=== PATIENT | male | born 1960 | race Caucasian/White ===

== ENCOUNTER 2017-08-08 11:28 | Emergency (ER) | payer MEDICAID ==
[2017-08-08] MEDS ORDERED: ASPIRIN 81 MG TABLET, CHEWABLE PO ONE (12:01)
--- NOTE | 2017-08-08 12:03 | ER Document Report ---
ED Medical Screen (RME) - General Chief Complaint: Chest Pain Stated Complaint: CHEST PAIN Time Seen by Provider: 08/08/17 11:55 Notes: RME DISCLOSURE I have seen this patient as part of a Rapid Medical Evaluation and, if applicable, placed any initially appropriate orders. The patient will be seen and fully evaluated, including a full history and physical exam, by a provider ( in Main ED or Fast Track) when a room becomes available. 56-year-old male PMH tobacco abuse COPD here with complaints of left-sided constant chest pain ongoing for the past 2-3 days. Pain is worse with coughing and deep breathing. It is not worse with exertion. He denies any extremity pain/swelling. Denies prior history of PE DVT or pneumothorax. He does smoke 1 pack of cigarettes daily for the past 40 years. Per chart review, his prior chest CT does show bilateral apical blebs. TRAVEL OUTSIDE OF THE [place] IN LAST 30 DAYS: No - Related Data Allergies/Adverse Reactions: adhesive [Adhesive] Allergy (Verified 08/08/17 11:53) pseudoephedrine HCl [From Sudafed] Allergy (Verified 08/08/17 11:53) Home Medications: pt unsure of names - sleep medications Past Medical History - Social History Chew tobacco use (# tins/day): No Frequency of alcohol use: None Drug Abuse: None - Past Medical History Cardiac Medical History: Reports: Hx Hypercholesterolemia Pulmonary Medical History: Reports: Hx COPD, Hx Pneumonia Denies: Hx Tuberculosis Neurological Medical History: Denies: Hx Seizures Renal/ Medical History: Denies: Hx Peritoneal Dialysis Musculoskeltal Medical History: Reports Hx Arthritis, Reports Hx Muscle Weakness , Reports Hx Musculoskeletal Deformity, Reports Hx Musculoskeletal Trauma Psychiatric Medical History: Reports: Hx Anxiety, Hx Depression Past Surgical History: Reports: Hx Abdominal Surgery - hernia repair, Hx Appendectomy, Hx Cholecystectomy, Hx Herniorrhaphy. Denies: Hx Pacemaker - Immunizations Immunizations up to date: Yes Hx Diphtheria, Pertussis, Tetanus Vaccination: Yes Physical Exam - Vital signs Vitals: Temp Pulse Resp BP Pulse Ox 97.5 F 66 20 121/78 96 08/08/17 11:43 08/08/17 11:43 08/08/17 11:43 08/08/17 11:43 08/08/17 11:43 Course - Vital Signs Vital signs: Temp Pulse Resp BP Pulse Ox 97.5 F 66 20 121/78 96 08/08/17 11:43 08/08/17 11:43 08/08/17 11:43 08/08/17 11:43 08/08/17 11:43
[2017-08-08 12:26] LABS: ABSOLUTE BASOPHILS # (AUTO) 0.1 10^3/uL (0.0-0.2); ABSOLUTE EOSINOPHILS # (AUTO) 0.1 10^3/uL (0.0-0.6); ABSOLUTE LYMPHOCYTES (AUTO) 2.4 10^3/uL (0.5-4.7); ABSOLUTE MONOCYTES (AUTO) 1.1 10^3/uL (0.1-1.4); ABSOLUTE NEUT (AUTO) 7.9 10^3/uL (1.7-8.2); BASOPHILS % (AUTO) 0.6 % (0-2); EOSINOPHILS % (AUTO) 0.8 % (0-6); HEMOGLOBIN 15.3 g/dL (13.5-17.0); LYMPHOCYTES % (AUTO) 20.6 % (13-45); MEAN CORPUSCULAR HEMOGLOBIN 28.6 pg (27.0-33.4); MEAN CORPUSCULAR HGB CONC 33.2 g/dL (32.0-36.0); MEAN CORPUSCULAR VOLUME 86 fl (80-97); MONOCYTES % (AUTO) 9.2 % (3-13); PLATELET COUNT 221 10^3/uL (150-450); RED BLOOD COUNT 5.35 10^6/uL (4.35-5.55); RED CELL DISTRIBUTION WIDTH 13.8 % (11.5-14.0); SEGMENTED NEUTROPHILS % (AUTO) 68.8 % (42-78); TOTAL CELLS COUNTED % (AUTO) 100 %; WHITE BLOOD COUNT 11.4 10^3/uL (4.0-10.5)
[2017-08-08 12:43] LABS: ANION GAP 13 (5-19); BLOOD UREA NITROGEN 13 mg/dL (7-20); CALCIUM 9.6 mg/dL (8.4-10.2); CARBON DIOXIDE 30 mmol/L (22-30); CHLORIDE 103 mmol/L (98-107); GLUCOSE 108 mg/dL (75-110); POTASSIUM 4.8 mmol/L (3.6-5.0); SODIUM 145.7 mmol/L (137-145)
--- NOTE | 2017-08-08 13:01 | RADIOLOGY REPORT (SQ) ---
EXAM DESCRIPTION: CHEST 2 VIEWS COMPLETED DATE/TIME: 08/08/2017 12:41 pm REASON FOR STUDY: smoker; CP worse w coughing; eval ptx pna COMPARISON: 02/13/2015 EXAM PARAMETERS: NUMBER OF VIEWS: two views TECHNIQUE: Digital Frontal and Lateral radiographic views of the chest acquired. RADIATION DOSE: NA LIMITATIONS: none FINDINGS: LUNGS AND PLEURA: Patchy left lower lobe airspace disease. Lungs and pleural spaces other allen clear. MEDIASTINUM AND HILAR STRUCTURES: No masses or contour abnormalities. HEART AND VASCULAR STRUCTURES: Heart normal size. No evidence for failure. BONES: No acute findings. HARDWARE: None in the chest. OTHER: No other significant finding. IMPRESSION: PATCHY LEFT LOWER LOBE AIRSPACE DISEASE MAY REPRESENT DEVELOPING PNEUMONIA. TECHNICAL DOCUMENTATION: JOB ID: [id number] [employer]- All Rights Reserved Reading location - IP/workstation name: [email or web address]
[2017-08-08] MEDS ORDERED: GUAIFENESIN/D-METHORPHAN (200-20 MG) SYRUP 10 ML PO ONE (13:07)
[2017-08-08] MEDS ORDERED: IPRATROPIUM/ALBUTEROL 0.5-2.5 MG/3 ML AMPUL NEB ONE (13:07)
--- NOTE | 2017-08-08 13:36 | RADIOLOGY REPORT (SQ) ---
EXAM DESCRIPTION: CTA CHEST COMPLETED DATE/TIME: 08/08/2017 1:25 pm REASON FOR STUDY: elevated d dimer, cp, sob COMPARISON: CT ABDOMEN 02/13/[address] CHEST 09/06/2014 TECHNIQUE: CT scan of the chest performed using helical scanning technique with dynamic intravenous contrast injection. Images reviewed with lung, soft tissue and bone windows. Reconstructed coronal and sagittal MPR images reviewed. Additional 3 dimensional post-processing performed to develop Maximal Intensity Projection images (WI P). All images stored on PACS. All CT scanners at this facility use dose modulation, iterative reconstruction, and/or weight based d osing when appropriate to reduce radiation dose to as low as reasonably achievable (ALARA). [facility]: Dose Right [facility]: CareDose [facility]: Dose Right [facility]: Teradose 4D [facility]: CareFamily CONTRAST TYPE AND DOSE: contrast/concentration: Isovue 370.00 mg/ml; Total Contrast Delivered: 82.0 ml; Total Saline Delivered: 110.0 ml Contrast bolus optimized for the pulmonary arteries. Not diagnostic for the aorta. RENAL FUNCTION: Creatinine measures 1.07 RADIATION DOSE: CT Rad equipment meets quality standard of care and radiation dose reduction techniq ues were employed. CTDIvol: 25.7 - 46.3 mGy. DLP: 1064 mGy-cm. . LIMITATIONS: None. FINDINGS: LUNGS AND PLEURA: Stable degree of paraseptal emphysema. No masses, infiltrates, pneumoth orax. No pleural effusions, calcifications. AORTA AND GREAT VESSELS: No aneurysm. Contrast bolus not optimized for the aorta. HEART: No pericardial effusion. No significant coronary artery calcifications. PULMONARY ARTERIES: No emboli visualized in the main pulmonary arteries or the segmental branches. HILAR AND MEDIASTINAL STRUCTURES: No identified masses or abnormal nodes. HARDWARE: None in the chest. UPPER ABDOMEN: The patient is again noted to be status post cholecystectomy with stable mild dilated common bile duct measuring up to 11 mm. There is a new metallic density seen within the distal commo n bile duct just proximal to the ampulla of Vater on series 3, image 139. THYROID AND OTHER SOFT TISSUES: No masses. No adenopathy. BONES: No acute or significant finding. 3D MIPS: Confirm above findings. OTHER: No other significant finding. IMPRESSION: UNREMARKABLE CTA CHEST WITHOUT PULMONARY EMBOLI IDENTIFIED. METALLIC DENSITY SEEN WITHIN THE DISTAL COMMON BILE DUCT PATIENT IS STATUS POST CHOLECYSTECTOMY. COR RELATE WITH BILIARY ENZYMES AND CONSIDER GI CONSULTATION FOR ERCP. COMMENT: Quality ID # [id number]: Final reports with documentation of one or more dose reduction techniques (e.g., Automated exposure control, adjustment of the mA and/or kV according to patient size, use of iterative reconstruction technique) TECHNICAL DOCUMENTATION: JOB ID: [id number] [employer]- All Rights Reserved Reading location - IP/workstation name: [email or web address]
--- NOTE | 2017-08-08 14:55 | ER Document Report ---
ED General - General Chief Complaint: Chest Pain Stated Complaint: CHEST PAIN Time Seen by Provider: 08/08/17 11:55 Mode of Arrival: Ambulatory Information source: Patient Notes: Patient is a 56-year-old male with COPD who presents to the ER today for about 1 week of productive cough, shortness of breath and wheezing. Patient has no inhaler at home and has not been taking anything [id number] for his symptoms. He admits to fever and chills but has not checked his temperature. He admits to some intermittent chest pain with coughing. TRAVEL OUTSIDE OF THE [place] IN LAST 30 DAYS: No - Related Data Allergies/Adverse Reactions: adhesive [Adhesive] Allergy (Verified 08/08/17 11:53) pseudoephedrine HCl [From Sudafed] Allergy (Verified 08/08/17 11:53) Home Medications: pt unsure of names - sleep medications Past Medical History - General Information source: Patient - Social History Smoking Status: Current Every Day Smoker Chew tobacco use (# tins/day): No Frequency of alcohol use: None Drug Abuse: None Family History: Reviewed & Not Pertinent Patient has suicidal ideation: No Patient has homicidal ideation: No - Past Medical History Cardiac Medical History: Reports: Hx Hypercholesterolemia Pulmonary Medical History: Reports: Hx COPD, Hx Pneumonia Denies: Hx Tuberculosis Neurological Medical History: Denies: Hx Seizures Renal/ Medical History: Denies: Hx Peritoneal Dialysis Musculoskeltal Medical History: Reports Hx Arthritis, Reports Hx Muscle Weakness , Reports Hx Musculoskeletal Deformity, Reports Hx Musculoskeletal Trauma Psychiatric Medical History: Reports: Hx Anxiety, Hx Depression Past Surgical History: Reports: Hx Abdominal Surgery - hernia repair, Hx Appendectomy, Hx Cholecystectomy, Hx Herniorrhaphy. Denies: Hx Pacemaker - Immunizations Immunizations up to date: Yes Hx Diphtheria, Pertussis, Tetanus Vaccination: Yes Review of Systems - Review of Systems Notes: Had Constitutional: See HPI EENT: No symptoms reported Cardiovascular: No symptoms reported Respiratory: See HPI Gastrointestinal: No symptoms reported Genitourinary: No symptoms reported Male Genitourinary: No symptoms reported Musculoskeletal: No symptoms reported Skin: No symptoms reported Hematologic/Lymphatic: No symptoms reported Neurological/Psychological: No symptoms reported Physical Exam - Vital signs Vitals: Temp Pulse Resp BP Pulse Ox 97.5 F 66 20 121/78 96 08/08/17 11:43 08/08/17 11:43 08/08/17 11:43 08/08/17 11:43 08/08/17 11:43 - Notes Notes: PHYSICAL EXAMINATION: GENERAL: Mildly ill-appearing, but in no acute distress. HEAD: Atraumatic, normocephalic. EYES: Pupils equal round and reactive to light, extraocular movements intact, sclera anicteric, conjunctiva are normal. ENT: ear canals without erythema or foreign body, TMs pearly velasquez with good bony landmarks, nares patent, oropharynx clear without exudates. Moist mucous membranes. NECK: Normal range of motion, supple without lymphadenopathy LUNGS: rhonchi bilateral upper and lower lobes, No wheezes rales HEART: Regular rate and rhythm without murmurs ABDOMEN: Soft, no tenderness. No guarding, no rebound BACK: no vertebral tenderness, normal ROM GI/: no CVA tenderness EXTREMITIES: Normal range of motion, no pitting edema. No cyanosis. NEUROLOGICAL: Cranial nerves grossly intact. Normal sensory/motor exams. PSYCH: Normal mood, normal affect. SKIN: Warm, Dry, normal turgor, no rashes or lesions noted Course - Re-evaluation Re-evalutation: 08/08/17 17:57 D-dimer was ordered in triage which was elevated so CTA of the chest was performed and negative for any acute pathology, however chest x-ray did report a left lower lobe patchy opacity, probable pneumonia. Patient given antibiotics , cough medication, breathing treatments, steroids to go home with. Patient did get DuoNeb and cough medication here and does feel better. Vital signs are all stable, patient is afebrile with a normal respiratory rate and pulse ox on room air. 08/08/17 17:59 Cardiac enzymes negative, EKG reveals a normal sinus rhythm without evidence of ischemia or abnormality. - Vital Signs Vital signs: Temp Pulse Resp BP Pulse Ox 97.8 F 66 9 L 99/63 L 92 08/08/17 15:07 08/08/17 11:43 08/08/17 15:00 08/08/17 15:00 08/08/17 15:00 - Laboratory Result Diagrams: 08/08/17 12:04 08/08/17 12:04 Laboratory results interpreted by me: 08/08/17 08/08/17 08/08/17 12:04 12:04 12:04 WBC 11.4 H D-Dimer 0.73 H Sodium 145.7 H Discharge - Discharge Clinical Impression: Pneumonia Qualifiers: Pneumonia type: due to unspecified organism Laterality: unspecified laterality Lung location: unspecified part of lung Qualified Code(s): J18.9 - Pneumonia, unspecified organism Chronic obstructive pulmonary disease Qualifiers: COPD type: unspecified COPD Qualified Code(s): J44.9 - Chronic obstructive pulmonary disease, unspecified Condition: Stable Disposition: HOME, SELF-CARE Additional Instructions: Return immediately for any new or worsening symptoms. Follow up with primary care provider, call tomorrow to make followup appointment. Prescriptions: Albuterol Sulfate [Proair HFA] 1 - 2 puff IH Q4 PRN #1 inhaler PRN Reason: Azithromycin [Zithromax 250 mg Tablet] 250 mg PO ASDIR PRN #6 tablet PRN Reason: Guaifenesin/D-Methorphan Hb [Robitussin-Dm Syrup 10 Ml Udcup] 10 ml PO Q4 PRN # 120 ml PRN Reason: Prednisone 60 mg PO DAILY #30 tablet Referrals: JP MENDES MD [Primary Care Provider] - Follow up as needed
[2017-08-08 15:01] VITALS: BP 99/63
--- NOTE | 2017-08-08 17:18 | EKG REPORT ---
SEVERITY:- ABNORMAL ECG - SINUS RHYTHM LEFT ANTERIOR FASCICULAR BLOCK : Confirmed by: Alejandra Islas 08-Aug-2017 17:17:04
== END 2017-08-08 15:07 | disposition home or self-care (01) ==
LOC: ER 11:28
DX: J44.0 Chronic obstructive pulmonary disease with (acute) lower respiratory infection (principal); J18.9 Pneumonia, unspecified organism; R05 Cough; R06.02 Shortness of breath; R07.89 Other chest pain; R79.1 Abnormal coagulation profile; F17.200 Nicotine dependence, unspecified, uncomplicated; Z88.8 Allergy status to other drugs, medicaments and biological substances; Z91.048 Other nonmedicinal substance allergy status
CPT/HCPCS: 93005; 94640; 99285; 36415; 85025; 80048; 84484; 85379; 71046; 71275; 93010; J3490; J7620

== ENCOUNTER → 2018-08-25 | Outpatient (CLI) | payer MEDICAID ==
--- NOTE | 2018-08-25 12:37 | RADIOLOGY REPORT (SQ) ---
EXAM DESCRIPTION: CT ABD/PELVIS COMBO COMPLETED DATE/TIME: 08/25/2018 11:30 am REASON FOR STUDY: HEMATURIA (R31.9) R31.9 HEMATURIA, UNSPECIFIED COMPARISON: None. TECHNIQUE: CT scan of the abdomen and pelvis performed with and without intravenous contrast, and wi thout oral contrast. Contrasted imaging performed helical scanning technique and dynamic intravenous contrast injection. Images reviewed with lung, soft tissue, and bone windows. Reconstructed coronal a nd sagittal MPR images reviewed. Delayed images for evaluation of the urinary system also acquired. A ll images stored on PACS. All CT scanners at this facility use dose modulation, iterative reconstruction, and/or weight based d osing when appropriate to reduce radiation dose to as low as reasonably achievable (ALARA). [facility]: Dose Right [facility]: CareDose [facility]: Dose Right [facility]: Teradose 4D [facility]: [place] CONTRAST TYPE AND DOSE: contrast/concentration: Isovue 350.00 mg/ml; Total Contrast Delivered: 100.0 ml; Total Saline Delivered: 72.0 ml RENAL FUNCTION: Creatinine 1.2 RADIATION DOSE: CT Rad equipment meets quality standard of care and radiation dose reduction techniq ues were employed. CTDIvol: 18.1 - 20.6 mGy. DLP: 3209 mGy-cm. . LIMITATIONS: None. FINDINGS: NON-CONTRASTED IMAGING: No renal, ureteral, or bladder calcifications. POST-CONTRASTED IMAGING: LOWER CHEST: No significant findings. No nodules or infiltrates. LIVER: Normal size. No masses. No dilated ducts. SPLEEN: Normal size. No focal lesions. PANCREAS: No masses. No significant calcifications. No adjacent inflammation or peripancreatic fluid collections. Pancreatic duct not dilated. GALLBLADDER: Surgically absent. ADRENAL GLANDS: No significant masses or asymmetry. RIGHT KIDNEY AND URETER: No solid masses. No significant calcifications. No hydronephrosis or hyd roureter. LEFT KIDNEY AND URETER: No solid masses. No significant calcifications. No hydronephrosis or hydr oureter. AORTA AND VESSELS: No aneurysm. No dissection. Renal arteries, SMA, celiac without stenosis. RETROPERITONEUM: No retroperitoneal adenopathy, hemorrhage or masses. BOWEL AND PERITONEAL CAVITY: No masses or inflammatory changes. No free fluid or peritoneal masses. APPENDIX: Surgically absent. PELVIS: No mass. No free fluid. Normal bladder. ABDOMINAL WALL: No masses. No hernias. BONES: No significant or acute findings. OTHER: No other significant finding. IMPRESSION: No significant or acute abnormality in the abdomen or pelvis. There is no explanation f or gross hematuria. TECHNICAL DOCUMENTATION: JOB ID: [id number] Quality ID # [id number]: Final reports with documentation of one or more dose reduction techniques (e.g., Au tomated exposure control, adjustment of the mA and/or kV according to patient size, use of iterative reconstruction technique) 2010 [employer]- All Rights Reserved Reading location - IP/workstation name: [email or web address]
== END ==
LOC: RAD 10:48
PROVIDERS: ATTEND Internal Medicine
DX: R31.9 Hematuria, unspecified (principal)
CPT/HCPCS: 74178; 82565

== ENCOUNTER 2018-09-11 20:41 | Emergency (ER) | payer MEDICAID ==
[2018-09-11] MEDS ORDERED: NORMAL SALINE 1000 ML 1,000 ML IV ONE (21:28)
[2018-09-11] MEDS ORDERED: ONDANSETRON HCL INJ/PF 4 MG/2 ML SDV IV ONE (21:28)
[2018-09-11 21:38] LABS: ABSOLUTE EOSINOPHILS # (AUTO) 0.1 10^3/uL (0.0-0.6); ABSOLUTE LYMPHOCYTES (AUTO) 1.1 10^3/uL (0.5-4.7); ABSOLUTE MONOCYTES (AUTO) 0.8 10^3/uL (0.1-1.4); ABSOLUTE NEUT (AUTO) 7.2 10^3/uL (1.7-8.2); BASOPHILS % (AUTO) 0.5 % (0-2); EOSINOPHILS % (AUTO) 0.7 % (0-6); HEMATOCRIT 42.8 % (37.9-51.0); HEMOGLOBIN 14.3 g/dL (13.5-17.0); MEAN CORPUSCULAR HEMOGLOBIN 28.1 pg (27.0-33.4); MEAN CORPUSCULAR HGB CONC 33.3 g/dL (32.0-36.0); MEAN CORPUSCULAR VOLUME 84 fl (80-97); MONOCYTES % (AUTO) 8.4 % (3-13); PLATELET COUNT 247 10^3/uL (150-450); RED BLOOD COUNT 5.08 10^6/uL (4.35-5.55); RED CELL DISTRIBUTION WIDTH 13.7 % (11.5-14.0); SEGMENTED NEUTROPHILS % (AUTO) 78.4 % (42-78); TOTAL CELLS COUNTED % (AUTO) 100 %; WHITE BLOOD COUNT 9.1 10^3/uL (4.0-10.5)
[2018-09-11 21:55] LABS: ALANINE AMINOTRANSFERASE 132 U/L (21-72); ALBUMIN 4.2 g/dL (3.5-5.0); ALKALINE PHOSPHATASE 451 U/L (38-126); ANION GAP 12 (5-19); ASPARTATE AMINO TRANSFERASE 204 U/L (17-59); BILIRUBIN,DIRECT 1.6 mg/dL (0.0-0.4); BLOOD UREA NITROGEN 9 mg/dL (7-20); CALCIUM 10.7 mg/dL (8.4-10.2); CARBON DIOXIDE 29 mmol/L (22-30); CHLORIDE 101 mmol/L (98-107); GLUCOSE 135 mg/dL (75-110); POTASSIUM 4.2 mmol/L (3.6-5.0); TOTAL PROTEIN 7.6 g/dL (6.3-8.2)
[2018-09-11 22:06] LABS: CREATINE KINASE MB 2.24 ng/mL (<4.55); TROPONIN I < 0.012 ng/mL
[2018-09-11] MEDS ORDERED: HYDROMORPHONE HCL INJ/PF 2 MG/ML AMPULE IV ONE (22:53)
[2018-09-11] MEDS ORDERED: PROMETHAZINE HCL INJ 25 MG/1 ML VIAL IM ONE (22:53)
--- NOTE | 2018-09-11 23:49 | ER Document Report ---
ED General - General Chief Complaint: Abdominal Pain Stated Complaint: ABDOMNAL PAIN Time Seen by Provider: 09/11/18 22:47 Primary Care Provider: JP MENDES MD [Primary Care Provider] - Follow up as needed Notes: This is 58-year-old male presents with complaint of upper abdominal pain and vomiting after eating some strawberries. Most of right upper quadrant. He does have a history of cholecystectomy that he says proximal 15 years ago. 2 to 3 years after that he developed what sounds to be a hernia and had mesh placed. Denies any surgery since then. He denies drinking alcohol. Denies fevers. Denies infections. Says he still has pain in the upper abdomen. No diarrhea. No dysuria. Last bowel movement was early this morning and was normal. TRAVEL OUTSIDE OF THE [place] IN LAST 30 DAYS: No - Related Data Allergies/Adverse Reactions: adhesive [Adhesive] Allergy (Verified 08/08/17 11:53) pseudoephedrine HCl [From Sudafed] Allergy (Verified 08/08/17 11:53) Past Medical History - Social History Smoking Status: Current Every Day Smoker Chew tobacco use (# tins/day): No Frequency of alcohol use: None Drug Abuse: None Family History: Reviewed & Not Pertinent Patient has suicidal ideation: No Patient has homicidal ideation: No - Past Medical History Cardiac Medical History: Reports: Hx Hypercholesterolemia Pulmonary Medical History: Reports: Hx COPD, Hx Pneumonia Denies: Hx Tuberculosis Neurological Medical History: Denies: Hx Seizures Renal/ Medical History: Denies: Hx Peritoneal Dialysis Musculoskeletal Medical History: Reports Hx Arthritis, Reports Hx Muscle Weakness, Reports Hx Musculoskeletal Deformity, Reports Hx Musculoskeletal Trauma Psychiatric Medical History: Reports: Hx Anxiety, Hx Depression Past Surgical History: Reports: Hx Abdominal Surgery - hernia repair, Hx Appendectomy, Hx Cholecystectomy, Hx Herniorrhaphy. Denies: Hx Pacemaker - Immunizations Immunizations up to date: Yes Hx Diphtheria, Pertussis, Tetanus Vaccination: Yes Review of Systems - Review of Systems Notes: My Normal Review Basic REVIEW OF SYSTEMS: CONSTITUTIONAL : Denies fever, chills, or sweats. Denies recent illness. EENT: Denies eye, ear, throat, or mouth pain or symptoms. Denies nasal or sinus congestion. CARDIOVASCULAR: Denies chest pain. RESPIRATORY: Denies cough, cold, or chest congestion. Denies shortness of breath, difficulty breathing, or wheezing. GASTROINTESTINAL: Upper abdominal pain. Has vomiting. MUSCULOSKELETAL: Denies neck or back pain or joint pain or swelling. SKIN: Denies rash or skin lesions. NEUROLOGICAL: Denies altered mental status or loss of consciousness. Denies headache. Denies weakness or paralysis or loss of use of either side. Denies problems with gait or speech. Denies sensory or motor loss. ALL OTHER SYSTEMS REVIEWED AND NEGATIVE. Physical Exam - Vital signs Vitals: Temp Pulse Resp BP Pulse Ox 98.3 F 58 L 18 131/84 H 94 09/11/18 20:51 09/11/18 20:51 09/11/18 20:51 09/11/18 20:51 09/11/18 20:51 - Notes Notes: General Appearance: Well nourished, alert, cooperative, no acute distress, mild obvious discomfort. Vitals: reviewed, See vital signs table. Head: no swelling or tenderness to the head Eyes: PERRL, EOMI, Conjuctiva clear Mouth: No decreasd moisture Lungs: No wheezing, No rales, No rhonci, No accessory muscle use, good air exchange bilaterally. Heart: Normal rate, Regular rythm, No murmur, no rub Abdomen: Normal BS, soft, No rigidity, patient has moderate right upper quadrant and epigastric abdominal tenderness to palpation. No pain to palpation over lower abdomen. Some guarding to the right upper quadrant. Extremities: strength 5/5 in all extremities, good pulses in all extremities, no swelling or tenderness in the extremities, no edema. Skin: warm, dry, appropriate color, no rash Neuro: speech clear, oriented x 3, normal affect, responds appropriately to que stions. Course - Re-evaluation Re-evalutation: 09/12/18 02:02 I did speak with Dr. Hill , hospitalist at this in a [facility], who agrees to accept the patient. Patient appears to have a retained common bile duct stone which will likely require ERCP for removal. We do not have any GI coverage here to do an ERCP and therefore patient has to be transferred. Shortly after I got off the phone the patient started to have some oxygen desaturation. This appears to be because his pain is coming back and he is splinting his breathing. I did relate some to his lungs and his lung whaley are clear. Does not require any breathing treatments. I did put on some nasal cannula to bring his oxygen saturation back up to normal. He quickly responded to the nasal cannula. We will give him a dose of pain medicine to help decrease his pain so that he is not splinting his breathing. Dictation of this chart was performed using voice recognition software; therefore, there may be some unintended grammatical errors. - Vital Signs Vital signs: Temp Pulse Resp BP Pulse Ox 98.3 F 58 L 18 131/84 H 94 09/11/18 20:51 09/11/18 20:51 09/11/18 20:51 09/11/18 20:51 09/11/18 20:51 - Laboratory Result Diagrams: 09/11/18 21:25 09/11/18 21:25 Laboratory results interpreted by me: 09/11/18 09/11/18 09/11/18 21:25 21:25 23:44 Seg Neutrophils % 78.4 H Lymphocytes % 12.0 L Glucose 135 H Calcium 10.7 H Total Bilirubin 2.0 H Direct Bilirubin 1.6 H AST 204 H ALT 132 H Alkaline Phosphatase 451 H Urine Ketones TRACE H Urine Bilirubin SMALL H Urine Urobilinogen 4.0 H Discharge - Discharge Clinical Impression: Common bile duct (CBD) obstruction Condition: Stable Disposition: [facility] Referrals: JP MENDES MD [Primary Care Provider] - Follow up as needed
--- NOTE | 2018-09-12 00:03 | RADIOLOGY REPORT (SQ) ---
EXAM DESCRIPTION: US ABDOMEN DOPPLER LIMITED COMPLETED DATE/TME: 09/11/2018 22:53 CLINICAL HISTORY: 58 years, Male, RUQ pain, elevated LFTs, previous cholecystectomy COMPARISON: Prior CT from 08/25/2018 TECHNIQUE: 2-D sonographic images of the abdomen were performed. Doppler and spectral wave forms were also utilized. LIMITATIONS: None. FINDINGS: The pancreas is obscured by overlying bowel gas artifact. The proximal abdominal aorta measures 2.7 cm in AP diameter. However, the mid to distal portions of the abdominal aorta were obscured by overlying bowel gas. The liver appears overall normal in echogenicity. It measures 17 cm in length. No focal liver lesions are appreciated. Antegrade flow is documented within the main portal vein. Common bile duct diameter measures 1.3 cm, similar to the previous CT dated 08/25/2018. However, the patient is status post cholecystectomy. No obvious intrahepatic biliary duct dilatation is evident. Right kidney measures 9.6 x 4.7 cm in size. No gross evidence of hydronephrosis. IMPRESSION: Substantially limited examination secondary to patient body habitus/bowel gas. Mild common bile duct dilatation (1.3 cm). This is potentially related to prior cholecystectomy. Correlate for obstructive laboratories. No other acute sonographic abnormality within the limitations of the exam. 2.7 cm abdominal aortic aneurysm suspected. Recommend follow-up every 5 years. Reference: J Vasc Surg 2009 Oct;50(4 Suppl):S2-49. copyright 2010 [employer]- All Rights Reserved
[2018-09-12 00:06] LABS: APPEARANCE,URINE CLEAR; BILIRUBIN,URINE SMALL (NEGATIVE); COLOR,URINE AMBER; GLUCOSE, URINE NEGATIVE (NEGATIVE); KETONES,URINE TRACE mg/dL (NEGATIVE); LEUKOCYTE ESTERASE,URINE NEGATIVE (NEGATIVE); NITRITE,URINE NEGATIVE (NEGATIVE); PROTEIN,URINE NEGATIVE (NEGATIVE); URINE SPECIFIC GRAVITY 1.023
--- NOTE | 2018-09-12 01:05 | RADIOLOGY REPORT (SQ) ---
CLINICAL HISTORY: abdominal pain and vomiting COMPARISON: 08/25/2018. TECHNIQUE: CT ABDOMEN PELVIS WITH IV CONTRAST on 09/11/2018 11:57 PM CDT This exam was performed according to our departmental dose-optimization program, which includes automated exposure control, adjustment of the mA and/or kV according to patient size and/or use of iterative reconstruction technique. FINDINGS: Lower lungs are clear. Abdomen: The liver is normal in appearance. There is no biliary dilatation. The pancreas and spleen are normal in appearance. Adrenal glands are normal. Kidneys are mildly atrophic. Several small cyst in the right kidney. Abdominal aorta is normal in course and caliber without aneurysm. There is no free air. There is no retroperitoneal adenopathy. Pelvis: There is no bowel obstruction. Urinary bladder is unremarkable. There is no free fluid. Appendix is not clearly seen. Skeleton: There are no acute osseous findings. No suspicious bony lesions. IMPRESSION: Biliary dilatation with choledocholithiasis. The common bile duct stone has advanced distally.
[2018-09-12] MEDS ORDERED: HYDROMORPHONE HCL INJ/PF 2 MG/ML AMPULE IV ONE ×2 (02:00→06:01)
[2018-09-12] MEDS ORDERED: HYDROMORPHONE HCL INJ/PF 2 MG/ML AMPULE IV PRN (09:42)
[2018-09-12 11:10] VITALS: BP 147/92
== END 2018-09-12 11:20 | disposition short-term general hospital (02) ==
LOC: ER 20:41
DX: K83.1 Obstruction of bile duct (principal); R10.10 Upper abdominal pain, unspecified; R11.10 Vomiting, unspecified; F17.200 Nicotine dependence, unspecified, uncomplicated; E78.00 Pure hypercholesterolemia, unspecified; Z90.49 Acquired absence of other specified parts of digestive tract
CPT/HCPCS: 96376; 99285; 96372; 96361; 96374; 96375; 36415; 82553; 83690; 85025; 80053; 81001; 84484; 76705; 93976; 74177; J1170 ×2; J2550; J2405; J7030

== ENCOUNTER 2019-07-06 20:13 | Inpatient (IN) | payer MEDICAID ==
--- NOTE | 2019-07-06 21:47 | EKG REPORT ---
SEVERITY:- ABNORMAL ECG - SINUS RHYTHM ATRIAL PREMATURE COMPLEX LEFT ANTERIOR FASCICULAR BLOCK LOW VOLTAGE THROUGHOUT BORDERLINE R WAVE PROGRESSION, ANTERIOR LEADS NONSPECIFIC T ABNORMALITIES, INFERIOR LEADS BORDERLINE PROLONGED QT INTERVAL : Confirmed by: Yanira Child MD 06-Jul-2019 21:46:55
[2019-07-06 22:25] LABS: ABSOLUTE BASOPHILS # (AUTO) 0.1 10^3/uL (0.0-0.2); ABSOLUTE EOSINOPHILS # (AUTO) 0.2 10^3/uL (0.0-0.6); ABSOLUTE LYMPHOCYTES (AUTO) 1.9 10^3/uL (0.5-4.7); ABSOLUTE MONOCYTES (AUTO) 1.1 10^3/uL (0.1-1.4); ABSOLUTE NEUT (AUTO) 6.1 10^3/uL (1.7-8.2); BASOPHILS % (AUTO) 0.8 % (0-2); EOSINOPHILS % (AUTO) 1.8 % (0-6); HEMATOCRIT 44.3 % (37.9-51.0); HEMOGLOBIN 14.5 g/dL (13.5-17.0); LYMPHOCYTES % (AUTO) 20.3 % (13-45); MEAN CORPUSCULAR HEMOGLOBIN 27.2 pg (27.0-33.4); MEAN CORPUSCULAR HGB CONC 32.6 g/dL (32.0-36.0); MEAN CORPUSCULAR VOLUME 84 fl (80-97); MONOCYTES % (AUTO) 12.2 % (3-13); PLATELET COUNT 195 10^3/uL (150-450); RED BLOOD COUNT 5.31 10^6/uL (4.35-5.55); RED CELL DISTRIBUTION WIDTH 15.2 % (11.5-14.0); SEGMENTED NEUTROPHILS % (AUTO) 64.9 % (42-78); TOTAL CELLS COUNTED % (AUTO) 100 %; WHITE BLOOD COUNT 9.4 10^3/uL (4.0-10.5)
--- NOTE | 2019-07-06 22:25 | ER Document Report ---
ED General - General Chief Complaint: Shortness Of Breath Stated Complaint: SHORTNESS OF BREATH Time Seen by Provider: 07/06/19 22:08 Primary Care Provider: JP MENDES MD [Primary Care Provider] - Follow up as needed Mode of Arrival: Medic Notes: 58-year-old male arrives via EMS with cc of SOB cough x 1 week and chest pressure; pt was placed on 10 L O2 b/o initial pulse ox of 80% room air; he increased pulse ox to 96%. pt was given A/A treatment and C PAP but resisted this because he felt more airway irritation and was instead placed on BiPAP; pt on my exam reveals patient has stasis leg cellulitis and +2 pitting edema to his knees bilaterally. He denies any prior history of CHF. Patient has a body habitus that resembles a long daigle hair fairly greasy unkept with daigle velazquez and beer belly type. Patient appears to be on Latuda and Klonopin and patient has a history of encephalopathy rhabdomyolysis tobacco abuse COPD TRAVEL OUTSIDE OF THE [place] IN LAST 30 DAYS: No - Related Data Allergies/Adverse Reactions: adhesive [Adhesive] Allergy (Verified 08/08/17 11:53) pseudoephedrine HCl [From Sudafed] Allergy (Verified 08/08/17 11:53) Home Medications: Hydroxyzine Hcl. Clonazepam. Anoro ellipta. Latuda. Proair. Clonidine Past Medical History - General Information source: Patient, Emergency Med Personnel - Social History Smoking Status: Current Some Day Smoker Cigarette use (# per day): No Chew tobacco use (# tins/day): No Smoking Education Provided: No Frequency of alcohol use: Occasional Drug Abuse: None Lives with: Other - unknown at present Family History: Reviewed & Not Pertinent Patient has suicidal ideation: No Patient has homicidal ideation: No - Past Medical History Cardiac Medical History: Reports: Hx Hypercholesterolemia Pulmonary Medical History: Reports: Hx COPD, Hx Pneumonia Denies: Hx Tuberculosis Neurological Medical History: Denies: Hx Seizures Renal/ Medical History: Denies: Hx Peritoneal Dialysis Musculoskeletal Medical History: Reports Hx Arthritis, Reports Hx Muscle Weakness, Reports Hx Musculoskeletal Deformity, Reports Hx Musculoskeletal Trauma Psychiatric Medical History: Reports: Hx Anxiety, Hx Depression Past Surgical History: Reports: Hx Abdominal Surgery - hernia repair, Hx Appendectomy, Hx Cholecystectomy, Hx Herniorrhaphy. Denies: Hx Pacemaker - Immunizations Immunizations up to date: Yes Hx Diphtheria, Pertussis, Tetanus Vaccination: Yes Review of Systems - Review of Systems Constitutional: See HPI, Malaise, Weakness, Recent illness EENT: See HPI, Ear pain, Nose discharge, Throat pain Cardiovascular: No symptoms reported, See HPI, Dizziness, Lightheaded, Edema Respiratory: See HPI, Cough, Short of breath Gastrointestinal: No symptoms reported Genitourinary: No symptoms reported Male Genitourinary: No symptoms reported Musculoskeletal: No symptoms reported Skin: No symptoms reported Hematologic/Lymphatic: No symptoms reported Neurological/Psychological: See HPI, Weakness Physical Exam - Vital signs Vitals: Temp Resp BP Pulse Ox 98.0 F 17 132/101 H 100 07/06/19 20:24 07/06/19 20:24 07/06/19 20:24 07/06/19 20:24 Interpretation: Tachycardic, Tachypneic - General General appearance: Lethargic In distress: Mild - HEENT Head: Normocephalic Eyes: Normal Conjunctiva: Normal Cornea: Normal Extraocular movements intact: Yes Eyelashes: Normal Pupils: PERRL Sinus: Normal Nasal: Clear rhinorrhea Mouth/Lips: Normal Mucous membranes: Dry Pharynx: Normal Neck: Normal - Respiratory Respiratory status: No respiratory distress - When I saw patient at 2220 patient was in no respiratory distress on Pap Chest status: Nontender Breath sounds: Decreased air movement Chest palpation: Normal - Cardiovascular Rhythm: Regular Heart sounds: Normal auscultation Murmur: No Friction rub: No Matt's crunch: No - Abdominal Inspection: Normal Distension: No distension Bowel sounds: Normal Tenderness: Nontender Organomegaly: No organomegaly - Back Back: Normal - Extremities General upper extremity: Normal inspection General lower extremity: Edema - +2 pitting stasis dermatitis to knees Course - Vital Signs Vital signs: Temp Pulse Resp BP Pulse Ox 98.0 F 18 147/100 H 94 07/06/19 20:24 07/07/19 00:01 07/07/19 00:01 07/07/19 00:01 - Laboratory Result Diagrams: 07/06/19 20:40 07/06/19 20:40 Laboratory results interpreted by me: 07/06/19 07/06/19 07/06/19 20:40 20:40 20:43 RDW 15.2 H Carbon Dioxide 31 H BUN 21 H Creatinine 1.34 H Est GFR (MDRD) Non-Af 55 L Glucose 116 H NT-Pro-B Natriuret Pep 6820 H - Diagnostic Test Radiology reviewed: Reports reviewed Critical Care Note - Critical Care Note Total time excluding time spent on procedures (mins): 90 Comments: I discussed this case with Dr. Bolanos fleet operations manager and he advises admission for his evaluation tomorrow I discussed this case with Dr.Paul Fong advised medical floor Discharge - Discharge Clinical Impression: COPD with exacerbation Chest pain Qualifiers: Chest pain type: unspecified Qualified Code(s): R07.9 - Chest pain, unspecified CHF (congestive heart failure) Qualifiers: Heart failure type: unspecified Heart failure chronicity: unspecified Qualified Code(s): I50.9 - Heart failure, unspecified Condition: Fair Disposition: ADMITTED INPATIENT Admitting Provider: Shania (Hospitalist) Unit Admitted: Medical Floor Additional Instructions: Transfer this patient to medical floor Referrals: JP MENDES MD [Primary Care Provider] - Follow up as needed
[2019-07-06 22:41] LABS: ALBUMIN 3.6 g/dL (3.5-5.0); ALKALINE PHOSPHATASE 115 U/L (38-126); ANION GAP 6 (5-19); ASPARTATE AMINO TRANSFERASE 42 U/L (17-59); BILIRUBIN,DIRECT 0.1 mg/dL (0.0-0.4); BLOOD UREA NITROGEN 21 mg/dL (7-20); CALCIUM 8.6 mg/dL (8.4-10.2); CARBON DIOXIDE 31 mmol/L (22-30); CHLORIDE 100 mmol/L (98-107); GLUCOSE 116 mg/dL (75-110); POTASSIUM 4.7 mmol/L (3.6-5.0); TOTAL PROTEIN 6.9 g/dL (6.3-8.2)
--- NOTE | 2019-07-06 23:03 | RADIOLOGY REPORT (SQ) ---
EXAM DESCRIPTION: AP portable radiograph of the chest CLINICAL HISTORY: 58 years Male, shortness of breath COMPARISON: Two views of the chest August 08, 2017 FINDINGS: Lungs: Lung volumes have decreased and there is been development of moderate pleural effusions and perihilar and lower lobe groundglass opacification as well as more focal consolidation in the left costophrenic angle. Central airways thickening is seen. The right pleural effusion may be loculated. Mediastinum: Heart size is enlarged and the mediastinum is widened. There is engorgement of central pulmonary vessels. Vascular calcifications are seen in the thoracic aorta. Bones: Unremarkable IMPRESSION: Interval reduction in lung volumes with development of multifocal opacification concerning for pneumonia. There is bilateral pleural effusions.
[2019-07-06] MEDS ORDERED: BUMETANIDE INJ/PF 1 MG/4 ML SDV IV ONE (23:30)
[2019-07-07] MEDS ORDERED: IPRATROPIUM/ALBUTEROL 0.5-2.5 MG/3 ML AMPUL NEB PRN (02:12)
[2019-07-07] MEDS ORDERED: RINGERS SOLUTION,LACTATED 1,000 ML IV PRN (02:12)
[2019-07-07 03:03] LABS: ARTERIAL BLOOD BASE EXCESS -0.1 mmol/L; ARTERIAL BLOOD H2CO3 1.65 mmol/L (1.05-1.35); ARTERIAL BLOOD HCO3 27.2 mmol/L (20-24); ARTERIAL BLOOD O2 SATURATION 97.4 % (94-98); ARTERIAL BLOOD PCO2 54.9 mmHg (35-45); ARTERIAL BLOOD PH 7.31 (7.35-7.45); ARTERIAL BLOOD PO2 107.6 mmHg (80-100); ARTERIAL BLOOD TOTAL CO2 28.9 mmol/L (23-27)
[2019-07-07 03:04] LABS: ARTERIAL BLOOD FIO2 40%
[2019-07-07 03:45] LABS: CREATINE KINASE MB 6.19 ng/mL (<4.55)
[2019-07-07 03:46] LABS: TROPONIN I < 0.012 ng/mL
[2019-07-07] MEDS ORDERED: CEFEPIME 1 GM/D5W RTU 0 GM/0 ML RTUPB IV ONE (04:55)
[2019-07-07 04:57] LABS: APPEARANCE,URINE CLEAR; BILIRUBIN,URINE NEGATIVE (NEGATIVE); COLOR,URINE STRAW; GLUCOSE, URINE NEGATIVE (NEGATIVE); KETONES,URINE NEGATIVE (NEGATIVE); LEUKOCYTE ESTERASE,URINE NEGATIVE (NEGATIVE); NITRITE,URINE NEGATIVE (NEGATIVE); PROTEIN,URINE NEGATIVE (NEGATIVE); URINE SPECIFIC GRAVITY 1.005; UROBILINOGEN,URINE NEGATIVE mg/dL (<2.0)
[2019-07-07] MEDS: HEPARIN SOD (PORCINE) 5,000 UNIT/ML 1 ML VIAL SUBCUT SCH ×3 (05:15→21:17)
[2019-07-07] MEDS ORDERED: CEFEPIME 2 GM/D5W RTU 2 GM/50 ML RTUPB IV ONE (05:15)
[2019-07-07] MEDS ORDERED: CEFEPIME 2 GM/D5W RTU 2 GM/50 ML RTUPB IV SCH (06:00)
--- NOTE | 2019-07-07 09:28 | RADIOLOGY REPORT (SQ) ---
EXAM DESCRIPTION: CT CHEST WITHOUT COMPLETED DATE/TIME: 07/07/2019 9:08 am REASON FOR STUDY: COPD COMPARISON: CT angio chest 08/08/2017 CT chest 09/06/2014 TECHNIQUE: CT scan performed of the chest without intravenous contrast. Images reviewed with lung, soft tissue and bone windows. Reconstructed coronal and sagittal MPR images reviewed. All images st ored on PACS. All CT scanners at this facility use dose modulation, iterative reconstruction, and/or weight based d osing when appropriate to reduce radiation dose to as low as reasonably achievable (ALARA). [facility]: Dose Right [facility]: CareDose [facility]: Dose Right [facility]: Teradose 4D [facility]: [employer]ox RADIATION DOSE: CT Rad equipment meets quality standard of care and radiation dose reduction techniq ues were employed. CTDIvol: 18.8 mGy. DLP: 768 mGy-cm. mGy. LIMITATIONS: No technical limitations. FINDINGS: LUNGS AND PLEURA: Small right pleural effusion layers dependently in the right hemithorax. There is dependent consolidation in the right upper lobe and right lower lobe, atelectasis versus pne umonia. Benign left pleural space fat present. No left pleural effusion. No focal left infiltrates. There are enlarged airspaces in the bilateral upper lobes from obstructive disease. HILAR AND MEDIASTINAL STRUCTURES: No identified masses or abnormal nodes. No obvious aneurysm. HEART AND VASCULAR STRUCTURES: No aneurysm. No pericardial effusion. UPPER ABDOMEN: Clips right upper quadrant post cholecystectomy THYROID AND OTHER SOFT TISSUES: No masses. No adenopathy. BONES: No significant finding. HARDWARE: None in the chest. OTHER: No other significant findings. IMPRESSION: Small right pleural effusion with probable dependent atelectasis in the right upper and lower lobe. TECHNICAL DOCUMENTATION: JOB ID: [id number] Quality ID # [id number]: Final reports with documentation of one or more dose reduction techniques (e.g., Au tomated exposure control, adjustment of the mA and/or kV according to patient size, use of iterative reconstruction technique) 2010 [employer]- All Rights Reserved Reading location - IP/workstation name: [email or web address]
[2019-07-07] MEDS: LEVOFLOXACIN 750 MG/D5W RTU 750 MG/150 ML RTUPB IV SCH (10:13)
[2019-07-07] MEDS ORDERED: (PENDING PHARMACY ID) (Pregabalin [Lyrica] 200 MG) PO SCH (12:30)
[2019-07-07] MEDS ORDERED: (PENDING PHARMACY ID) (Lurasidone Hcl [Latuda] 20 MG) PO SCH (12:30)
[2019-07-07] MEDS: METHYLPREDNISOLONE INJ 125 MG/2 ML SDV IV SCH ×2 (13:39→21:17)
[2019-07-07] MEDS: CLONAZEPAM 1 MG TABLET PO SCH ×2 (13:40→17:09)
[2019-07-07] MEDS: CEFEPIME HCL 2 GM in DEXTROSE 5%-WATER 50 ML IV SCH (17:10)
--- NOTE | 2019-07-07 20:54 | PDOC H&P ---
History of Present Illness Admission Date/PCP: 07/07/19 01:54 JP MENDES MD History of Present Illness: DAVIAN ROY is a 58 year old male,recalcitrant ,smoker he came to the em ergency room for evaluation of shortness of breath, CT of the chest was obtained without contrast, it demonstrated dependent consolidation in the right upper lobe and right lower lobe also found was enlarged airspace in the bilateral upper lobe from obstructive disease. The arterial blood gas on FiO2 40%, pH 7.31 PO2 107 (bicarbonate 27.2 PCO2 54.9. Patient required noninvasive positive pressure ventilation BiPAP in the emergency room.Patient is a chain smoker he also consume a lot of sodas every single day he has tremendous large abdomen, he does not exercise, very sedentary, lack of self-care Past Medical History Cardiac Medical History: Reports: Hyperlipidema Pulmonary Medical History: Reports: Chronic Obstructive Pulmonary Disease (COPD), Pneumonia Musculoskeltal Medical History: Reports: Arthritis Psychiatric Medical History: Reports: Depression Past Surgical History Past Surgical History: Reports: Appendectomy, Cholecystectomy, Herniorrhaphy Social History Lives with: Other - unknown at present Smoking Status: Current Every Day Smoker Cigarettes Packs Per Day: 1 Electronic Cigarette use?: No Number of Years Smokin Last Time Smoked: 07/06/19 Frequency of Alcohol Use: None Hx Recreational Drug Use: No Drugs: None Hx Prescription Drug Abuse: No Family History Family History: Reviewed & Not Pertinent Parental Family History Reviewed: Yes Children Family History Reviewed: Yes Sibling(s) Family History Reviewed.: Yes Medication/Allergy Home Medications: Clonazepam [Klonopin 1 mg Tablet] 1 mg PO TID 02/05/15 Lurasidone HCl [Latuda] 20 mg PO DAILY 02/05/15 Clonidine HCl [Catapres 0.1 mg Tablet] 1 tab PO QHS 07/07/19 Hydroxyzine Pamoate [Vistaril 50 mg Capsule] 1 tab PO BID 07/07/19 Pregabalin [Lyrica] 200 mg PO BID 07/07/19 Allergies/Adverse Reactions: adhesive [Adhesive] Allergy (Verified 08/08/17 11:53) pseudoephedrine HCl [From Sudafed] Allergy (Verified 08/08/17 11:53) Review of Systems Constitutional: ABSENT: chills, fever(s), headache(s), weight gain, weight loss Eyes: ABSENT: visual disturbances Ears: ABSENT: hearing changes Cardiovascular: ABSENT: chest pain, dyspnea on exertion, edema, orthropnea, palpitations Respiratory: PRESENT: dyspnea Gastrointestinal: ABSENT: abdominal pain, constipation, diarrhea, hematemesis, hematochezia, nausea, vomiting Genitourinary: ABSENT: dysuria, hematuria Musculoskeletal: ABSENT: joint swelling Integumentary: ABSENT: rash, wounds Neurological: ABSENT: abnormal gait, abnormal speech, confusion, dizziness, focal weakness, syncope Psychiatric: ABSENT: anxiety, depression, homidical ideation, suicidal ideation Endocrine: ABSENT: cold intolerance, heat intolerance, menstrual abnormalities, polydipsia, polyuria Hematologic/Lymphatic: ABSENT: easy bleeding, easy bruising, lymphadenopathy Physical Exam Vital Signs: Temp Pulse Resp BP Pulse Ox 97.5 F 85 20 149/120 H 92 07/07/19 19:29 07/07/19 19:29 07/07/19 19:29 07/07/19 19:29 07/07/19 19:29 Intake & Output 07/06/19 07/07/19 07/08/19 06:59 06:59 06:59 Intake Total 50 1262 Output Total 900 975 Balance -850 287 Weight 139.1 kg General appearance: PRESENT: obese, severe distress Head exam: PRESENT: atraumatic, normocephalic Eye exam: PRESENT: PERRLA Mouth exam: PRESENT: moist, tongue midline Neck exam: PRESENT: full ROM Respiratory exam: PRESENT: wheezes Cardiovascular exam: PRESENT: RRR, +S1, +S2 Pulses: PRESENT: normal dorsalis pedis pul, +2 pedal pulses bilateral Vascular exam: PRESENT: normal capillary refill GI/Abdominal exam: PRESENT: distended, normal bowel sounds, soft Rectal exam: PRESENT: deferred Neurological exam: PRESENT: alert, CN II-XII grossly intact Psychiatric exam: PRESENT: appropriate affect, normal mood Skin exam: PRESENT: dry, intact, warm Results Laboratory Results: 07/06/19 20:40 07/06/19 20:40 07/06/19 07/06/19 07/07/19 20:40 20:40 00:23 WBC 9.4 RBC 5.31 Hgb 14.5 Hct 44.3 MCV 84 MCH 27.2 MCHC 32.6 RDW 15.2 H Plt Count 195 Seg Neutrophils % 64.9 Carbonic Acid HCO3/H2CO3 Ratio ABG pH ABG pCO2 ABG pO2 ABG HCO3 ABG O2 Saturation ABG Base Excess FiO2 Sodium 137.3 Potassium 4.7 Chloride 100 Carbon Dioxide 31 H Anion Gap 6 BUN 21 H Creatinine 1.34 H Est GFR ( Amer) > 60 Glucose 116 H Calcium 8.6 Total Bilirubin 1.0 AST 42 Alkaline Phosphatase 115 Ammonia 15.6 Total Protein 6.9 Albumin 3.6 Urine Color Urine Appearance Urine pH Ur Specific [place] Urine Protein Urine Glucose (UA) Urine Ketones Urine Blood Urine Nitrite Ur Leukocyte Esterase 07/07/19 07/07/19 02:50 04:30 WBC RBC Hgb Hct MCV MCH MCHC RDW Plt Count Seg Neutrophils % Carbonic Acid 1.65 H HCO3/H2CO3 Ratio 16:1 ABG pH 7.31 L ABG pCO2 54.9 H ABG pO2 107.6 H ABG HCO3 27.2 H ABG O2 Saturation 97.4 ABG Base Excess -0.1 FiO2 40% Sodium Potassium Chloride Carbon Dioxide Anion Gap BUN Creatinine Est GFR ( Amer) Glucose Calcium Total Bilirubin AST Alkaline Phosphatase Ammonia Total Protein Albumin Urine Color STRAW Urine Appearance CLEAR Urine pH 5.0 Ur Specific [place] 1.005 Urine Protein NEGATIVE Urine Glucose (UA) NEGATIVE Urine Ketones NEGATIVE Urine Blood NEGATIVE Urine Nitrite NEGATIVE Ur Leukocyte Esterase NEGATIVE 07/06/19 07/06/19 07/07/19 20:43 20:43 03:01 Creatine Kinase 143 97 CK-MB (CK-2) Troponin I NT-Pro-B Natriuret Pep 6820 H 07/07/19 03:01 Creatine Kinase CK-MB (CK-2) 6.19 H Troponin I < 0.012 NT-Pro-B Natriuret Pep Impressions: Chest X-Ray 07/06/19 22:14 IMPRESSION: Interval reduction in lung volumes with development of multifocal opacification concerning for pneumonia. There is bilateral pleural effusions. Chest CT 07/07/19 00:00 IMPRESSION: Small right pleural effusion with probable dependent atelectasis in the right upper and lower lobe. Assessment & Plan - Diagnosis (1) Acute hypercapnic respiratory failure Is this a current diagnosis for this admission?: Yes Plan: Continue noninvasive positive pressure ventilation (2) COPD exacerbation Is this a current diagnosis for this admission?: Yes Plan: Start IV Solu-Medrol, bronchodilators (3) Pneumonia Qualifiers: Pneumonia type: due to unspecified organism Laterality: right Lung location: upper lobe of lung Qualified Code(s): J18.9 - Pneumonia, unspecified organism Is this a current diagnosis for this admission?: Yes Plan: Treat with antibiotic
[2019-07-07] MEDS: PREGABALIN 100 MG CAPSULE PO SCH (21:17)
[2019-07-07] MEDS: CLONIDINE HCL 0.1 MG TABLET PO SCH (21:17)
[2019-07-08] MEDS: CEFEPIME HCL 2 GM in DEXTROSE 5%-WATER 50 ML IV SCH ×2 (05:13→17:01)
[2019-07-08 05:48] LABS: HEMATOCRIT 45.9 % (37.9-51.0); HEMOGLOBIN 14.5 g/dL (13.5-17.0); MEAN CORPUSCULAR HEMOGLOBIN 26.5 pg (27.0-33.4); MEAN CORPUSCULAR HGB CONC 31.6 g/dL (32.0-36.0); MEAN CORPUSCULAR VOLUME 84 fl (80-97); PLATELET COUNT 200 10^3/uL (150-450); RED BLOOD COUNT 5.47 10^6/uL (4.35-5.55); WHITE BLOOD COUNT 9.7 10^3/uL (4.0-10.5)
[2019-07-08 06:12] LABS: ALBUMIN 3.8 g/dL (3.5-5.0); ALKALINE PHOSPHATASE 111 U/L (38-126); ANION GAP 9 (5-19); ASPARTATE AMINO TRANSFERASE 31 U/L (17-59); BILIRUBIN,DIRECT 0.2 mg/dL (0.0-0.4); BILIRUBIN,TOTAL 0.8 mg/dL (0.2-1.3); BLOOD UREA NITROGEN 23 mg/dL (7-20); CALCIUM 9.2 mg/dL (8.4-10.2); CARBON DIOXIDE 35 mmol/L (22-30); CHLORIDE 97 mmol/L (98-107); GLUCOSE 121 mg/dL (75-110); POTASSIUM 5.1 mmol/L (3.6-5.0); TOTAL PROTEIN 7.1 g/dL (6.3-8.2)
[2019-07-08] MEDS: HEPARIN SOD (PORCINE) 5,000 UNIT/ML 1 ML VIAL SUBCUT SCH ×3 (06:21→21:26)
[2019-07-08] MEDS: METHYLPREDNISOLONE INJ 125 MG/2 ML SDV IV SCH ×3 (06:27→21:26)
[2019-07-08] MEDS: CLONAZEPAM 1 MG TABLET PO SCH ×3 (09:25→17:01)
[2019-07-08] MEDS: LURASIDONE HCL 40 MG TABLET PO SCH (09:25)
[2019-07-08] MEDS: LEVOFLOXACIN 750 MG/D5W RTU 750 MG/150 ML RTUPB IV SCH (09:26)
[2019-07-08] MEDS: PREGABALIN 100 MG CAPSULE PO SCH ×2 (09:26→21:26)
--- NOTE | 2019-07-08 10:58 | PDOC PROGRESS REPORT ---
Subjective Progress Note for:: 07/08/19 Subjective:: Patient is admitted because of a pneumonia COPD and the respiratory distress Patient is not very nice when discussed with the patient's talking he said that no respiratory coming to the nebulizer but according to the nursing staff respiratory came and pretty much patients did not take nebulizer treatments Patient still wheezing still required a 5 to 6 L nasal cannula but very comfortable being in the bed in no acute distressed he is denied any chest pain No fever Reason For Visit: PNEUMONIA,ACUTE HYPOXEMIC RESPIRATORY FAILURE,COPD Physical Exam Vital Signs: Temp Pulse Resp BP Pulse Ox 97.6 F 83 20 108/46 L 92 07/08/19 08:37 07/08/19 08:37 07/08/19 08:37 07/08/19 08:37 07/08/19 08:37 Intake & Output 07/07/19 07/08/19 07/09/19 06:59 06:59 06:59 Intake Total 50 2032 Output Total 900 2150 Balance -850 -118 Weight 139.1 kg 136.4 kg General appearance: PRESENT: no acute distress, morbidly obese, well-developed, well-nourished Head exam: PRESENT: atraumatic, normocephalic Eye exam: PRESENT: conjunctiva pink, EOMI, PERRLA. ABSENT: scleral icterus Ear exam: PRESENT: normal external ear exam Mouth exam: PRESENT: moist, tongue midline Neck exam: PRESENT: full ROM. ABSENT: carotid bruit, JVD, lymphadenopathy, thyromegaly Respiratory exam: PRESENT: decreased breath sounds, wheezes Cardiovascular exam: PRESENT: RRR. ABSENT: diastolic murmur, rubs, systolic murmur Pulses: PRESENT: normal dorsalis pedis pul, +2 pedal pulses bilateral Vascular exam: PRESENT: normal capillary refill GI/Abdominal exam: PRESENT: normal bowel sounds, soft. ABSENT: distended, guarding, mass, organolmegaly, rebound, tenderness Rectal exam: PRESENT: deferred Extremities exam: PRESENT: pedal edema Neurological exam: PRESENT: alert, awake, oriented to person, oriented to place, oriented to time, oriented to situation, CN II-XII grossly intact. ABSENT: motor sensory deficit Psychiatric exam: PRESENT: appropriate affect, normal mood. ABSENT: homicidal ideation, suicidal ideation Skin exam: PRESENT: dry, intact, warm. ABSENT: cyanosis, rash Results Laboratory Results: 07/08/19 04:38 07/08/19 04:38 07/08/19 07/08/19 04:38 04:38 WBC 9.7 RBC 5.47 Hgb 14.5 Hct 45.9 MCV 84 MCH 26.5 L MCHC 31.6 L RDW 15.0 H Plt Count 200 Sodium 140.6 Potassium 5.1 H Chloride 97 L Carbon Dioxide 35 H Anion Gap 9 BUN 23 H Creatinine 0.93 Est GFR ( Amer) > 60 Glucose 121 H Calcium 9.2 Total Bilirubin 0.8 AST 31 Alkaline Phosphatase 111 Total Protein 7.1 Albumin 3.8 07/06/19 07/06/19 07/07/19 20:43 20:43 03:01 Creatine Kinase 143 97 CK-MB (CK-2) Troponin I NT-Pro-B Natriuret Pep 6820 H 07/07/19 03:01 Creatine Kinase CK-MB (CK-2) 6.19 H Troponin I < 0.012 NT-Pro-B Natriuret Pep Impressions: Chest X-Ray 07/06/19 22:14 IMPRESSION: Interval reduction in lung volumes with development of multifocal opacification concerning for pneumonia. There is bilateral pleural effusions. Chest CT 07/07/19 00:00 IMPRESSION: Small right pleural effusion with probable dependent atelectasis in the right upper and lower lobe. Assessment & Plan - Diagnosis (1) Acute hypercapnic respiratory failure Is this a current diagnosis for this admission?: Yes (2) CHF (congestive heart failure) Qualifiers: Heart failure type: unspecified Heart failure chronicity: unspecified Qualified Code(s): I50.9 - Heart failure, unspecified Is this a current diagnosis for this admission?: Yes (3) COPD exacerbation Is this a current diagnosis for this admission?: Yes - Time Time Spent with patient: 15-24 minutes Level of Care: IMCU Medications reviewed and adjusted accordingly: Yes Anticipated discharge: Other Within: Other - Plan Summary Plan Summary: We will get the chest x-ray and ABG Continues on nebulizer treatment every 4 hours Cut down the steroids once a get better We will check the blood work
--- NOTE | 2019-07-08 11:02 | CDI QUERY ---
CDI Query CDI Review: Dear Provider: To better reflect your patients severity of illness, morbidity, and resource utilization Please specify and document in the Progress Notes and Discharge Summary if you are monitoring / treating / evaluating any of the following conditions: Query Clinical indicators Morbid Obesity / BMI 41.9 Obesity / BMI 41.9 Unable to determine Other When known or suspected, please specify the type of pneumonia you are treating; Gram negative pneumonia Gram positive pneumonia Aspiration pneumonia Other Unable to determine Ht. 5 ft 11 in Wt. 136.4 kg / 300.08 lbs BMI 41.9 Patient is a chain smoker he also consume a lot of sodas every single day he has tremendous large abdomen, he does not exercise, very sedentary, lack of rizwan f-care CT of the chest was obtained without contrast, it demonstrated dependent consolidation in the right upper lobe and right lower lobe also found was enlarged airspace in the bilateral upper lobe from obstructive disease. (3) Pneumonia Qualifiers: Pneumonia type: due to unspecified organism Laterality: right Lung location: upper lobe of lung Qualified Code(s): J18.9 - Pneumonia, unspecified organism Is this a current diagnosis for this admission?: Yes Plan: Treat with antibiotic (per MAR:Levaquin RTU 750 mg Daily Maxipime Inj 2 Gm Q 12 hrs) The terms probable, suspected, likely, possible or still to be ruled out may be used if you are unable to determine the exact nature of a condition. Thank you for your consideration, Clinical Documentation Physician Advisors PAO De Leon RN, BSN RN [email or web address] Office [phone] Office [phone]
--- NOTE | 2019-07-08 11:33 | RADIOLOGY REPORT (SQ) ---
EXAM DESCRIPTION: CHEST SINGLE VIEW COMPLETED DATE/TIME: 07/08/2019 11:25 am REASON FOR STUDY: sob COMPARISON: 07/06/2019 NUMBER OF VIEWS: One view. TECHNIQUE: Single frontal radiographic image of the chest acquired. LIMITATIONS: None. FINDINGS: LUNGS AND PLEURA: Improved aeration in both lungs with residual airspace disease in the le ft lower lobe. MEDIASTINUM AND HEART: Stable heart size and mediastinal structures. BONY STRUCTURES: No acute findings. HARDWARE: None. OTHER: No other significant finding. IMPRESSION: Improving asymmetric edema or pneumonia. TECHNICAL DOCUMENTATION: JOB ID: [id number] Reading location - IP/workstation name: [email or web address]
[2019-07-08] MEDS: IPRATROPIUM/ALBUTEROL 0.5-2.5 MG/3 ML AMPUL NEB SCH ×4 (12:10→23:56)
[2019-07-08 12:20] LABS: ARTERIAL BLOOD BASE EXCESS 7.7 mmol/L; ARTERIAL BLOOD H2CO3 2.15 mmol/L (1.05-1.35); ARTERIAL BLOOD HCO3 36.5 mmol/L (20-24); ARTERIAL BLOOD O2 SATURATION 92.9 % (94-98); ARTERIAL BLOOD PH 7.33 (7.35-7.45); ARTERIAL BLOOD PO2 72.6 mmHg (80-100); ARTERIAL BLOOD TOTAL CO2 38.7 mmol/L (23-27)
[2019-07-08 12:22] LABS: ARTERIAL BLOOD FIO2 6L
[2019-07-08 12:23] LABS: ARTERIAL BLOOD PCO2 71.3 mmHg (35-45)
--- NOTE | 2019-07-08 13:45 | PDOC CONSULTATION ---
Consultation Consult Date: 07/08/19 Attending physician:: JP MENDES Provider Consulted: KIYA MARTINEZ Consult reason:: PNA/acute on chronic respiratory failure/obesity hypoventilation syndrome History of Present Illness Admission Date/PCP: 07/07/19 01:54 JP MENDES MD History of Present Illness: DAVIAN ROY is a 58 year old male, was admitted to the ED after 3 days increasing shortness of breath and nonproductive cough he denies any hemoptysis PPD status unknown chronic lung disease as a child or adolescent missed exposure large amounts of passive smoke as a child as well as an adult he himself was a chain smoker 2 to 3 packs/day but dog no recent travel extremely sedentary aware of any snoring restless sleep nocturia and daytime somnolence Past Medical History Cardiac Medical History: Reports: Hyperlipidema Pulmonary Medical History: Reports: Chronic Obstructive Pulmonary Disease (COPD), Pneumonia, Other - Obesity-hypoventilation Denies: Tuberculosis EENT Medical History: Reports: None Neurological Medical History: Denies: Seizures Endocrine Medical History: Reports: Diabetes Mellitus Type 2, Obesity GI Medical History: Denies: Cirrhosis, Ulcerative Colitis Musculoskeltal Medical History: Reports: Arthritis Psychiatric Medical History: Reports: Depression Hematology: Denies: Sickle Cell Disease Infectious Medical History: Denies: HIV Past Surgical History Past Surgical History: Reports: Appendectomy, Cholecystectomy, Herniorrhaphy Denies: Pacemaker Social History Information Source: Patient, [facility] Records Lives with: Other - unknown at present Smoking Status: Current Every Day Smoker Cigarettes Packs Per Day: 3 Number of Years Smokin Last Time Smoked: 07/06/19 Passive smoke exposure as: Both Frequency of Alcohol Use: None Hx Recreational Drug Use: No Drugs: None Hx Prescription Drug Abuse: No Do you have pets?: Yes Have you had any respiratory illnesses as a child?: No Have you been exposed to any sick contacts recently?: No Have you had any recent respiratory illnesses?: No Have you travelled outside of [place] in the past 12 months?: No Family History Parental Family History Reviewed: No Children Family History Reviewed: No Sibling(s) Family History Reviewed.: No Medication/Allergy Home Medications: Clonazepam [Klonopin 1 mg Tablet] 1 mg PO Q8 02/05/15 Lurasidone HCl [Latuda] 20 mg PO DAILY 02/05/15 Clonidine HCl [Catapres 0.1 mg Tablet] 0.1 mg PO QHS 07/07/19 Hydroxyzine HCl [Atarax 10 mg Tablet] 50 mg PO BID 07/07/19 Pregabalin [Lyrica] 200 mg PO Q12 07/07/19 Budesonide/Formoterol Fumarate [Symbicort HFA 160-4.5 mcg Inhaler 6 gm] 2 puff IH Q12 #1 inhaler 07/12/19 Albuterol Sulfate [Proair HFA Inhalation Aerosol 8.5 gm MDI] 2 puff IH Q4HP PRN 07/13/19 Prednisone [Deltasone 20 mg Tablet] 10 mg PO ASDIR PRN 07/13/19 Tiotropium [place] [Spiriva Respimat] 1 puff IH DAILY 07/13/19 Umeclidinium Brm/Vilanterol Tr [Anoro Ellipta 62.5-25 Mcg INH] 1 puff IH DAILY 07/13/19 Allergies/Adverse Reactions: adhesive [Adhesive] Allergy (Verified 07/12/19 23:31) pseudoephedrine HCl [From Sudafed] Allergy (Verified 07/12/19 23:31) Review of Systems All systems: reviewed and no additional remarkable complaints except as stated Physical Exam Vital Signs: Temp Pulse Resp BP Pulse Ox 97.5 F 87 19 123/93 H 91 L 07/08/19 11:26 07/08/19 12:10 07/08/19 12:10 07/08/19 11:26 07/08/19 12:10 Intake & Output 07/07/19 07/08/19 07/09/19 06:59 06:59 06:59 Intake Total 50 2032 500 Output Total 900 2150 Balance -850 -118 500 Weight 139.1 kg 136.4 kg General appearance: PRESENT: no acute distress, disheveled, morbidly obese, well-developed, well-nourished Head exam: PRESENT: atraumatic, normocephalic Eye exam: PRESENT: conjunctiva pale, EOMI. ABSENT: nystagmus Mouth exam: PRESENT: dry mucosa, neck supple, tongue midline Neck exam: ABSENT: carotid bruit, full ROM, JVD, lymphadenopathy, meningismus, tenderness, thyromegaly, tracheal deviation, tracheostomy, other Respiratory exam: PRESENT: prolonged expiratory phas, rhonchi, unlabored. ABSENT: chest wall tenderness, crackles, decreased breath sounds, retraction, stridor, tachypnea Cardiovascular exam: PRESENT: RRR, +S1, +S2. ABSENT: tachycardia Pulses: PRESENT: normal radial pulses GI/Abdominal exam: PRESENT: soft. ABSENT: guarding, mass, rebound, tenderness Extremities exam: ABSENT: calf tenderness, clubbing, joint swelling, tenderness Musculoskeletal exam: PRESENT: full ROM. ABSENT: deformity, dislocation Psychiatric exam: PRESENT: flat affect Skin exam: PRESENT: dry, warm Results Laboratory Results: 07/08/19 04:38 07/08/19 04:38 07/08/19 07/08/19 07/08/19 04:38 04:38 12:10 WBC 9.7 RBC 5.47 Hgb 14.5 Hct 45.9 MCV 84 MCH 26.5 L MCHC 31.6 L RDW 15.0 H Plt Count 200 Carbonic Acid 2.15 H HCO3/H2CO3 Ratio 16:1 ABG pH 7.33 L ABG pCO2 71.3 H* ABG pO2 72.6 L ABG HCO3 36.5 H ABG O2 Saturation 92.9 L ABG Base Excess 7.7 FiO2 6L Sodium 140.6 Potassium 5.1 H Chloride 97 L Carbon Dioxide 35 H Anion Gap 9 BUN 23 H Creatinine 0.93 Est GFR ( Amer) > 60 Glucose 121 H Calcium 9.2 Total Bilirubin 0.8 AST 31 Alkaline Phosphatase 111 Total Protein 7.1 Albumin 3.8 07/06/19 07/06/19 07/07/19 20:43 20:43 03:01 Creatine Kinase 143 97 CK-MB (CK-2) Troponin I NT-Pro-B Natriuret Pep 6820 H 07/07/19 03:01 Creatine Kinase CK-MB (CK-2) 6.19 H Troponin I < 0.012 NT-Pro-B Natriuret Pep Impressions: Chest CT 07/07/19 00:00 IMPRESSION: Small right pleural effusion with probable dependent atelectasis in the right upper and lower lobe. Chest X-Ray 07/08/19 00:00 IMPRESSION: Improving asymmetric edema or pneumonia. Assessment & Plan - Diagnosis (1) Obesity hypoventilation syndrome Is this a current diagnosis for this admission?: Yes Plan: NIPPV also requires patient may have obstructive sleep apnea (2) Acute hypercapnic respiratory failure Is this a current diagnosis for this admission?: Yes Plan: Noninvasive positive pressure ventilation will increase inspiratory pressure to 16 expiratory pressure 8 continuous pulse oximetry (3) CHF (congestive heart failure) Qualifiers: Heart failure type: unspecified Heart failure chronicity: acute on chronic Qualified Code(s): I50.9 - Heart failure, unspecified Is this a current diagnosis for this admission?: Yes Plan: CXR is improved to new diuresis (4) COPD with exacerbation Is this a current diagnosis for this admission?: Yes Plan: Generic Name Dose Route Start Last Admin Trade Name Freq PRN Reason Stop Dose Admin Methylprednisolone Sodium Succinate 125 mg 07/07/19 14:00 07/08/19 06:27 Solu-Medrol Inj/Pf 125 Mg/2 Ml Sdv IV 08/06/19 13:59 125 mg Q8 NANCI Albuterol/Ipratropium 3 ml 07/08/19 12:00 07/08/19 12:10 Duoneb 3 Ml Ampul NEB 08/06/19 02:11 3 ml RTQ4 NANCI Cefepime HCl 2 gm/ Dextrose 50 mls @ 100 mls/hr 07/07/19 18:00 07/08/19 05:43 IV 07/14/19 17:59 Infused Q12A NANCI Levofloxacin/Dextrose 750 mg in 150 mls @ 100 mls/hr 07/07/19 10:00 07/08/19 09:26 Levaquin Rtu 750 Mg/D5w 150 Ml Premix IV 07/14/19 09:59 100 mls/hr DAILY NANCI 100 mls/hr (5) Pneumonia Qualifiers: Pneumonia type: due to unspecified organism Laterality: right Lung location: upper lobe of lung Qualified Code(s): J18.9 - Pneumonia, unspecified organism Is this a current diagnosis for this admission?: Yes Plan: Process right-sided may be related to aspiration continue current antibiotic therapy (6) Tobacco abuse Is this a current diagnosis for this admission?: Yes Plan: Smoking should be discontinued immediately - Time Time Spent with patient: 55 Medications reviewed and adjusted accordingly: Yes
--- NOTE | 2019-07-08 14:22 | XCELERA REPORT ---
[address] [address] Transthoracic Echocardiogram Report Name: DAVIAN ROY Age: 58 yrs Gender: Male : 1960 Patient Status: Inpatient Patient Location: [address] [place], [place] [address] Study Date: 07/07/2019 09:28 AM Height: 71 in Weight: 310 lb BSA: 2.5 m2 Procedure: A two-dimensional transthoracic echocardiogram with color flow and Doppler was performed. Study Quality: Poor. POOR ENDOCARDIAL VISUALISATION AND POOR DOPPLER INTEROGATION. Reason For Study: ELEVATED BNP / CHF History: ELEVATED BNP / CHF. Ordering Physician: JP MENDES Performed By: Joanne Adams Interpretation Summary POOR ENDOCARDIAL VISUALISATION AND POOR DOPPLER INTEROGATION. The left ventricle is normal in size. There is normal left ventricular wall thickness. LV EF is 60% Left ventricular systolic function is normal. Doppler measurements suggest impaired left ventricular relaxation, which is associated with grade I/IV or mild diastolic dysfunction The left ventricular wall motion is normal. There is no thrombus. No ASD ,VSD, or PFO seen. The right ventricle is moderately dilated. The right ventricle is not well visualized secondary to technical limitations The right atrium is normal. The left atrial size is normal. There is no evidence of mitral valve prolapse. There is no mitral valve stenosis. There is no mitral regurgitation noted. There is no aortic valve stenosis No aortic regurgitation is present. There is no tricuspid stenosis. There is a mild amount of tricuspid regurgitation There is moderate pulmonary hypertension by echo RVSP is 53 mm of Hg , with RA mean of 10. The pulmonic valve is not well visualized. The aortic root is not well visualized. The inferior vena cava was not visualized There is no pericardial effusion. MMode/2D Measurements & Calculations RVDd: 2.1 cm LVIDd: 4.9 cm FS: 30.0 % Ao root diam: 2.7 cm IVSd: 0.99 cm LVIDs: 3.4 cm EDV(Teich): 111.0 ml Ao root area: 5.7 cm2 LVPWd: 1.0 cm ESV(Teich): 47.7 ml LA dimension: 3.0 cm EF(Teich): 57.1 % Doppler Measurements & Calculations MV E max wilda: MV P1/2t max wilda: Ao V2 max: LV V1 max P.0 cm/sec 92.3 cm/sec 159.8 cm/sec 2.5 mmHg MV A max wilda: MV P1/2t: 60.2 msec Ao max PG: LV V1 max: 113.5 cm/sec MVA(P1/2t): 3.7 cm2 10.2 mmHg 78.5 cm/sec MV E/A: 0.70 MV dec slope: 449.1 cm/sec2 MV dec time: 0.22 sec PA V2 max: TR max wilda: MV P1/2t-pr_phl: 62.7 cm/sec 327.9 cm/sec 60.2 msec PA max P.6 mmHg TR max P.0 mmHg Left Ventricle The left ventricle is normal in size. There is normal left ventricular wall thickness. LV EF is 60%. Left ventricular systolic function is normal. Doppler measurements suggest impaired left ventricular relaxation, which is associated with grade I/IV or mild diastolic dysfunction. The left ventricular wall motion is normal. There is no thrombus. No ASD ,VSD, or PFO seen. Right Ventricle The right ventricle is moderately dilated. The right ventricle is not well visualized secondary to technical limitations. Atria The right atrium is normal. The left atrial size is normal. Mitral Valve There is no evidence of mitral valve prolapse. There is no mitral valve stenosis. There is no mitral regurgitation noted. Aortic Valve There is no aortic valve stenosis. No aortic regurgitation is present. Tricuspid Valve There is no tricuspid stenosis. There is a mild amount of tricuspid regurgitation. There is moderate pulmonary hypertension by echo. RVSP is 53 mm of Hg , with RA mean of 10. Pulmonic Valve The pulmonic valve is not well visualized. Great Vessels The aortic root is not well visualized. The inferior vena cava was not visualized. Effusions There is no pericardial effusion. : JP MENDES Lakshmi
[2019-07-08] MEDS: CLONIDINE HCL 0.1 MG TABLET PO SCH (21:28)
[2019-07-09] MEDS: IPRATROPIUM/ALBUTEROL 0.5-2.5 MG/3 ML AMPUL NEB SCH ×5 (04:11→19:33)
[2019-07-09 06:33] LABS: HEMATOCRIT 43.1 % (37.9-51.0); HEMOGLOBIN 13.7 g/dL (13.5-17.0); MEAN CORPUSCULAR HEMOGLOBIN 26.6 pg (27.0-33.4); MEAN CORPUSCULAR HGB CONC 31.8 g/dL (32.0-36.0); MEAN CORPUSCULAR VOLUME 84 fl (80-97); PLATELET COUNT 193 10^3/uL (150-450); RED BLOOD COUNT 5.14 10^6/uL (4.35-5.55); RED CELL DISTRIBUTION WIDTH 14.9 % (11.5-14.0); WHITE BLOOD COUNT 10.6 10^3/uL (4.0-10.5)
[2019-07-09] MEDS: CEFEPIME HCL 2 GM in DEXTROSE 5%-WATER 50 ML IV SCH ×2 (06:34→17:30)
[2019-07-09] MEDS: HEPARIN SOD (PORCINE) 5,000 UNIT/ML 1 ML VIAL SUBCUT SCH ×3 (06:34→21:04)
[2019-07-09] MEDS: METHYLPREDNISOLONE INJ 125 MG/2 ML SDV IV SCH (06:35)
[2019-07-09 06:38] LABS: ARTERIAL BLOOD BASE EXCESS 9.1 mmol/L; ARTERIAL BLOOD H2CO3 1.97 mmol/L (1.05-1.35); ARTERIAL BLOOD O2 SATURATION 93.3 % (94-98); ARTERIAL BLOOD PCO2 65.4 mmHg (35-45); ARTERIAL BLOOD PH 7.37 (7.35-7.45); ARTERIAL BLOOD PO2 71.1 mmHg (80-100)
[2019-07-09 06:40] LABS: ARTERIAL BLOOD FIO2 40%
[2019-07-09 06:52] LABS: ALBUMIN 3.3 g/dL (3.5-5.0); ALKALINE PHOSPHATASE 82 U/L (38-126); ANION GAP 9 (5-19); ASPARTATE AMINO TRANSFERASE 30 U/L (17-59); BILIRUBIN,DIRECT 0.4 mg/dL (0.0-0.4); BILIRUBIN,TOTAL 0.6 mg/dL (0.2-1.3); BLOOD UREA NITROGEN 24 mg/dL (7-20); CALCIUM 8.6 mg/dL (8.4-10.2); CARBON DIOXIDE 36 mmol/L (22-30); CHLORIDE 96 mmol/L (98-107); GLUCOSE 140 mg/dL (75-110); POTASSIUM 4.6 mmol/L (3.6-5.0); TOTAL PROTEIN 6.6 g/dL (6.3-8.2)
--- NOTE | 2019-07-09 09:34 | PDOC PROGRESS REPORT ---
Subjective Progress Note for:: 07/09/19 Subjective:: Patient is currently still doing fair Patient still have wheezing bilaterally Patient seen by the pulmonary Patient's PCO2 is better Patient's echocardiogram shows the normal EF with moderate pulmonary hypertension's Patient's denied any chest pain Patient still have a significant cough on and off Reason For Visit: PNEUMONIA,ACUTE HYPOXEMIC RESPIRATORY FAILURE,COPD Physical Exam Vital Signs: Temp Pulse Resp BP Pulse Ox 97.4 F 81 16 138/84 H 98 07/09/19 07:15 07/09/19 07:15 07/09/19 07:15 07/09/19 07:15 07/09/19 07:15 Pulse Oximeter Continuous Start: 07/08/19 13:14 Freq: RTQ4 Status: Active Protocol: Document 07/09/19 04:11 CMI (Rec: 07/09/19 04:13 CMI [id number]) Pulse Oximetry Assessment Oxygen Saturation (92-100) 95 Oxygen Delivery Method Bi-pap Fraction of Inspired Oxygen (FIO2) 40 Equipment Usage Equipment in Use Continuous Pulse Oximeter 24 Hour Charge Charge Now Continuous SpO2 Machine # 3 Intake & Output 07/08/19 07/09/19 07/10/19 06:59 06:59 06:59 Intake Total 2032 3205 50 Output Total 2150 Balance -118 3205 50 Weight 136.4 kg 138.1 kg General appearance: PRESENT: no acute distress, well-developed, well-nourished Head exam: PRESENT: atraumatic, normocephalic Eye exam: PRESENT: conjunctiva pink, EOMI, PERRLA. ABSENT: scleral icterus Ear exam: PRESENT: normal external ear exam Mouth exam: PRESENT: moist, tongue midline Neck exam: PRESENT: full ROM. ABSENT: carotid bruit, JVD, lymphadenopathy, thyromegaly Respiratory exam: PRESENT: decreased breath sounds, wheezes Cardiovascular exam: PRESENT: RRR. ABSENT: diastolic murmur, rubs, systolic murmur Vascular exam: PRESENT: normal capillary refill GI/Abdominal exam: PRESENT: normal bowel sounds, soft. ABSENT: distended, guarding, mass, organolmegaly, rebound, tenderness Rectal exam: PRESENT: deferred Extremities exam: PRESENT: pedal edema Neurological exam: PRESENT: alert, awake, oriented to person, oriented to place, oriented to time, oriented to situation, CN II-XII grossly intact. ABSENT: motor sensory deficit Psychiatric exam: PRESENT: appropriate affect, normal mood. ABSENT: homicidal ideation, suicidal ideation Skin exam: PRESENT: dry, intact, warm. ABSENT: cyanosis, rash Results Laboratory Results: 07/09/19 05:35 07/09/19 05:35 07/08/19 07/09/19 07/09/19 12:10 05:35 05:35 WBC 10.6 H RBC 5.14 Hgb 13.7 Hct 43.1 MCV 84 MCH 26.6 L MCHC 31.8 L RDW 14.9 H Plt Count 193 Carbonic Acid 2.15 H HCO3/H2CO3 Ratio 16:1 ABG pH 7.33 L ABG pCO2 71.3 H* ABG pO2 72.6 L ABG HCO3 36.5 H ABG O2 Saturation 92.9 L ABG Base Excess 7.7 FiO2 6L Sodium 140.9 Potassium 4.6 Chloride 96 L Carbon Dioxide 36 H Anion Gap 9 BUN 24 H Creatinine 0.84 Est GFR ( Amer) > 60 Glucose 140 H Calcium 8.6 Total Bilirubin 0.6 AST 30 Alkaline Phosphatase 82 Total Protein 6.6 Albumin 3.3 L 07/09/19 06:26 WBC RBC Hgb Hct MCV MCH MCHC RDW Plt Count Carbonic Acid 1.97 H HCO3/H2CO3 Ratio 18:1 ABG pH 7.37 ABG pCO2 65.4 H ABG pO2 71.1 L ABG HCO3 37.0 H ABG O2 Saturation 93.3 L ABG Base Excess 9.1 FiO2 40% Sodium Potassium Chloride Carbon Dioxide Anion Gap BUN Creatinine Est GFR ( Amer) Glucose Calcium Total Bilirubin AST Alkaline Phosphatase Total Protein Albumin 07/06/19 07/06/19 07/07/19 20:43 20:43 03:01 Creatine Kinase 143 97 CK-MB (CK-2) Troponin I NT-Pro-B Natriuret Pep 6820 H 07/07/19 03:01 Creatine Kinase CK-MB (CK-2) 6.19 H Troponin I < 0.012 NT-Pro-B Natriuret Pep Impressions: Chest CT 07/07/19 00:00 IMPRESSION: Small right pleural effusion with probable dependent atelectasis in the right upper and lower lobe. Chest X-Ray 07/08/19 00:00 IMPRESSION: Improving asymmetric edema or pneumonia. Assessment & Plan - Diagnosis (1) Acute hypercapnic respiratory failure Is this a current diagnosis for this admission?: Yes Plan: Continues use of BiPAP (2) CHF (congestive heart failure) Qualifiers: Heart failure type: unspecified Heart failure chronicity: unspecified Qualified Code(s): I50.9 - Heart failure, unspecified Is this a current diagnosis for this admission?: Yes Plan: Echocardiogram with normal EF but still having some moderate pulmonary hypertension's may be week consider low-dose Lasix (3) COPD exacerbation Is this a current diagnosis for this admission?: Yes Plan: Continues on nebulizer treatments will reduce the IV steroids at the Pulmicort (4) Obesity hypoventilation syndrome Is this a current diagnosis for this admission?: Yes Plan: NIPPV also requires patient may have obstructive sleep apnea (5) Pneumonia Qualifiers: Pneumonia type: due to unspecified organism Laterality: right Lung location: upper lobe of lung Qualified Code(s): J18.9 - Pneumonia, unspecified organism Is this a current diagnosis for this admission?: Yes Plan: on IV antibiotic - Time Time Spent with patient: 15-24 minutes Level of Care: IMCU Medications reviewed and adjusted accordingly: Yes Anticipated discharge: Home Within: Other - Plan Summary Plan Summary: Discussed with the patient about echocardiogram reports and all the test reports and the plan continues to use the BiPAP continues use the IV antibiotic neb ulizer treatments
[2019-07-09] MEDS: LEVOFLOXACIN 750 MG/D5W RTU 750 MG/150 ML RTUPB IV SCH (10:32)
[2019-07-09] MEDS: FUROSEMIDE 20 MG TABLET PO SCH (10:33)
[2019-07-09] MEDS: CLONAZEPAM 1 MG TABLET PO SCH ×3 (10:33→17:30)
[2019-07-09] MEDS: PREGABALIN 100 MG CAPSULE PO SCH ×2 (10:33→21:04)
[2019-07-09] MEDS: LURASIDONE HCL 40 MG TABLET PO SCH (10:33)
[2019-07-09] MEDS ORDERED: BUDESONIDE NEB 0.5 MG/2 ML AMPUL NEB ONE (12:03)
[2019-07-09] MEDS: BUDESONIDE NEB 0.5 MG/2 ML AMPUL NEB SCH ×2 (12:04→19:33)
[2019-07-09] MEDS: METHYLPREDNISOLONE INJ 40 MG/1 ML SDV IV SCH ×2 (13:24→21:04)
[2019-07-09] MEDS ORDERED: METHYLPREDNISOLONE INJ 125 MG/2 ML SDV IV SCH (14:00)
[2019-07-09] MEDS: CLONIDINE HCL 0.1 MG TABLET PO SCH (21:04)
[2019-07-10] MEDS: IPRATROPIUM/ALBUTEROL 0.5-2.5 MG/3 ML AMPUL NEB SCH ×6 (00:15→20:33)
[2019-07-10 04:58] LABS: HEMATOCRIT 41.6 % (37.9-51.0); HEMOGLOBIN 13.7 g/dL (13.5-17.0); MEAN CORPUSCULAR HEMOGLOBIN 27.3 pg (27.0-33.4); MEAN CORPUSCULAR VOLUME 83 fl (80-97); PLATELET COUNT 183 10^3/uL (150-450); RED BLOOD COUNT 5.02 10^6/uL (4.35-5.55); WHITE BLOOD COUNT 10.5 10^3/uL (4.0-10.5)
[2019-07-10 05:14] LABS: ALBUMIN 3.1 g/dL (3.5-5.0); ANION GAP 5 (5-19); ASPARTATE AMINO TRANSFERASE 47 U/L (17-59); BILIRUBIN,DIRECT 0.4 mg/dL (0.0-0.4); BILIRUBIN,TOTAL 0.8 mg/dL (0.2-1.3); BLOOD UREA NITROGEN 22 mg/dL (7-20); CALCIUM 8.1 mg/dL (8.4-10.2); CARBON DIOXIDE 38 mmol/L (22-30); CHLORIDE 95 mmol/L (98-107); GLUCOSE 124 mg/dL (75-110); NEONATAL BILIRUBIN RESULT 0.4 mg/dL (0.1-1.1); POTASSIUM 4.6 mmol/L (3.6-5.0); TOTAL PROTEIN 6.2 g/dL (6.3-8.2)
[2019-07-10 05:15] LABS: ALKALINE PHOSPHATASE 58 U/L (38-126)
[2019-07-10] MEDS: HEPARIN SOD (PORCINE) 5,000 UNIT/ML 1 ML VIAL SUBCUT SCH ×3 (06:35→23:44)
[2019-07-10] MEDS: CEFEPIME HCL 2 GM in DEXTROSE 5%-WATER 50 ML IV SCH ×2 (06:36→17:44)
[2019-07-10] MEDS: METHYLPREDNISOLONE INJ 40 MG/1 ML SDV IV SCH (06:38)
[2019-07-10] MEDS: BUDESONIDE NEB 0.5 MG/2 ML AMPUL NEB SCH ×2 (08:38→20:33)
[2019-07-10] MEDS: FUROSEMIDE 20 MG TABLET PO SCH (09:27)
[2019-07-10] MEDS: LEVOFLOXACIN 750 MG/D5W RTU 750 MG/150 ML RTUPB IV SCH (09:27)
[2019-07-10] MEDS: PREGABALIN 100 MG CAPSULE PO SCH ×2 (09:27→23:44)
[2019-07-10] MEDS: CLONAZEPAM 1 MG TABLET PO SCH ×3 (09:27→17:44)
[2019-07-10] MEDS: LURASIDONE HCL 40 MG TABLET PO SCH (09:28)
[2019-07-10] MEDS: METHYLPREDNISOLONE INJ 125 MG/2 ML SDV IV SCH ×2 (13:47→23:45)
--- NOTE | 2019-07-10 20:42 | PDOC PROGRESS REPORT ---
Subjective Progress Note for:: 07/10/19 Subjective:: Patient seen by the bedside he feels better today still requiring intravenous Solu-Medrol, bronchodilators, he will need home oxygen on discharge from the hospital. My office was making arrangement outpatient for home oxygen before he was admitted to the hospital for evaluation and management of acute hypercapnic and hypoxemic respiratory failure due to COPD Reason For Visit: PNEUMONIA,ACUTE HYPOXEMIC RESPIRATORY FAILURE,COPD Physical Exam Vital Signs: Temp Pulse Resp BP Pulse Ox 98.1 F 87 16 135/66 H 93 07/10/19 19:43 07/10/19 19:43 07/10/19 19:43 07/10/19 19:43 07/10/19 19:43 Pulse Oximeter Continuous Start: 07/08/19 13:14 Freq: RTQ4 Status: Active Protocol: Document 07/10/19 12:24 SYLVIA (Rec: 07/10/19 12:34 SYLVIA [id number]) Pulse Oximetry Assessment Oxygen Saturation (92-100) 91 Oxygen Flow Rate (L/min) 5 Oxygen Delivery Method Nasal Cannula Fraction of Inspired Oxygen (FIO2) 40 Equipment Usage Equipment in Use Continuous SpO2 Machine # 3 Intake & Output 07/09/19 07/10/19 07/11/19 06:59 06:59 06:59 Intake Total 3205 1525 1371 Output Total 875 Balance 3205 1525 496 Weight 138.1 kg 137.2 kg General appearance: PRESENT: no acute distress Eye exam: PRESENT: PERRLA Respiratory exam: PRESENT: wheezes Cardiovascular exam: PRESENT: +S1, +S2 GI/Abdominal exam: PRESENT: soft Neurological exam: PRESENT: alert Results Laboratory Results: 07/10/19 04:34 07/10/19 04:34 07/10/19 07/10/19 04:34 04:34 WBC 10.5 RBC 5.02 Hgb 13.7 Hct 41.6 MCV 83 MCH 27.3 MCHC 33.0 RDW 15.0 H Plt Count 183 Sodium 137.6 Potassium 4.6 Chloride 95 L Carbon Dioxide 38 H Anion Gap 5 BUN 22 H Creatinine 0.74 Est GFR ( Amer) > 60 Glucose 124 H Calcium 8.1 L Total Bilirubin 0.8 AST 47 Alkaline Phosphatase 58 Total Protein 6.2 L Albumin 3.1 L 07/06/19 07/06/19 07/07/19 20:43 20:43 03:01 Creatine Kinase 143 97 CK-MB (CK-2) Troponin I NT-Pro-B Natriuret Pep 6820 H 07/07/19 03:01 Creatine Kinase CK-MB (CK-2) 6.19 H Troponin I < 0.012 NT-Pro-B Natriuret Pep Impressions: Chest CT 07/07/19 00:00 IMPRESSION: Small right pleural effusion with probable dependent atelectasis in the right upper and lower lobe. Chest X-Ray 07/08/19 00:00 IMPRESSION: Improving asymmetric edema or pneumonia. Assessment & Plan - Diagnosis (1) Acute hypercapnic respiratory failure Is this a current diagnosis for this admission?: Yes Plan: Continue present line of management (2) COPD exacerbation Is this a current diagnosis for this admission?: Yes Plan: Continue IV Solu-Medrol, bronchodilators (3) Pneumonia Qualifiers: Pneumonia type: due to unspecified organism Laterality: right Lung location: upper lobe of lung Qualified Code(s): J18.9 - Pneumonia, unspecified organism Is this a current diagnosis for this admission?: Yes Plan: Continue IV antibiotic (4) Morbid (severe) obesity due to excess calories Is this a current diagnosis for this admission?: Yes Plan: Patient needs therapeutic lifestyle change, weight loss dietary restriction regular sustained exercise on discharge from the hospital - Time Time Spent with patient: 35 or more minutes Level of Care: CU
[2019-07-10] MEDS: CLONIDINE HCL 0.1 MG TABLET PO SCH (23:44)
[2019-07-11] MEDS: IPRATROPIUM/ALBUTEROL 0.5-2.5 MG/3 ML AMPUL NEB SCH ×7 (00:39→23:49)
[2019-07-11] MEDS: HEPARIN SOD (PORCINE) 5,000 UNIT/ML 1 ML VIAL SUBCUT SCH ×3 (06:13→21:53)
[2019-07-11] MEDS: METHYLPREDNISOLONE INJ 125 MG/2 ML SDV IV SCH ×3 (06:14→21:53)
[2019-07-11] MEDS: CEFEPIME HCL 2 GM in DEXTROSE 5%-WATER 50 ML IV SCH ×2 (06:17→18:27)
[2019-07-11] MEDS: BUDESONIDE NEB 0.5 MG/2 ML AMPUL NEB SCH ×2 (08:20→19:51)
[2019-07-11] MEDS: LEVOFLOXACIN 750 MG/D5W RTU 750 MG/150 ML RTUPB IV SCH (09:55)
[2019-07-11] MEDS: PREGABALIN 100 MG CAPSULE PO SCH ×2 (09:55→21:54)
[2019-07-11] MEDS: CLONAZEPAM 1 MG TABLET PO SCH ×3 (09:55→18:27)
[2019-07-11] MEDS: FUROSEMIDE 20 MG TABLET PO SCH (09:55)
[2019-07-11] MEDS: LURASIDONE HCL 40 MG TABLET PO SCH (09:55)
--- NOTE | 2019-07-11 12:03 | CDI QUERY ---
CDI Query CDI Review: CDI Query CDI Review: Dear Provider: To better reflect your patients severity of illness, morbidity, and resource utilization Please specify and document in the Progress Notes and Discharge Summary if you are monitoring / treating / evaluating any of the following conditions: Query Clinical indicators When known or suspected, please specify the type of pneumonia you are treating; Aspiration pneumonia Gram negative pneumonia Gram positive pneumonia Other Unable to determine CT of the chest was obtained without contrast, it demonstrated dependent consolidation in the right upper lobe and right lower lobe also found was enlarged airspace in the bilateral upper lobe from obstructive disease. (3) Pneumonia Qualifiers: Pneumonia type: due to unspecified organism Laterality: right Lung location: upper lobe of lung Qualified Code(s): J18.9 - Pneumonia, unspecified organism Is this a current diagnosis for this admission?: Yes Plan: Treat with antibiotic (per MAR:Levaquin RTU 750 mg Daily Maxipime Inj 2 Gm Q 12 hrs) Pulmonary Consult Note Added: 5) Pneumonia Qualifiers: Pneumonia type: due to unspecified organism Laterality: right Lung location: upper lobe of lung Qualified Code(s): J18.9 - Pneumonia, unspecified organism Is this a current diagnosis for this admission?: Yes Plan: Process right-sided may be related to aspiration continue current antibiotic therapy The terms probable, suspected, likely, possible or still to be ruled out may be used if you are unable to determine the exact nature of a condition. Thank you for your consideration, Clinical Documentation Physician Advisors PAO De Leon RN, BSN RN Office [phone] Office [phone]
[2019-07-11] MEDS: CLONIDINE HCL 0.1 MG TABLET PO SCH (21:54)
[2019-07-11] MEDS ORDERED: ACETAMINOPHEN 325 MG TABLET PO PRN (22:43)
--- NOTE | 2019-07-11 22:53 | PDOC PROGRESS REPORT ---
Subjective Progress Note for:: 07/11/19 Subjective:: Patient seen today by the bedside he has no new complaints continue to make some progress Reason For Visit: PNEUMONIA,ACUTE HYPOXEMIC RESPIRATORY FAILURE,COPD Physical Exam Vital Signs: Temp Pulse Resp BP Pulse Ox 97.9 F 88 16 131/89 H 87 L 07/11/19 20:28 07/11/19 20:28 07/11/19 20:28 07/11/19 20:28 07/11/19 20:28 Pulse Oximeter Continuous Start: 07/08/19 13:14 Freq: RTQ4 Status: Active Protocol: Document 07/11/19 20:00 LRO (Rec: 07/11/19 22:08 LRO [id number]) Pulse Oximetry Assessment Oxygen Saturation (92-100) 92 Oxygen Flow Rate (L/min) 5 Oxygen Delivery Method Nasal Cannula Equipment Usage Equipment in Use Continuous SpO2 Machine # 3 Intake & Output 07/10/19 07/11/19 07/12/19 06:59 06:59 06:59 Intake Total 1525 1881 2012 Output Total 1775 970 Balance 9415 558 0214 Weight 137.2 kg 137.3 kg 137.3 kg General appearance: PRESENT: no acute distress Eye exam: PRESENT: PERRLA Respiratory exam: PRESENT: clear to auscultation stephanie Cardiovascular exam: PRESENT: +S1, +S2 GI/Abdominal exam: PRESENT: soft Neurological exam: PRESENT: alert Results Laboratory Results: 07/10/19 04:34 07/10/19 04:34 07/11/19 07:40 Sputum Gram Stain - Final 07/11/19 07:40 Sputum Sputum Culture - Final 07/06/19 07/06/19 07/07/19 20:43 20:43 03:01 Creatine Kinase 143 97 CK-MB (CK-2) Troponin I NT-Pro-B Natriuret Pep 6820 H 07/07/19 03:01 Creatine Kinase CK-MB (CK-2) 6.19 H Troponin I < 0.012 NT-Pro-B Natriuret Pep Impressions: Chest CT 07/07/19 00:00 IMPRESSION: Small right pleural effusion with probable dependent atelectasis in the right upper and lower lobe. Chest X-Ray 07/08/19 00:00 IMPRESSION: Improving asymmetric edema or pneumonia. Assessment & Plan - Diagnosis (1) Acute hypercapnic respiratory failure Is this a current diagnosis for this admission?: Yes (2) COPD exacerbation Is this a current diagnosis for this admission?: Yes Plan: Discontinue IV Solu-Medrol start p.o. prednisone (3) Pneumonia Qualifiers: Pneumonia type: due to unspecified organism Laterality: right Lung location: upper lobe of lung Qualified Code(s): J18.9 - Pneumonia, unspecified organism Is this a current diagnosis for this admission?: Yes (4) Morbid (severe) obesity due to excess calories Is this a current diagnosis for this admission?: Yes - Time Time Spent with patient: 25-34 minutes Level of Care: IMCU
[2019-07-12] MEDS: IPRATROPIUM/ALBUTEROL 0.5-2.5 MG/3 ML AMPUL NEB SCH ×2 (04:21→07:49)
[2019-07-12] MEDS: HEPARIN SOD (PORCINE) 5,000 UNIT/ML 1 ML VIAL SUBCUT SCH ×2 (05:15→13:59)
[2019-07-12] MEDS: CEFEPIME HCL 2 GM in DEXTROSE 5%-WATER 50 ML IV SCH ×2 (05:16→17:38)
[2019-07-12] MEDS: BUDESONIDE NEB 0.5 MG/2 ML AMPUL NEB SCH (07:49)
[2019-07-12] MEDS ORDERED: PREDNISONE 20 MG TABLET PO SCH (10:00)
[2019-07-12] MEDS: LEVOFLOXACIN 750 MG/D5W RTU 750 MG/150 ML RTUPB IV SCH (11:04)
[2019-07-12] MEDS: LURASIDONE HCL 40 MG TABLET PO SCH (11:04)
[2019-07-12] MEDS: PREGABALIN 100 MG CAPSULE PO SCH (11:05)
[2019-07-12] MEDS: CLONAZEPAM 1 MG TABLET PO SCH ×3 (11:05→17:38)
[2019-07-12] MEDS: FUROSEMIDE 20 MG TABLET PO SCH (11:06)
[2019-07-12] MEDS ORDERED: IPRATROPIUM/ALBUTEROL 0.5-2.5 MG/3 ML AMPUL NEB PRN (11:21)
[2019-07-12 14:21] VITALS: BP 146/97
--- NOTE | 2019-07-12 14:23 | PDOC DISCHARGE SUMMARY ---
Impression - Admit/DC Date/PCP Admission Date/Primary Care Provider: 07/07/19 01:54 JP MENDES MD Discharge Date: 07/12/19 - Discharge Diagnosis (1) Acute respiratory failure with hypoxia and hypercapnia Is this a current diagnosis for this admission?: Yes (2) COPD exacerbation Is this a current diagnosis for this admission?: Yes (3) Pneumonia Is this a current diagnosis for this admission?: Yes (4) Morbid (severe) obesity due to excess calories Is this a current diagnosis for this admission?: Yes - Additional Information Discharge Diet: Cardiac Discharge Activity: Activity As Tolerated, Balance Activity w/Rest, Weigh Daily Referrals: JP MENDES MD [Primary Care Provider] - 07/21/19 1:30 pm Prescriptions: RX: Prednisone [Deltasone 20 mg Tablet] 10 mg PO DAILY #28 tablet Tiotropium [place] [Spiriva Respimat] 4 gm IH DAILY #1 mist.inhal Budesonide/Formoterol Fumarate [Symbicort Hfa 160-4.5 Mcg Inhaler 6 gm] 2 puff IH Q12 #1 inhaler Home Medications: RX: Clonazepam [Klonopin 1 mg Tablet] 1 mg PO Q8HP PRN 02/05/15 RX: Lurasidone HCl [Latuda] 20 mg PO DAILY 02/05/15 RX: Clonidine HCl [Catapres 0.1 mg Tablet] 0.1 mg PO QHS 07/07/19 RX: Hydroxyzine HCl [Atarax 10 mg Tablet] 50 mg PO BID 07/07/19 RX: Pregabalin [Lyrica] 200 mg PO Q12 07/07/19 Budesonide/Formoterol Fumarate [Symbicort Hfa 160-4.5 Mcg Inhaler 6 gm] 2 puff IH Q12 #1 inhaler 07/12/19 RX: Prednisone [Deltasone 20 mg Tablet] 10 mg PO DAILY #28 tablet 07/12/19 Tiotropium [place] [Spiriva Respimat] 4 gm IH DAILY #1 mist.inhal 07/12/19 History of Present Illiness History of Present Illness: DAVIAN ROY is a 58 year old male,recalcitrant ,smoker he came to the emergency room for evaluation of shortness of breath, CT of the chest was obtained without contrast, it demonstrated dependent consolidation in the right upper lobe and right lower lobe also found was enlarged airspace in the stephanie ateral upper lobe from obstructive disease. The arterial blood gas on FiO2 40%, pH 7.31 PO2 107 (bicarbonate 27.2 PCO2 54.9. Patient required noninvasive positive pressure ventilation BiPAP in the emergency room.Patient is a chain smoker he also consume a lot of sodas every single day he has tremendous large abdomen, he does not exercise, very sedentary, lack of self-care Hospital Course Hospital Course: Patient was admitted for the management of acute hypercapnic and hypoxemic respiratory failure due to chronic obstructive lung disease and pneumonia. Patient is a heavy smoker he smokes up to 2 to 3 packs a day of cigarettes and he drinks a lot of soda. He required noninvasive positive pressure ventilation in the hospital. He was treated with IV Solu-Medrol, antibiotic, bronchodilators, patient is much improved compared to admission status. He will require oxygen on discharge discharge planning is making arrangement for home oxygen. Patient was counseled on smoking cessation but he seems not to be particularly interested in smoking cessation. He probably has sleep apnea he will need outpatient sleep study to confirm this. Physical Exam Vital Signs: Temp Pulse Resp BP Pulse Ox 98.0 F 86 14 129/86 H 88 L 07/12/19 14:10 07/12/19 14:10 07/12/19 14:10 07/12/19 14:10 07/12/19 14:10 Pulse Oximeter Continuous Start: 07/08/19 13:14 Freq: RTQ4 Status: Active Protocol: Document 07/12/19 11:30 [facility] (Rec: 07/12/19 11:31 [facility] [id number]) Pulse Oximetry Assessment Oxygen Saturation (92-100) 88 Oxygen Delivery Method Bi-pap Fraction of Inspired Oxygen (FIO2) 35 Equipment Usage Equipment in Use Continuous SpO2 Machine # 3 Intake & Output 07/11/19 07/12/19 07/13/19 06:59 06:59 06:59 Intake Total 1881 2657 150 Output Total 1775 1770 Balance 106 887 150 Weight 137.3 kg 138.1 kg General appearance: PRESENT: no acute distress Eye exam: PRESENT: PERRLA Respiratory exam: PRESENT: clear to auscultation stephanie Cardiovascular exam: PRESENT: +S1, +S2 GI/Abdominal exam: PRESENT: soft Neurological exam: PRESENT: alert Results Laboratory Results: WBC 10.5 10^3/uL (4.0-10.5) 07/10/19 04:34 RBC 5.02 10^6/uL (4.35-5.55) 07/10/19 04:34 Hgb 13.7 g/dL (13.5-17.0) 07/10/19 04:34 Hct 41.6 % (37.9-51.0) 07/10/19 04:34 MCV 83 fl (80-97) 07/10/19 04:34 MCH 27.3 pg (27.0-33.4) 07/10/19 04:34 MCHC 33.0 g/dL (32.0-36.0) 07/10/19 04:34 RDW 15.0 % (11.5-14.0) H 07/10/19 04:34 Plt Count 183 10^3/uL (150-450) 07/10/19 04:34 Lymph % (Auto) 20.3 % (13-45) 07/06/19 20:40 [place] % (Auto) 12.2 % (3-13) 07/06/19 20:40 Eos % (Auto) 1.8 % (0-6) 07/06/19 20:40 Baso % (Auto) 0.8 % (0-2) 07/06/19 20:40 Absolute Neuts (auto) 6.1 10^3/uL (1.7-8.2) 07/06/19 20:40 Absolute Lymphs (auto) 1.9 10^3/uL (0.5-4.7) 07/06/19 20:40 Absolute Monos (auto) 1.1 10^3/uL (0.1-1.4) 07/06/19 20:40 Absolute Eos (auto) 0.2 10^3/uL (0.0-0.6) 07/06/19 20:40 Absolute Basos (auto) 0.1 10^3/uL (0.0-0.2) 07/06/19 20:40 Seg Neutrophils % 64.9 % (42-78) 07/06/19 20:40 Carbonic Acid 1.97 mmol/L (1.05-1.35) H 07/09/19 06:26 HCO3/H2CO3 Ratio 18:1 07/09/19 06:26 ABG pH 7.37 (7.35-7.45) 07/09/19 06:26 ABG pCO2 65.4 mmHg (35-45) H 07/09/19 06:26 ABG pO2 71.1 mmHg (80-100) L 07/09/19 06:26 ABG HCO3 37.0 mmol/L (20-24) H 07/09/19 06:26 ABG Total CO2 39.0 mmol/L (23-27) H 07/09/19 06:26 ABG O2 Saturation 93.3 % (94-98) L 07/09/19 06:26 ABG Base Excess 9.1 mmol/L 07/09/19 06:26 FiO2 40% 07/09/19 06:26 Sodium 137.6 mmol/L (137-145) 07/10/19 04:34 Potassium 4.6 mmol/L (3.6-5.0) 07/10/19 04:34 Chloride 95 mmol/L (98-107) L 07/10/19 04:34 Carbon Dioxide 38 mmol/L (22-30) H 07/10/19 04:34 Anion Gap 5 (5-19) 07/10/19 04:34 BUN 22 mg/dL (7-20) H 07/10/19 04:34 Creatinine 0.74 mg/dL (0.52-1.25) 07/10/19 04:34 Est GFR ( Amer) > 60 (>60) 07/10/19 04:34 Est GFR (MDRD) Non-Af > 60 (>60) 07/10/19 04:34 Glucose 124 mg/dL (75-110) H 07/10/19 04:34 Hemoglobin A1c % 6.2 % (4.7-6.0) H 07/08/19 04:38 Calcium 8.1 mg/dL (8.4-10.2) L 07/10/19 04:34 Total Bilirubin 0.8 mg/dL (0.2-1.3) 07/10/19 04:34 Direct Bilirubin 0.4 mg/dL (0.0-0.4) 07/10/19 04:34 Neonat Total Bilirubin 0.4 mg/dL (0.1-1.1) 07/10/19 04:34 Neonat Direct Bilirubin 0.0 mg/dL (0.0-0.3) 07/10/19 04:34 Neonat Indirect Bili 0.4 mg/dL (0.0-1.1) 07/10/19 04:34 AST 47 U/L (17-59) 07/10/19 04:34 ALT 33 U/L (<50) 07/10/19 04:34 Alkaline Phosphatase 58 U/L (38-126) 07/10/19 04:34 Ammonia 15.6 umol/L (9-33) 07/07/19 00:23 Creatine Kinase 97 U/L (55-170) 07/07/19 03:01 CK-MB (CK-2) 6.19 ng/mL (<4.55) H 07/07/19 03:01 Troponin I < 0.012 ng/mL 07/07/19 03:01 NT-Pro-B Natriuret Pep 6820 pg/mL (<125) H 07/06/19 20:43 Total Protein 6.2 g/dL (6.3-8.2) L 07/10/19 04:34 Albumin 3.1 g/dL (3.5-5.0) L 07/10/19 04:34 Urine Color STRAW 07/07/19 04:30 Urine Appearance CLEAR 07/07/19 04:30 Urine pH 5.0 (5.0-9.0) 07/07/19 04:30 Ur Specific Halls 1.005 07/07/19 04:30 Urine Protein NEGATIVE mg/dL (NEGATIVE) 07/07/19 04:30 Urine Glucose (UA) NEGATIVE mg/dL (NEGATIVE) 07/07/19 04:30 Urine Ketones NEGATIVE mg/dL (NEGATIVE) 07/07/19 04:30 Urine Blood NEGATIVE (NEGATIVE) 07/07/19 04:30 Urine Nitrite NEGATIVE (NEGATIVE) 07/07/19 04:30 Urine Bilirubin NEGATIVE (NEGATIVE) 07/07/19 04:30 Urine Urobilinogen NEGATIVE mg/dL (<2.0) 07/07/19 04:30 Ur Leukocyte Esterase NEGATIVE (NEGATIVE) 07/07/19 04:30 U Hyaline Cast (Auto) 1 /LPF 07/07/19 04:30 Urine Mucus (Auto) RARE /LPF 07/07/19 04:30 Urine Ascorbic Acid NEGATIVE (NEGATIVE) 07/07/19 04:30 07/06/19 07/07/19 20:43 03:01 CK-MB (CK-2) 6.19 H Troponin I < 0.012 NT-Pro-B Natriuret Pep 6820 H Impressions: Chest X-Ray 07/06/19 22:14 IMPRESSION: Interval reduction in lung volumes with development of multifocal opacification concerning for pneumonia. There is bilateral pleural effusions. Chest CT 07/07/19 00:00 IMPRESSION: Small right pleural effusion with probable dependent atelectasis in the right upper and lower lobe. Chest X-Ray 07/08/19 00:00 IMPRESSION: Improving asymmetric edema or pneumonia. Stroke Is this a Stroke Patient?: No Acute Heart Failure - Is this a Heart Failure Patient?: No
== END 2019-07-12 18:32 | disposition home health service (06) | DRG 193 ==
LOC: ER 20:13 → EH 07-07 01:54 → 3N 07-07 03:34 → 3W 07-08 05:53
PROVIDERS: ADMIT Internal Medicine; ATTEND Internal Medicine
PROC: 5A09557 Assistance with Respiratory Ventilation, Greater than 96 Consecutive Hours, Continuous Positive Airway Pressure (ICD-10-PCS; principal; 2019-07-07)
DX: J18.9 Pneumonia, unspecified organism (principal); J96.01 Acute respiratory failure with hypoxia; J96.02 Acute respiratory failure with hypercapnia; J44.0 Chronic obstructive pulmonary disease with (acute) lower respiratory infection; J44.1 Chronic obstructive pulmonary disease with (acute) exacerbation; E66.2 Morbid (severe) obesity with alveolar hypoventilation; E78.5 Hyperlipidemia, unspecified; E11.9 Type 2 diabetes mellitus without complications; F32.9 Major depressive disorder, single episode, unspecified; I50.9 Heart failure, unspecified; I27.20 Pulmonary hypertension, unspecified; E78.00 Pure hypercholesterolemia, unspecified; F17.210 Nicotine dependence, cigarettes, uncomplicated; Z79.899 Other long term (current) drug therapy; Z91.048 Other nonmedicinal substance allergy status; Z88.8 Allergy status to other drugs, medicaments and biological substances
CPT/HCPCS: 36415; 36600; 71045; 71250; 80053; 81001; 82140; 82550; 82553; 82803; 83036; 83880; 84484; 85025; 85027; 87040; 87086; 87205; 93005; 93010; 93306; 94640; 94660; 94762; 96374; 99291; 99292; J0692; J1644; J1956; J2920; J2930; J3490; J7060; J7120; J7512; J7620

== ENCOUNTER 2019-07-12 22:40 | Inpatient (IN) | payer MEDICAID ==
[2019-07-12] MEDS ORDERED: IPRATROPIUM/ALBUTEROL 0.5-2.5 MG/3 ML AMPUL NEB ONE (23:05)
[2019-07-12] MEDS ORDERED: FUROSEMIDE INJ/PF 40 MG/4 ML SDV IV ONE (23:06)
[2019-07-12 23:13] LABS: VENOUS BLOOD BASE EXCESS 8.3 mmol/L; VENOUS BLOOD PCO2 56.6 mmHg (35-63); VENOUS BLOOD PH 7.41 (7.30-7.42)
--- NOTE | 2019-07-12 23:14 | ER Document Report ---
ED General - General Chief Complaint: Shortness Of Breath Stated Complaint: SHORTNESS OF BREATH Time Seen by Provider: 07/12/19 22:41 Primary Care Provider: JP MENDES MD [Primary Care Provider] - Follow up as needed Notes: 58-year-old male brought to the emergency department via EMS for worsening shortness of breath. Patient was admitted to the hospital on 05 July for shortness of breath, pneumonia and COPD and CHF. He was discharged approximately 5 hours ago. Since being discharged the patient has smoked 3 cigarettes and has become increasingly short of breath. Patient feels like the oxygen machine he has at home is not as strong as the one he had in the hospital. Patient is typically on 2 L via nasal cannula, states that he feels like he has had to use it more than that. Patient was hypoxic on 2 L via nasal cannula for EMS, they did give him 2 g of magnesium, 2 DuoNeb breathing treatmen ts and 125 mg of Solu-Medrol, his oxygenation has improved. Patient admits productive cough, states it has not worsened since discharge. Complains of swollen legs that he states have not worsened since discharge. Denies any chest pain. Denies having been tested for COVID19. TRAVEL OUTSIDE OF THE [place] IN LAST 30 DAYS: No - Related Data Allergies/Adverse Reactions: adhesive [Adhesive] Allergy (Verified 07/12/19 23:31) pseudoephedrine HCl [From Sudafed] Allergy (Verified 07/12/19 23:31) Past Medical History - General Information source: Patient, Emergency Med Personnel - Social History Smoking Status: Current Every Day Smoker Frequency of alcohol use: None Drug Abuse: None Family History: Reviewed & Not Pertinent - Past Medical History Cardiac Medical History: Reports: Hx Hypercholesterolemia Pulmonary Medical History: Reports: Hx COPD, Hx Pneumonia Denies: Hx Tuberculosis Neurological Medical History: Denies: Hx Seizures Endocrine Medical History: Reports: Hx Diabetes Mellitus Type 2 Renal/ Medical History: Denies: Hx Peritoneal Dialysis GI Medical History: Denies: Hx Cirrhosis, Hx Ulcerative Colitis Musculoskeletal Medical History: Reports Hx Arthritis, Reports Hx Muscle Weakness, Reports Hx Musculoskeletal Deformity, Reports Hx Musculoskeletal Trauma Psychiatric Medical History: Reports: Hx Anxiety, Hx Depression Infectious Medical History: Denies: Hx HIV Past Surgical History: Reports: Hx Abdominal Surgery - hernia repair, Hx Appendectomy, Hx Cholecystectomy, Hx Herniorrhaphy. Denies: Hx Pacemaker - Immunizations Immunizations up to date: Yes Hx Diphtheria, Pertussis, Tetanus Vaccination: Yes Review of Systems - Review of Systems Constitutional: See HPI, Malaise, Weakness. denies: Fever EENT: No symptoms reported Cardiovascular: See HPI, Edema. denies: Chest pain Respiratory: See HPI, Cough, Short of breath, Wheezing Gastrointestinal: No symptoms reported Musculoskeletal: See HPI, Leg swelling, Ankle swelling Neurological/Psychological: No symptoms reported -: Yes All other systems reviewed and negative Physical Exam - Vital signs Vitals: Resp 17 07/12/19 22:49 - Notes Notes: GENERAL: Alert, interacts well. Appears moderately short of breath, morbidly obese. HEAD: Normocephalic, atraumatic EYES: Pupils equal, round and reactive to light, extraocular movements intact. ENT: Oral mucosa moist, tongue midline. NECK: Full range of motion, supple, trachea midline. LUNGS: Poor air movement, some accessory muscle use, mild inspiratory rales and, mild expiratory wheezing, rhonchi in the left upper lobe. HEART: Regular rate and rhythm, no murmurs, gallops, rubs. ABDOMEN: Soft, nontender, nondistended, bowel sounds present in all 4 quadrants. EXTREMITIES: Moves all 4 extremities spontaneously, 2+ pitting edema to the level of the knee bilaterally, radial and dorsalis pedis pulses 2/4 bilaterally. No cyanosis. NEUROLOGICAL: Alert and oriented x3, normal speech. PSYCH: Normal mood, normal affect. SKIN: Warm, Dry. Course - Re-evaluation Re-evalutation: 07/13/19 00:26 CBC shows leukocytosis that has increased to 11.1 compared to 10.5 two days ago, venous blood gas grossly unremarkable, shows some chronic elevation in bicarb, CMP does show elevated lactic acid 2.7, indeterminate troponin at 0.035, proBNP remains elevated 2880 although this is improved from initial visit, flu swabs are negative, blood cultures are pending, chest x-ray does show improved aeration. Despite the fact that many of the patient's laboratory indices are improved to the patient still clinically where looks worse, after 3 breathing treatments patient continues to have increased use of accessory muscles of respiration, continues to have expiratory wheezing, is now requiring 3 L via nasal cannula to maintain 91% oxygen saturation compared to his usual 2 L that he was discharged on. Discussed with Dr. Mendes, agrees to admit the patient to the hospital for hypoxia and indeterminate troponin. - Vital Signs Vital signs: Temp Pulse Resp BP Pulse Ox 18 123/112 H 88 L 07/12/19 23:32 07/12/19 23:32 07/12/19 23:32 - Laboratory Result Diagrams: 07/12/19 22:48 07/12/19 22:48 Laboratory results interpreted by me: 07/12/19 07/12/19 07/12/19 22:48 22:48 22:48 WBC 11.1 H MCH 26.2 L MCHC 31.4 L RDW 15.1 H Seg Neuts % (Manual) 87 H Lymphocytes % (Manual) 9 L Abs Neuts (Manual) 9.7 H VBG HCO3 Sodium 136.6 L Chloride 95 L Carbon Dioxide 36 H BUN 33 H Glucose 174 H Lactic Acid Calcium 8.1 L ALT 57 H NT-Pro-B Natriuret Pep 2880 H Albumin 3.3 L 07/12/19 07/12/19 22:48 22:48 WBC MCH MCHC RDW Seg Neuts % (Manual) Lymphocytes % (Manual) Abs Neuts (Manual) VBG HCO3 35.0 H Sodium Chloride Carbon Dioxide BUN Glucose Lactic Acid 2.7 H Calcium ALT NT-Pro-B Natriuret Pep Albumin - EKG Interpretation by Me Additional EKG results interpreted by me: 07/13/19 00:27 EKG shows sinus rhythm at a rate of 94, left anterior hemiblock, no ST segment elevations or depressions, there are T wave inversions noted in lead II, V2 through V4 and T wave flattening in V5 and V6 per my interpretation. Discharge - Discharge Clinical Impression: COPD with exacerbation, Obesity hypoventilation syndrome, Morbid (severe) obesity due to excess calories, COVID-19 testing CHF (congestive heart failure) Qualifiers: Heart failure type: unspecified Heart failure chronicity: acute on chronic Qualified Code(s): I50.9 - Heart failure, unspecified Condition: Fair Disposition: ADMITTED INPATIENT Admitting Provider: Radha Unit Admitted: Telemetry Referrals: JP MENDES MD [Primary Care Provider] - Follow up as needed
[2019-07-12 23:25] LABS: ALBUMIN 3.3 g/dL (3.5-5.0); ALKALINE PHOSPHATASE 78 U/L (38-126); ANION GAP 6 (5-19); ASPARTATE AMINO TRANSFERASE 59 U/L (17-59); BILIRUBIN,DIRECT 0.3 mg/dL (0.0-0.4); BILIRUBIN,TOTAL 0.7 mg/dL (0.2-1.3); BLOOD UREA NITROGEN 33 mg/dL (7-20); CALCIUM 8.1 mg/dL (8.4-10.2); CARBON DIOXIDE 36 mmol/L (22-30); CHLORIDE 95 mmol/L (98-107); GLUCOSE 174 mg/dL (75-110); POTASSIUM 3.9 mmol/L (3.6-5.0); TOTAL PROTEIN 6.4 g/dL (6.3-8.2)
[2019-07-12 23:28] LABS: INTERNATIONAL RATION (INR) 1.11; PROTHROMBIN TIME 14.4 SEC (11.4-15.4)
[2019-07-12 23:35] LABS: HEMATOCRIT 44.4 % (37.9-51.0); MEAN CORPUSCULAR HEMOGLOBIN 26.2 pg (27.0-33.4); MEAN CORPUSCULAR HGB CONC 31.4 g/dL (32.0-36.0); MEAN CORPUSCULAR VOLUME 83 fl (80-97); PLATELET COUNT 196 10^3/uL (150-450); RED BLOOD COUNT 5.33 10^6/uL (4.35-5.55); RED CELL DISTRIBUTION WIDTH 15.1 % (11.5-14.0); WHITE BLOOD COUNT 11.1 10^3/uL (4.0-10.5)
--- NOTE | 2019-07-12 23:52 | RADIOLOGY REPORT (SQ) ---
CLINICAL INDICATION: hypoxia, recent pneumonia. TECHNIQUE: A single portable AP view was obtained of the chest at 2329 hours. COMPARISON: July 08, 2019. FINDINGS: The cardiomediastinal silhouette is enlarged but stable. The lungs definite chronic the bases. Improved aeration. No evidence of effusion or pneumothorax. The visualized bones are unremarkable. IMPRESSION: Improved aeration. Residual crowding at the bases.
[2019-07-13 00:03] LABS: A TYPE INFLUENZA AG NEGATIVE (NEGATIVE); B INFLUENZA AG NEGATIVE (NEGATIVE)
[2019-07-13 00:06] LABS: ABSOLUTE MONOCYTES # (MANUAL) 0.4 10^3/uL (0.1-1.4); BASOPHILS % (MANUAL) 0 % (0-2); EOSINOPHILS % (MANUAL) 0 % (0-6); LYMPHOCYTES % (MANUAL) 9 % (13-45); MONOCYTES % (MANUAL) 4 % (3-13); SEGMENTED NEUTROPHILS % (MAN) 87 % (42-78); TOTAL CELLS COUNTED 100; TOXIC GRANULATION SLIGHT
[2019-07-13 00:07] LABS: ANISOCYTOSIS SLIGHT; HYPOCHROMASIA SLIGHT; OVALOCYTES SLIGHT; PLATELET COMMENT ADEQUATE; POIKILOCYTOSIS SLIGHT; TROPONIN I 0.035 ng/mL
[2019-07-13] MEDS ORDERED: ASPIRIN 325 MG TABLET PO ONE (00:08)
[2019-07-13] MEDS ORDERED: ALBUTEROL SULFATE 0.083% NEB 2.5 MG/3 ML AMPUL NEB ONE (00:20)
[2019-07-13 00:46] LABS: APPEARANCE,URINE CLEAR; BILIRUBIN,URINE NEGATIVE (NEGATIVE); COLOR,URINE YELLOW; GLUCOSE, URINE NEGATIVE (NEGATIVE); KETONES,URINE NEGATIVE (NEGATIVE); PROTEIN,URINE NEGATIVE (NEGATIVE); UROBILINOGEN,URINE NEGATIVE mg/dL (<2.0)
[2019-07-13] MEDS ORDERED: ACETAMINOPHEN 325 MG TABLET PO PRN (02:57)
[2019-07-13] MEDS ORDERED: IPRATROPIUM/ALBUTEROL 0.5-2.5 MG/3 ML AMPUL NEB PRN (02:57)
[2019-07-13] MEDS ORDERED: RINGERS SOLUTION,LACTATED 1,000 ML IV PRN (02:57)
[2019-07-13 03:43] LABS: INTERNATIONAL RATION (INR) 1.08
[2019-07-13 03:44] LABS: PARTIAL THROMBOPLASTIN TIME 24.5 SEC (23.5-35.8)
[2019-07-13 03:54] LABS: ARTERIAL BLOOD BASE EXCESS 9.3 mmol/L; ARTERIAL BLOOD H2CO3 1.88 mmol/L (1.05-1.35); ARTERIAL BLOOD HCO3 36.7 mmol/L (20-24); ARTERIAL BLOOD O2 SATURATION 91.4 % (94-98); ARTERIAL BLOOD PCO2 62.5 mmHg (35-45); ARTERIAL BLOOD PH 7.39 (7.35-7.45); ARTERIAL BLOOD PO2 63.6 mmHg (80-100); ARTERIAL BLOOD TOTAL CO2 38.6 mmol/L (23-27)
[2019-07-13 03:55] LABS: ARTERIAL BLOOD FIO2 32%
[2019-07-13 04:01] LABS: PHOSPHORUS 3.4 mg/dL (2.5-4.5)
[2019-07-13] MEDS: PREDNISONE 20 MG TABLET PO SCH ×2 (04:01→09:52)
[2019-07-13 04:42] LABS: FREE T4 (FREE THYROXINE) 0.79 ng/dL (0.78-2.19)
[2019-07-13 04:43] LABS: CREATINE KINASE MB 2.75 ng/mL (<4.55); TROPONIN I 0.046 ng/mL
[2019-07-13 04:56] LABS: THYROID STIMULATING HORMONE 0.33 uIU/mL (0.47-4.68)
[2019-07-13 07:00] LABS: APPEARANCE,URINE CLEAR; BILIRUBIN,URINE NEGATIVE (NEGATIVE); COLOR,URINE STRAW; GLUCOSE, URINE NEGATIVE (NEGATIVE); KETONES,URINE NEGATIVE (NEGATIVE); LEUKOCYTE ESTERASE,URINE NEGATIVE (NEGATIVE); NITRITE,URINE NEGATIVE (NEGATIVE); PROTEIN,URINE NEGATIVE (NEGATIVE); URINE SPECIFIC GRAVITY 1.009; UROBILINOGEN,URINE NEGATIVE mg/dL (<2.0)
[2019-07-13 07:15] LABS: URINE AMPHETAMINES SCREEN NEGATIVE; URINE BARBITURATES SCREEN NEGATIVE; URINE BENZODIAZEPINES SCREEN NEGATIVE; URINE COCAINE SCREEN NEGATIVE; URINE MARIJUANA (THC) SCREEN NEGATIVE; URINE METHADONE SCREEN NEGATIVE; URINE PHENCYCLIDINE SCREEN NEGATIVE
--- NOTE | 2019-07-13 08:32 | EKG REPORT ---
SEVERITY:- ABNORMAL ECG - SINUS RHYTHM LAD, CONSIDER LEFT ANTERIOR FASCICULAR BLOCK ABNORMAL T, CONSIDER ISCHEMIA, ANTERIOR LEADS PROLONGED QT INTERVAL : Confirmed by: Brannon Bella MD 13-Jul-2019 08:31:52
[2019-07-13] MEDS ORDERED: ENOXAPARIN SODIUM INJ 40 MG/0.4 ML DISP.SYRIN SUBCUT SCH (10:00)
[2019-07-13 10:52] LABS: CREATINE KINASE MB 2.64 ng/mL (<4.55); TROPONIN I 0.026 ng/mL
[2019-07-13] MEDS ORDERED: ALBUTEROL SULFATE HFA (90 MCG/PUFF) 8 GM MDI IH PRN (13:35)
[2019-07-13 16:00] LABS: CREATINE KINASE MB 2.67 ng/mL (<4.55); TROPONIN I 0.028 ng/mL
[2019-07-13 16:28] VITALS: BP 158/92
--- NOTE | 2019-07-13 18:52 | PDOC H&P ---
History of Present Illness Admission Date/PCP: 07/13/19 01:15 JP MENDES MD History of Present Illness: DAVIAN ROY is a 58 year old male, Patient was discharged yesterday, he was admitted originally for acute on chronic hypercapnic and hypoxemic respiratory failure with acute COPD exacerbation associated with moderate to severe pulmonary hypertension, he was discharged home on oxygen ,the oxygen was not delivered to his residence before he got home, on arrival at home he started smoking cigarettes again he got short of breath, he called rescue squad and he was transferred back to the emergency room for evaluation. The emergency room physician felt patient needed to be admitted and also needed to rule out for COVID 19.I saw patient on the floor, on the fifth floor isolated being a patient under investigation for COVID-19, I have a very low suspicion for COVID 19 in this patient, he is no different from when he was discharged yesterday clinically, patient's mother called the floor to indicate that the oxygen was already delivered to his home, he stays with his mother.When I entered his room the very first statement out of his mouth was if he could be discharged home because his oxygen has been delivered to his residence. Patient could be discharged home but because he is under investigation for COVID 19 he has to follow the CDC guidelines regarding this pandemic the nursing staff will give him the guideline necessary, I do not see any indication for this patient to continue to be inpatient, he is stable enough for discharge home he has severe secondary pulmonary hypertension due to COPD Past Medical History Cardiac Medical History: Reports: Hyperlipidema Pulmonary Medical History: Reports: Chronic Obstructive Pulmonary Disease (COPD), Pneumonia, Respiratory Failure - Secondary pulmonary hypertension, Other Musculoskeltal Medical History: Reports: Arthritis Psychiatric Medical History: Reports: Depression Hematology: Denies: Sickle Cell Disease Infectious Medical History: Denies: HIV Past Surgical History Past Surgical History: Reports: Appendectomy, Cholecystectomy, Herniorrhaphy Social History Smoking Status: Current Every Day Smoker Frequency of Alcohol Use: None Hx Recreational Drug Use: No Drugs: None Hx Prescription Drug Abuse: No Family History Family History: Reviewed & Not Pertinent Parental Family History Reviewed: Yes Children Family History Reviewed: Yes Sibling(s) Family History Reviewed.: Yes Medication/Allergy Home Medications: Clonazepam [Klonopin 1 mg Tablet] 1 mg PO Q8 02/05/15 Lurasidone HCl [Latuda] 20 mg PO DAILY 10/20/15 Clonidine HCl [Catapres 0.1 mg Tablet] 0.1 mg PO QHS 07/07/19 Hydroxyzine HCl [Atarax 10 mg Tablet] 50 mg PO BID 07/07/19 Pregabalin [Lyrica] 200 mg PO Q12 07/07/19 Budesonide/Formoterol Fumarate [Symbicort HFA 160-4.5 mcg Inhaler 6 gm] 2 puff IH Q12 #1 inhaler 07/12/19 Albuterol Sulfate [Proair HFA Inhalation Aerosol 8.5 gm MDI] 2 puff IH Q4HP PRN 07/13/19 Prednisone [Deltasone 20 mg Tablet] 10 mg PO ASDIR PRN 07/13/19 Tiotropium [place] [Spiriva Respimat] 1 puff IH DAILY 07/13/19 Umeclidinium Brm/Vilanterol Tr [Anoro Ellipta 62.5-25 Mcg INH] 1 puff IH DAILY 0 07/13/19 Allergies/Adverse Reactions: adhesive [Adhesive] Allergy (Verified 07/12/19 23:31) pseudoephedrine HCl [From Sudafed] Allergy (Verified 07/12/19 23:31) Review of Systems Constitutional: ABSENT: chills, fever(s), headache(s), weight gain, weight loss Eyes: ABSENT: visual disturbances Ears: ABSENT: hearing changes Cardiovascular: ABSENT: chest pain, dyspnea on exertion, edema, orthropnea, palpitations Respiratory: ABSENT: cough, hemoptysis Gastrointestinal: ABSENT: abdominal pain, constipation, diarrhea, hematemesis, hematochezia, nausea, vomiting Genitourinary: ABSENT: dysuria, hematuria Musculoskeletal: ABSENT: joint swelling Integumentary: ABSENT: rash, wounds Neurological: ABSENT: abnormal gait, abnormal speech, confusion, dizziness, focal weakness, syncope Psychiatric: ABSENT: anxiety, depression, homidical ideation, suicidal ideation Endocrine: ABSENT: cold intolerance, heat intolerance, menstrual abnormalities, polydipsia, polyuria Hematologic/Lymphatic: ABSENT: easy bleeding, easy bruising, lymphadenopathy Physical Exam Vital Signs: Temp Pulse Resp BP Pulse Ox 97.8 F 71 20 158/92 H 94 07/13/19 18:07 07/13/19 18:07 07/13/19 18:07 07/13/19 15:43 07/13/19 18:07 Intake & Output 07/12/19 07/13/19 07/14/19 06:59 06:59 06:59 Intake Total 360 720 Output Total 400 Balance -40 720 Weight 129.2 kg General appearance: PRESENT: no acute distress, well-developed, well-nourished Head exam: PRESENT: atraumatic, normocephalic Eye exam: PRESENT: conjunctiva pink, EOMI, PERRLA Ear exam: PRESENT: normal external ear exam Mouth exam: PRESENT: moist, tongue midline Neck exam: PRESENT: full ROM. ABSENT: carotid bruit, JVD, lymphadenopathy, thyromegaly Respiratory exam: PRESENT: clear to auscultation stephanie Cardiovascular exam: PRESENT: RRR, +S1, +S2 Pulses: PRESENT: normal dorsalis pedis pul, +2 pedal pulses bilateral Vascular exam: PRESENT: normal capillary refill GI/Abdominal exam: PRESENT: normal bowel sounds, soft Rectal exam: PRESENT: deferred Extremities exam: PRESENT: pedal edema Neurological exam: PRESENT: alert, awake, oriented to person, oriented to place, oriented to time, oriented to situation, CN II-XII grossly intact Psychiatric exam: PRESENT: appropriate affect, normal mood Skin exam: PRESENT: dry, intact, warm Results Laboratory Results: 07/12/19 22:48 07/12/19 22:48 07/12/19 07/12/19 07/12/19 22:48 22:48 22:48 WBC 11.1 H RBC 5.33 Hgb 14.0 Hct 44.4 MCV 83 MCH 26.2 L MCHC 31.4 L RDW 15.1 H Plt Count 196 Seg Neutrophils % Not Reportable Carbonic Acid HCO3/H2CO3 Ratio ABG pH ABG pCO2 ABG pO2 ABG HCO3 ABG O2 Saturation ABG Base Excess VBG pH 7.41 VBG pCO2 56.6 VBG HCO3 35.0 H VBG Base Excess 8.3 FiO2 Sodium 136.6 L Potassium 3.9 Chloride 95 L Carbon Dioxide 36 H Anion Gap 6 BUN 33 H Creatinine 1.01 Est GFR ( Amer) > 60 Glucose 174 H Lactic Acid Calcium 8.1 L Phosphorus Magnesium Total Bilirubin 0.7 AST 59 Alkaline Phosphatase 78 Total Protein 6.4 Albumin 3.3 L TSH Free T4 Urine Color Urine Appearance Urine pH Ur Specific [place] Urine Protein Urine Glucose (UA) Urine Ketones Urine Blood Urine Nitrite Ur Leukocyte Esterase Urine RBC (Auto) 07/12/19 07/13/19 07/13/19 22:48 00:16 02:35 WBC RBC Hgb Hct MCV MCH MCHC RDW Plt Count Seg Neutrophils % Carbonic Acid HCO3/H2CO3 Ratio ABG pH ABG pCO2 ABG pO2 ABG HCO3 ABG O2 Saturation ABG Base Excess VBG pH VBG pCO2 VBG HCO3 VBG Base Excess FiO2 Sodium Potassium Chloride Carbon Dioxide Anion Gap BUN Creatinine Est GFR ( Amer) Glucose Lactic Acid 2.7 H 2.0 Calcium Phosphorus Magnesium Total Bilirubin AST Alkaline Phosphatase Total Protein Albumin TSH Free T4 Urine Color YELLOW Urine Appearance CLEAR Urine pH 6.0 Ur Specific [place] 1.010 Urine Protein NEGATIVE Urine Glucose (UA) NEGATIVE Urine Ketones NEGATIVE Urine Blood NEGATIVE Urine Nitrite Ur Leukocyte Esterase Urine RBC (Auto) 1 07/13/19 07/13/19 07/13/19 03:17 03:17 03:30 WBC RBC Hgb Hct MCV MCH MCHC RDW Plt Count Seg Neutrophils % Carbonic Acid 1.88 H HCO3/H2CO3 Ratio 19:1 ABG pH 7.39 ABG pCO2 62.5 H ABG pO2 63.6 L ABG HCO3 36.7 H ABG O2 Saturation 91.4 L ABG Base Excess 9.3 VBG pH VBG pCO2 VBG HCO3 VBG Base Excess FiO2 32% Sodium Potassium Chloride Carbon Dioxide Anion Gap BUN Creatinine Est GFR ( Amer) Glucose Lactic Acid Calcium Phosphorus 3.4 Magnesium 2.0 Total Bilirubin AST Alkaline Phosphatase Total Protein Albumin TSH 0.33 L Free T4 0.79 Urine Color Urine Appearance Urine pH Ur Specific [place] Urine Protein Urine Glucose (UA) Urine Ketones Urine Blood Urine Nitrite Ur Leukocyte Esterase Urine RBC (Auto) 07/13/19 07/13/19 06:23 06:39 WBC RBC Hgb Hct MCV MCH MCHC RDW Plt Count Seg Neutrophils % Carbonic Acid HCO3/H2CO3 Ratio ABG pH ABG pCO2 ABG pO2 ABG HCO3 ABG O2 Saturation ABG Base Excess VBG pH VBG pCO2 VBG HCO3 VBG Base Excess FiO2 Sodium Potassium Chloride Carbon Dioxide Anion Gap BUN Creatinine Est GFR ( Amer) Glucose Lactic Acid 1.6 Calcium Phosphorus Magnesium Total Bilirubin AST Alkaline Phosphatase Total Protein Albumin TSH Free T4 Urine Color STRAW Urine Appearance CLEAR Urine pH 6.0 Ur Specific [place] 1.009 Urine Protein NEGATIVE Urine Glucose (UA) NEGATIVE Urine Ketones NEGATIVE Urine Blood NEGATIVE Urine Nitrite NEGATIVE Ur Leukocyte Esterase NEGATIVE Urine RBC (Auto) 0 07/12/19 07/13/19 07/13/19 22:48 03:17 03:17 Creatine Kinase 96 CK-MB (CK-2) 2.75 Troponin I 0.035 0.046 NT-Pro-B Natriuret Pep 2880 H 07/13/19 07/13/19 07/13/19 03:17 08:50 08:50 Creatine Kinase 69 CK-MB (CK-2) 2.64 Troponin I 0.026 NT-Pro-B Natriuret Pep 3160 H 07/13/19 07/13/19 15:06 15:06 Creatine Kinase 68 CK-MB (CK-2) 2.67 Troponin I 0.028 NT-Pro-B Natriuret Pep Impressions: Chest X-Ray 07/12/19 23:05 IMPRESSION: Improved aeration. Residual crowding at the bases. Assessment & Plan - Diagnosis (1) Chronic respiratory failure Qualifiers: Respiratory failure complication: hypoxia and hypercapnia Qualified Code(s): J96.11 - Chronic respiratory failure with hypoxia; J96.12 - Chronic respiratory failure with hypercapnia Is this a current diagnosis for this admission?: Yes Plan: What he needs right now is oxygen, the oxygen has been delivered to his home, there is no wheezing for him to remain in the hospital, he will be discharged home he will continue the discharge plan from yesterday, he will continue the CDC guideline regarding person under investigation for COVID 19 (2) Secondary pulmonary arterial hypertension Is this a current diagnosis for this admission?: Yes (3) Cor pulmonale (chronic) Is this a current diagnosis for this admission?: Yes
--- NOTE | 2019-07-13 18:57 | PDOC DISCHARGE SUMMARY ---
Impression - Admit/DC Date/PCP Admission Date/Primary Care Provider: 07/13/19 01:15 JP MENDES MD Discharge Date: 07/13/19 - Discharge Diagnosis (1) Chronic respiratory failure Is this a current diagnosis for this admission?: Yes (2) Secondary pulmonary arterial hypertension Is this a current diagnosis for this admission?: Yes (3) Cor pulmonale (chronic) Is this a current diagnosis for this admission?: Yes - Additional Information Discharge Diet: As Tolerated Discharge Activity: Activity As Tolerated Referrals: [facility] [Outside] (PATIENT TO BE FOLLOWED BY HEALTH DEPT. ON SELF QUARANTINE AT HOME. ONCE THE HEALTH DEPT. RELEASES PATIENT THEN PATIENT MAY SCHEDULE A FOLLOW UP APPT. WITH PCP.) JP MENDES MD [Primary Care Provider] - 07/21/19 1:30 pm () Home Medications: Clonazepam [Klonopin 1 mg Tablet] 1 mg PO Q8 02/05/15 Lurasidone HCl [Latuda] 20 mg PO DAILY 02/05/15 Clonidine HCl [Catapres 0.1 mg Tablet] 0.1 mg PO QHS 07/07/19 Hydroxyzine HCl [Atarax 10 mg Tablet] 50 mg PO BID 07/07/19 Pregabalin [Lyrica] 200 mg PO Q12 07/07/19 Budesonide/Formoterol Fumarate [Symbicort HFA 160-4.5 mcg Inhaler 6 gm] 2 puff IH Q12 #1 inhaler 07/12/19 Albuterol Sulfate [Proair HFA Inhalation Aerosol 8.5 gm MDI] 2 puff IH Q4HP PRN 07/13/19 Prednisone [Deltasone 20 mg Tablet] 10 mg PO ASDIR PRN 07/13/19 Tiotropium [place] [Spiriva Respimat] 1 puff IH DAILY 07/13/19 Umeclidinium Brm/Vilanterol Tr [Anoro Ellipta 62.5-25 Mcg INH] 1 puff IH DAILY 07/13/19 History of Present Illiness History of Present Illness: DAVIAN ROY is a 58 year old male, Patient was discharged yesterday, he was admitted originally for acute on chronic hypercapnic and hypoxemic respiratory failure with acute COPD exacerbation associated with moderate to severe pulmonary hypertension, he was discharged home on oxygen ,the oxygen was not delivered to his residence before he got home, on arrival at home he started smoking cigarettes again he got short of breath, he called rescue squad and he was transferred back to the emergency room for evaluation. The emergency room physician felt patient needed to be admitted and also needed to rule out for COVID 19.I saw patient on the floor, on the fifth floor isolated being a patient under investigation for COVID-19, I have a very low suspicion for COVID 19 in this patient, he is no different from when he was discharged yesterday clinically, patient's mother called the floor to indicate that the oxygen was already delivered to his home, he stays with his mother.When I entered his room the very first statement out of his mouth was if he could be discharged home because his oxygen has been delivered to his residence. Patient could be discharged home but because he is under investigation for COVID 19 he has to follow the CDC guidelines regarding this pandemic the nursing staff will give him the guideline necessary, I do not see any indication for this patient to continue to be inpatient, he is stable enough for discharge home he has severe secondary pulmonary hypertension due to COPD Hospital Course Hospital Course: Patient was admitted see HPI for details Physical Exam Vital Signs: Temp Pulse Resp BP Pulse Ox 97.8 F 71 20 158/92 H 94 07/13/19 18:07 07/13/19 18:07 07/13/19 18:07 07/13/19 15:43 07/13/19 18:07 Intake & Output 07/12/19 07/13/19 07/14/19 06:59 06:59 06:59 Intake Total 360 1420 Output Total 400 Balance -40 1420 Weight 129.2 kg General appearance: PRESENT: no acute distress Eye exam: PRESENT: PERRLA Respiratory exam: PRESENT: clear to auscultation stephanie Cardiovascular exam: PRESENT: +S1, +S2 GI/Abdominal exam: PRESENT: soft Neurological exam: PRESENT: alert, CN II-XII grossly intact Results Laboratory Results: WBC 11.1 10^3/uL (4.0-10.5) H 07/12/19 22:48 RBC 5.33 10^6/uL (4.35-5.55) 07/12/19 22:48 Hgb 14.0 g/dL (13.5-17.0) 07/12/19 22:48 Hct 44.4 % (37.9-51.0) 07/12/19 22:48 MCV 83 fl (80-97) 07/12/19 22:48 MCH 26.2 pg (27.0-33.4) L 07/12/19 22:48 MCHC 31.4 g/dL (32.0-36.0) L 07/12/19 22:48 RDW 15.1 % (11.5-14.0) H 07/12/19 22:48 Plt Count 196 10^3/uL (150-450) 07/12/19 22:48 Lymph % (Auto) Not Reportable 07/12/19 22:48 [place] % (Auto) Not Reportable 07/12/19 22:48 Eos % (Auto) Not Reportable 07/12/19 22:48 Baso % (Auto) Not Reportable 07/12/19 22:48 Absolute Neuts (auto) Not Reportable 07/12/19 22:48 Absolute Lymphs (auto) Not Reportable 07/12/19 22:48 Absolute Monos (auto) Not Reportable 07/12/19 22:48 Absolute Eos (auto) Not Reportable 07/12/19 22:48 Absolute Basos (auto) Not Reportable 07/12/19 22:48 Total Counted 100 07/12/19 22:48 Seg Neutrophils % Not Reportable 07/12/19 22:48 Seg Neuts % (Manual) 87 % (42-78) H 07/12/19 22:48 Lymphocytes % (Manual) 9 % (13-45) L 07/12/19 22:48 Monocytes % (Manual) 4 % (3-13) 07/12/19 22:48 Eosinophils % (Manual) 0 % (0-6) 07/12/19 22:48 Basophils % (Manual) 0 % (0-2) 07/12/19 22:48 Abs Neuts (Manual) 9.7 10^3/uL (1.7-8.2) H 07/12/19 22:48 Abs Lymphs (Manual) 1.0 10^3/uL (0.5-4.7) 07/12/19 22:48 Abs Monocytes (Manual) 0.4 10^3/uL (0.1-1.4) 07/12/19 22:48 Absolute Eos (Manual) 0.0 10^3/uL (0.0-0.6) 07/12/19 22:48 Abs Basophils (Manual) 0.0 10^3/uL (0.0-0.2) 07/12/19 22:48 Toxic Granulation SLIGHT 07/12/19 22:48 Platelet Comment ADEQUATE 07/12/19 22:48 Hypochromasia SLIGHT 07/12/19 22:48 Poikilocytosis SLIGHT 07/12/19 22:48 Anisocytosis SLIGHT 07/12/19 22:48 Ovalocytes SLIGHT 07/12/19 22:48 PT 14.0 SEC (11.4-15.4) 07/13/19 03:17 INR 1.08 07/13/19 03:17 APTT 24.5 SEC (23.5-35.8) 07/13/19 03:17 Carbonic Acid 1.88 mmol/L (1.05-1.35) H 07/13/19 03:30 HCO3/H2CO3 Ratio 19:1 07/13/19 03:30 ABG pH 7.39 (7.35-7.45) 07/13/19 03:30 ABG pCO2 62.5 mmHg (35-45) H 07/13/19 03:30 ABG pO2 63.6 mmHg (80-100) L 07/13/19 03:30 ABG HCO3 36.7 mmol/L (20-24) H 07/13/19 03:30 ABG Total CO2 38.6 mmol/L (23-27) H 07/13/19 03:30 ABG O2 Saturation 91.4 % (94-98) L 07/13/19 03:30 ABG Base Excess 9.3 mmol/L 07/13/19 03:30 VBG pH 7.41 (7.30-7.42) 07/12/19 22:48 VBG pCO2 56.6 mmHg (35-63) 07/12/19 22:48 VBG HCO3 35.0 mmol/L (20-32) H 07/12/19 22:48 VBG Base Excess 8.3 mmol/L 07/12/19 22:48 FiO2 32% 07/13/19 03:30 Sodium 136.6 mmol/L (137-145) L 07/12/19 22:48 Potassium 3.9 mmol/L (3.6-5.0) 07/12/19 22:48 Chloride 95 mmol/L (98-107) L 07/12/19 22:48 Carbon Dioxide 36 mmol/L (22-30) H 07/12/19 22:48 Anion Gap 6 (5-19) 07/12/19 22:48 BUN 33 mg/dL (7-20) H 07/12/19 22:48 Creatinine 1.01 mg/dL (0.52-1.25) 07/12/19 22:48 Est GFR ( Amer) > 60 (>60) 07/12/19 22:48 Est GFR (MDRD) Non-Af > 60 (>60) 07/12/19 22:48 Glucose 174 mg/dL (75-110) H 07/12/19 22:48 POC Glucose 121 mg/dL (70-110) H 07/13/19 02:42 Lactic Acid 1.6 mmol/L (0.7-2.1) 07/13/19 06:23 Calcium 8.1 mg/dL (8.4-10.2) L 07/12/19 22:48 Phosphorus 3.4 mg/dL (2.5-4.5) 07/13/19 03:17 Magnesium 2.0 mg/dL (1.6-2.3) 07/13/19 03:17 Total Bilirubin 0.7 mg/dL (0.2-1.3) 07/12/19 22:48 Direct Bilirubin 0.3 mg/dL (0.0-0.4) 07/12/19 22:48 Neonat Total Bilirubin Not Reportable 07/12/19 22:48 Neonat Direct Bilirubin Not Reportable 07/12/19 22:48 Neonat Indirect Bili Not Reportable 07/12/19 22:48 AST 59 U/L (17-59) 07/12/19 22:48 ALT 57 U/L (<50) H 07/12/19 22:48 Alkaline Phosphatase 78 U/L (38-126) 07/12/19 22:48 Creatine Kinase 68 U/L (55-170) 07/13/19 15:06 CK-MB (CK-2) 2.67 ng/mL (<4.55) 07/13/19 15:06 Troponin I 0.028 ng/mL 07/13/19 15:06 NT-Pro-B Natriuret Pep 3160 pg/mL (<125) H 07/13/19 03:17 Total Protein 6.4 g/dL (6.3-8.2) 07/12/19 22:48 Albumin 3.3 g/dL (3.5-5.0) L 07/12/19 22:48 TSH 0.33 uIU/mL (0.47-4.68) L 07/13/19 03:17 Free T4 0.79 ng/dL (0.78-2.19) 07/13/19 03:17 Urine Color STRAW 07/13/19 06:39 Urine Appearance CLEAR 07/13/19 06:39 Urine pH 6.0 (5.0-9.0) 07/13/19 06:39 Ur Specific [place] 1.009 07/13/19 06:39 Urine Protein NEGATIVE mg/dL (NEGATIVE) 07/13/19 06:39 Urine Glucose (UA) NEGATIVE mg/dL (NEGATIVE) 07/13/19 06:39 Urine Ketones NEGATIVE mg/dL (NEGATIVE) 07/13/19 06:39 Urine Blood NEGATIVE (NEGATIVE) 07/13/19 06:39 Urine Nitrite NEGATIVE (NEGATIVE) 07/13/19 06:39 Urine Nitrite (Reflex) NEGATIVE (NEGATIVE) 07/13/19 00:16 Urine Bilirubin NEGATIVE (NEGATIVE) 07/13/19 06:39 Urine Urobilinogen NEGATIVE mg/dL (<2.0) 07/13/19 06:39 Ur Leukocyte Esterase NEGATIVE (NEGATIVE) 07/13/19 06:39 Leukocyte Esterase Rfl NEGATIVE (NEGATIVE) 07/13/19 00:16 Urine RBC (Auto) 0 /HPF 07/13/19 06:39 U Hyaline Cast (Auto) 1 /LPF 07/13/19 00:16 Urine WBC (Reflex) < 1 /HPF 07/13/19 00:16 Urine Mucus (Auto) RARE /LPF 07/13/19 06:39 Urine Ascorbic Acid NEGATIVE (NEGATIVE) 07/13/19 06:39 Urine Opiates Screen NEGATIVE 07/13/19 06:39 Urine Methadone Screen NEGATIVE 07/13/19 06:39 Ur Barbiturates Screen NEGATIVE 07/13/19 06:39 Ur Phencyclidine Scrn NEGATIVE 03/26/20 06:39 Ur Amphetamines Screen NEGATIVE 07/13/19 06:39 U Benzodiazepines Scrn NEGATIVE 07/13/19 06:39 Urine Cocaine Screen NEGATIVE 07/13/19 06:39 U Marijuana (THC) Screen NEGATIVE 07/13/19 06:39 Influenza A (Rapid) NEGATIVE (NEGATIVE) 07/12/19 23:13 Influenza B (Rapid) NEGATIVE (NEGATIVE) 07/12/19 23:13 07/12/19 07/13/19 07/13/19 22:48 03:17 03:17 CK-MB (CK-2) 2.75 Troponin I 0.035 0.046 NT-Pro-B Natriuret Pep 2880 H 3160 H 07/13/19 07/13/19 08:50 15:06 CK-MB (CK-2) 2.64 2.67 Troponin I 0.026 0.028 NT-Pro-B Natriuret Pep Impressions: Chest X-Ray 07/12/19 23:05 IMPRESSION: Improved aeration. Residual crowding at the bases. Stroke Is this a Stroke Patient?: No Acute Heart Failure - Is this a Heart Failure Patient?: No
== END 2019-07-13 18:37 | disposition home or self-care (01) | DRG 191 ==
LOC: ER 22:40 → EH 07-13 01:15 → 5 07-13 02:02
PROVIDERS: ADMIT Internal Medicine; ATTEND Internal Medicine
DX: J44.1 Chronic obstructive pulmonary disease with (acute) exacerbation (principal); J96.12 Chronic respiratory failure with hypercapnia; E66.2 Morbid (severe) obesity with alveolar hypoventilation; I27.81 Cor pulmonale (chronic); I15.8 Other secondary hypertension; E78.5 Hyperlipidemia, unspecified; F32.9 Major depressive disorder, single episode, unspecified; F17.210 Nicotine dependence, cigarettes, uncomplicated; Z99.81 Dependence on supplemental oxygen; Z79.899 Other long term (current) drug therapy; Z91.048 Other nonmedicinal substance allergy status; Z88.8 Allergy status to other drugs, medicaments and biological substances
CPT/HCPCS: 36415; 36600; 71045; 80053; 80307; 81001; 82550; 82553; 82803; 82962; 83605; 83735; 83880; 84100; 84439; 84443; 84484; 85025; 85610; 85730; 87040; 87086; 87635; 87804; 93005; 93010; 94640; 96374; 99285; J1650; J1940; J3490; J7120; J7512; J7620

== ENCOUNTER 2019-08-14 09:07 | Emergency (ER) | payer MEDICAID ==
--- NOTE | 2019-08-14 09:48 | ER Document Report ---
ED Fall - General Chief Complaint: Fall Stated Complaint: FALL Time Seen by Provider: 08/14/19 09:32 Primary Care Provider: JP MENDES MD [Primary Care Provider] - Follow up as needed Notes: HPI: Patient is a 58-year-old male who states 2 days ago in the morning he "rolled out of bed" accidentally falling onto the floor hitting his right ribs. He denies head trauma, loss of consciousness, fevers, or vomiting. Patient has a history of COPD on home oxygen. Patient denies pain and injury to any other location including his neck, midline posterior spine, pelvis, or extremities. ROS: See HPI All other review of systems reviewed and otherwise negative Reviewed vital signs and nursing note as charted by RN. PHYSICAL EXAM: CONSTITUTIONAL: Alert and oriented and responds appropriately to questions. Well-appearing; well-nourished HEAD: Normocephalic; atraumatic EYES: PERRL ENT: Midface is stable NECK: Supple without meningismus; non-tender CARD: Regular rate and rhythm; no murmurs; symmetric distal pulses RESP: Mild tenderness to right anterior ribs without any obvious swelling, crepitus, or erythema. Patient has bilateral equal breath sounds with very minimal end expiratory wheezing ABD/GI: Normal bowel sounds; very elevated BMI; soft, non-tender; no palpable organomegaly or masses BACK: The back appears normal and is non-tender to palpation along the midline spine EXT: Normal ROM in all joints; non-tender to palpation; no edema SKIN: No acute lesions noted NEURO: CN 2-12 intact; 5/5 bilateral upper and lower extremity strength with sensation intact to light touch PSYCH: The patient's mood and manner are appropriate. Grooming and personal hygiene are appropriate. TRAVEL OUTSIDE OF THE [place] IN LAST 30 DAYS: No - Related data Allergies/Adverse Reactions: adhesive [Adhesive] Allergy (Verified 08/14/19 09:40) pseudoephedrine HCl [From Sudafed] Allergy (Verified 08/14/19 09:40) Past Medical History - Social History Smoking Status: Current Every Day Smoker Family History: Reviewed & Not Pertinent Patient has suicidal ideation: No Patient has homicidal ideation: No - Past Medical History Cardiac Medical History: Reports: Hx Congestive Heart Failure, Hx Hypercholesterolemia Pulmonary Medical History: Reports: Hx COPD, Hx Pneumonia, Hx Respiratory Failure - Secondary pulmonary hypertension Denies: Hx Tuberculosis Neurological Medical History: Denies: Hx Seizures Endocrine Medical History: Reports: Hx Diabetes Mellitus Type 2 Renal/ Medical History: Denies: Hx Peritoneal Dialysis GI Medical History: Denies: Hx Cirrhosis, Hx Ulcerative Colitis Musculoskeletal Medical History: Reports Hx Arthritis, Reports Hx Muscle Weakness, Reports Hx Musculoskeletal Deformity, Reports Hx Musculoskeletal Trauma Psychiatric Medical History: Reports: Hx Anxiety, Hx Depression Infectious Medical History: Denies: Hx HIV Past Surgical History: Reports: Hx Abdominal Surgery - hernia repair, Hx Appendectomy, Hx Cholecystectomy, Hx Herniorrhaphy. Denies: Hx Pacemaker - Immunizations Immunizations up to date: Yes Hx Diphtheria, Pertussis, Tetanus Vaccination: Yes Physical Exam - Vital signs Vitals: Temp Pulse Resp BP Pulse Ox 98.6 F 95 20 127/81 H 93 08/14/19 09:31 08/14/19 09:31 08/14/19 09:31 08/14/19 09:31 08/14/19 09:31 Course - Re-evaluation Re-evalutation: 08/14/19 09:47 Given the above history and physical examination, I will order an x-ray of the chest, PA lateral. I do not believe that the patient requires any other imaging or laboratory work at this moment. Patient denies injury to any other location. He denies head trauma. He denies being on blood thinning medications. He denies shortness of breath above baseline. Patient has been afebrile without cough. Given his history of COPD he did have a coronavirus 19 test July 11 that was negative. 08/14/19 13:23 Initial x-ray as recorded. The patient's pain and fall was on the right side. I did call and speak to the radiologist. He did compare to previous x-rays which did show a similar finding but he thought it looked slightly worse. He did recommend having a CT scan of the chest without contrast performed. This has been ordered and resulted. Patient symptoms are all in the right anterior aspect of the chest wall. No obvious fracture seen on CT scan. Patient has no cough or fever above baseline. Recent coronavirus 19 testing is negative. Patient will be discharged home with strict return precautions and follow-up with the primary care physician as an outpatient. - Vital Signs Vital signs: Temp Pulse Resp BP Pulse Ox 98.6 F 95 20 127/81 H 93 08/14/19 09:31 08/14/19 09:31 08/14/19 09:31 08/14/19 09:31 08/14/19 09:31 Discharge - Discharge Clinical Impression: Lung consolidation Accidental fall Qualifiers: Encounter type: initial encounter Qualified Code(s): W19.XXXA - Unspecified fall, initial encounter Contusion of rib on right side Qualifiers: Encounter type: initial encounter Qualified Code(s): S20.211A - Contusion of right front wall of thorax, initial encounter Condition: Good Disposition: HOME, SELF-CARE Additional Instructions: Come back immediately for any increased pain, difficulty breathing, shortness of breath, fevers, or any other acute problems. Please make sure that you follow- up with the primary care physician for reassessment as discussed and to reassess the left lung field as we have found by CT scan of the chest. Referrals: JP MENDES MD [Primary Care Provider] - Follow up as needed
--- NOTE | 2019-08-14 11:00 | RADIOLOGY REPORT (SQ) ---
EXAM DESCRIPTION: CHEST 2 VIEWS IMAGES COMPLETED DATE/TIME: 08/14/2019 10:25 am REASON FOR STUDY: 11; fall; right anterior rib pain; copd COMPARISON: AP view of the chest from 07/12/2019. EXAM PARAMETERS: NUMBER OF VIEWS: Two views. TECHNIQUE: PA and lateral views of the chest were obtained. RADIATION DOSE: NA LIMITATIONS: None. FINDINGS: LUNGS AND PLEURA: Asymmetric parenchymal opacities in the inferolateral aspect of the left hemithorax. The left lateral costophrenic sulcus is blunted. There is no pneumothorax. MEDIASTINUM AND HILAR STRUCTURES: No mediastinal or hilar contour abnormality. HEART AND VASCULAR STRUCTURES: The cardiac silhouette and pulmonary vasculature are within normal evangelista its. BONES: No acute findings. HARDWARE: None in the chest. OTHER: No other finding. IMPRESSION: Asymmetric parenchymal opacities in the inferolateral aspect of the left hemithorax and blunting of the left lateral costophrenic sulcus. Clinical correlation to exclude a left lower lobe pneumonia with a parapneumonic effusion is recommended. TECHNICAL DOCUMENTATION: JOB ID: [id number] 2010 [employer]- All Rights Reserved Reading location - IP/workstation name: [email or web address]
--- NOTE | 2019-08-14 13:06 | RADIOLOGY REPORT (SQ) ---
EXAM DESCRIPTION: CT CHEST WITHOUT IMAGES COMPLETED DATE/TIME: 08/14/2019 12:49 pm REASON FOR STUDY: 11;eval trauma; lllobe COMPARISON: AP and lateral views of the chest from 08/14/[address] of the chest without contrast fr om 07/07/2019. TECHNIQUE: CT scan performed of the chest without intravenous contrast. Images reviewed with lung, soft tissue and bone windows. Reconstructed coronal and sagittal MPR images reviewed. All images st ored on PACS. All CT scanners at this facility use dose modulation, iterative reconstruction, and/or weight based d osing when appropriate to reduce radiation dose to as low as reasonably achievable (ALARA). [facility]: Dose Right [facility]: CareDose [facility]: Dose Right [facility]: Teradose 4D [facility]: Smart Real Matters RADIATION DOSE: CT Rad equipment meets quality standard of care and radiation dose reduction techniq ues were employed. CTDIvol: 19.1 mGy. DLP: 768 mGy-cm. LIMITATIONS: No technical limitations. FINDINGS: LUNGS AND PLEURA: The trachea main bronchi is are patent. They are arm upper lobe predomi nant subpleural blebs. The subpleural dependent opacities in the lower lobes are consistent with atel ectasis. The asymmetric parenchymal opacity described on the correlative radiograph represent a comb ination of extrapleural lipomatosis and subpleural consolidative opacities in the lingula that could represent an infection or atelectasis. There is no sizable pleural effusion or pneumothorax. HILAR AND MEDIASTINAL STRUCTURES: None no adenopathy or mass. HEART AND VASCULAR STRUCTURES: The main pulmonary artery measures 3.6 cm in transverse diameter. The re is no cardiomegaly or pericardial effusion. UPPER ABDOMEN: Cholecystectomy clips. THYROID AND OTHER SOFT TISSUES: No mass or adenopathy. BONES: Chronic fracture of the left lateral 5th rib. There is no acute fracture. HARDWARE: None in the chest. OTHER: No other findings. IMPRESSION: 1. The asymmetric parenchymal opacities described on the correlative radiograph represe nt a combination of extrapleural lipomatosis and subpleural consolidative opacities in the lingula th at could represent an infection or atelectasis. 2. Chronic fracture of the left lateral 5th rib. There is no acute fracture. TECHNICAL DOCUMENTATION: JOB ID: [id number] Quality ID # [id number]: Final reports with documentation of one or more dose reduction techniques (e.g., Au tomated exposure control, adjustment of the mA and/or kV according to patient size, use of iterative reconstruction technique) 2010 [employer]- All Rights Reserved Reading location - IP/workstation name: [email or web address]
[2019-08-14 14:10] VITALS: BP 141/80
== END 2019-08-14 13:58 | disposition home or self-care (01) ==
LOC: ER 09:07
DX: S20.211A Contusion of right front wall of thorax, initial encounter (principal); J16.8 Pneumonia due to other specified infectious organisms; R07.81 Pleurodynia; W06.XXXA Fall from bed, initial encounter; J44.9 Chronic obstructive pulmonary disease, unspecified; Z99.81 Dependence on supplemental oxygen; F17.200 Nicotine dependence, unspecified, uncomplicated; Z88.8 Allergy status to other drugs, medicaments and biological substances; I50.9 Heart failure, unspecified; E11.9 Type 2 diabetes mellitus without complications
CPT/HCPCS: 71046; 71250; 99284

== ENCOUNTER 2019-08-25 22:20 | Emergency (ER) | payer MEDICAID ==
[2019-08-25 23:11] LABS: HEMOGLOBIN 13.6 g/dL (13.5-17.0); MEAN CORPUSCULAR HEMOGLOBIN 26.7 pg (27.0-33.4); MEAN CORPUSCULAR HGB CONC 33.9 g/dL (32.0-36.0); MEAN CORPUSCULAR VOLUME 79 fl (80-97); PLATELET COUNT 240 10^3/uL (150-450); RED BLOOD COUNT 5.09 10^6/uL (4.35-5.55); RED CELL DISTRIBUTION WIDTH 18.3 % (11.5-14.0); WHITE BLOOD COUNT 15.3 10^3/uL (4.0-10.5)
--- NOTE | 2019-08-25 23:19 | ER Document Report ---
ED General - General Chief Complaint: General Weakness Stated Complaint: FALL Time Seen by Provider: 08/25/19 22:45 Primary Care Provider: JP MENDES MD [Primary Care Provider] - Follow up as needed Mode of Arrival: Ambulatory Information source: Patient Notes: 58-year-old man presents to the emergency department with a history of a fall at home. He states that he tripped and fell to the floor, he was unable to get up, his mother called an ambulance and they brought him to the emergency department patient denies any injury or pain. He is a smoker, history of COPD CHF, morbidly obese and on home O2. TRAVEL OUTSIDE OF THE [place] IN LAST 30 DAYS: No - Related Data Allergies/Adverse Reactions: adhesive [Adhesive] Allergy (Verified 08/14/19 09:40) pseudoephedrine HCl [From Sudafed] Allergy (Verified 08/14/19 09:40) Past Medical History - Social History Smoking Status: Current Every Day Smoker Chew tobacco use (# tins/day): No Frequency of alcohol use: None Drug Abuse: None Family History: Reviewed & Not Pertinent Patient has homicidal ideation: No - Past Medical History Cardiac Medical History: Reports: Hx Congestive Heart Failure, Hx Hyperch olesterolemia Pulmonary Medical History: Reports: Hx COPD, Hx Pneumonia, Hx Respiratory Failure - Secondary pulmonary hypertension Denies: Hx Tuberculosis Neurological Medical History: Denies: Hx Seizures Endocrine Medical History: Reports: Hx Diabetes Mellitus Type 2 Renal/ Medical History: Denies: Hx Peritoneal Dialysis GI Medical History: Denies: Hx Cirrhosis, Hx Ulcerative Colitis Musculoskeletal Medical History: Reports Hx Arthritis, Reports Hx Muscle Weakness, Reports Hx Musculoskeletal Deformity, Reports Hx Musculoskeletal Trauma Psychiatric Medical History: Reports: Hx Anxiety, Hx Depression Infectious Medical History: Denies: Hx HIV Past Surgical History: Reports: Hx Abdominal Surgery - hernia repair, Hx Appendectomy, Hx Cholecystectomy, Hx Herniorrhaphy. Denies: Hx Pacemaker - Immunizations Immunizations up to date: Yes Hx Diphtheria, Pertussis, Tetanus Vaccination: Yes Review of Systems - Review of Systems Notes: Constitutional: Negative for fever. HENT: Negative for sore throat. Eyes: Negative for visual changes. Cardiovascular: Negative for chest pain. Respiratory: Negative for shortness of breath. Gastrointestinal: Negative for abdominal pain, vomiting or diarrhea. Genitourinary: Negative for dysuria. Musculoskeletal: Negative for back pain. Skin: Negative for rash. Neurological: Negative for headaches, weakness or numbness. 10 point ROS negative except as marked above and in HPI. Physical Exam - Vital signs Vitals: Resp 19 08/25/19 22:23 - Notes Notes: PHYSICAL EXAMINATION: Physical Exam: General: Mildly obese 58-year-old man in no acute distress, using nasal cannula O2 HEENT: NC/AT, pupils equal round and reactive to light, MM moist,nares clear, oropharynx clear, airway patent, nasal cannula O2 in place Neck: supple, no adenopathy, no masses. Good range of motion Lungs: clear, no wheezing, no rales no rhonchi CVS: Regular rate and rhythm no murmur gallop or rub Abdomen: Soft, active, nontender, no masses, no hepatosplenomegaly Ext: No edema, clubbing or cyanosis. Neuro: Alert and responsive, moving all 4 extremities on command, cranial nerves intact, no focal findings Skin: Intact no open lesions, no rash Course - Re-evaluation Re-evalutation: 08/25/19 23:18 Accidental fall with no injury, home O2 use and chronic CHF and COPD. Sent to the emergency department for evaluation after mechanical fall at home. Patient denies injury or pain. States he is not sure why he was sent to the emergency department. Review of the laboratory data during this emergency department visit reveals the patient is in acute renal failure with creatinine of 4.68 and a BUN of 70. His potassium was noted to be 6.0 with a sodium of 129.5. 08/26/19 00:36 He was recently hospitalized at [facility] and discharged on 08/22 2019, transfer center was current contacted and Dr. Goodman has accepted patient in transfer to Dr. Chaves's service. Patient is hemodynamically stable, acute hyperkalemia treatment measures with 8 units of regular Humulin dextrose 25 g and 30 g of Kayexalate p.o. I explained to the patient that he will need to be transferred given his acute renal findings and there are no available nephrology services at [facility] this weekend. Patient is in agreement with the plan for transfer. - Vital Signs Vital signs: Temp Pulse Resp BP Pulse Ox 98.0 F 19 08/25/19 22:28 08/25/19 22:23 - Laboratory Result Diagrams: 08/25/19 22:58 08/25/19 22:58 Laboratory results interpreted by me: 08/25/19 08/25/19 08/25/19 22:58 22:58 22:58 WBC 15.3 H MCV 79 L MCH 26.7 L RDW 18.3 H Band Neutrophils % 2 L Abs Neuts (Manual) 11.2 H Sodium 129.5 L Potassium 6.0 H* Chloride 94 L BUN 70 H Creatinine 4.68 H Est GFR ( Amer) 16 L Est GFR (MDRD) Non-Af 13 L AST 103 H Alkaline Phosphatase 129 H NT-Pro-B Natriuret Pep 149 H - Diagnostic Test Radiology reviewed: Image reviewed, Reports reviewed - EKG Interpretation by Me EKG shows normal: Sinus rhythm - Rate of 83, left anterior fascicular block, low voltage in the frontal leads and nonspecific T wave abnormalities are noted, no peak T waves. Critical Care Note - Critical Care Note Total time excluding time spent on procedures (mins): 45 - Critical care macro Discharge - Discharge Clinical Impression: Hyperkalemia, Hyponatremia, On home O2, Morbid (severe) obesity due to excess calories Acute renal failure Qualifiers: Acute renal failure type: unspecified Qualified Code(s): N17.9 - Acute kidney failure, unspecified Chronic respiratory failure Qualifiers: Respiratory failure complication: unspecified whether with hypoxia or hypercapnia Qualified Code(s): J96.10 - Chronic respiratory failure, unspecified whether with hypoxia or hypercapnia Condition: Good Disposition: [facility] Referrals: JP MENDES MD [Primary Care Provider] - Follow up as needed
[2019-08-25 23:27] LABS: ALBUMIN 3.8 g/dL (3.5-5.0); ALKALINE PHOSPHATASE 129 U/L (38-126); ANION GAP 13 (5-19); ASPARTATE AMINO TRANSFERASE 103 U/L (17-59); BILIRUBIN,TOTAL 0.6 mg/dL (0.2-1.3); BLOOD UREA NITROGEN 70 mg/dL (7-20); CALCIUM 9.2 mg/dL (8.4-10.2); CARBON DIOXIDE 23 mmol/L (22-30); CHLORIDE 94 mmol/L (98-107); GLUCOSE 102 mg/dL (75-110); TOTAL PROTEIN 6.8 g/dL (6.3-8.2)
[2019-08-25 23:28] LABS: ALCOHOL < 10 mg/dL (NONE DETECTED)
[2019-08-25 23:34] LABS: ABSOLUTE LYMPHOCYTES# (MANUAL) 2.9 10^3/uL (0.5-4.7); ABSOLUTE MONOCYTES # (MANUAL) 1.2 10^3/uL (0.1-1.4); ANISOCYTOSIS 1+; BAND NEUTROPHILS % (MANUAL) 2 % (3-5); BASOPHILS % (MANUAL) 0 % (0-2); EOSINOPHILS % (MANUAL) 0 % (0-6); LYMPHOCYTES % (MANUAL) 19 % (13-45); MONOCYTES % (MANUAL) 8 % (3-13); PLATELET COMMENT ADEQUATE; POLYCHROMASIA 1+; SEGMENTED NEUTROPHILS % (MAN) 71 % (42-78); TOTAL CELLS COUNTED 100
[2019-08-25] MEDS ORDERED: DEXTROSE 50%-WATER 25 GM/50 ML DISP.SYRIN IV ONE (23:44)
[2019-08-25] MEDS ORDERED: INSULIN REG, HUMAN 100 UNIT/ML 3 ML VIAL (PYX) IV ONE (23:44)
[2019-08-25] MEDS ORDERED: SODIUM POLYSTYRENE SULFONATE 15 GM/60 ML PO ONE (23:44)
--- NOTE | 2019-08-26 01:01 | RADIOLOGY REPORT (SQ) ---
CLINICAL INDICATION: Shortness of breath. TECHNIQUE: A single portable AP view was obtained of the chest at 0024 hours. COMPARISON: July 12, 2019. FINDINGS: The cardiomediastinal silhouette is enlarged but stable. The lungs again demonstrate crowding at the bases. No consolidation. No adverse change. No significant pleural fluid. No pneumothorax. The visualized bones are unremarkable. IMPRESSION: No evidence of active intrathoracic disease. Chronic change, no adverse change
[2019-08-26 02:55] VITALS: BP 99/55
--- NOTE | 2019-08-26 08:46 | EKG REPORT ---
SEVERITY:- ABNORMAL ECG - SINUS RHYTHM LEFT ANTERIOR FASCICULAR BLOCK LOW VOLTAGE IN FRONTAL LEADS NONSPECIFIC T ABNORMALITIES, ANTERIOR LEADS : Confirmed by: Brannon Bella MD 26-Aug-2019 08:45:30
== END 2019-08-26 03:13 | disposition short-term general hospital (02) ==
LOC: ER 22:20
DX: E87.5 Hyperkalemia (principal); E87.1 Hypo-osmolality and hyponatremia; N17.9 Acute kidney failure, unspecified; J96.10 Chronic respiratory failure, unspecified whether with hypoxia or hypercapnia; R53.1 Weakness; W01.0XXA Fall on same level from slipping, tripping and stumbling without subsequent striking against object, initial encounter; Y92.009 Unspecified place in unspecified non-institutional (private) residence as the place of occurrence of the external cause; F17.200 Nicotine dependence, unspecified, uncomplicated; J44.9 Chronic obstructive pulmonary disease, unspecified; I50.9 Heart failure, unspecified; E66.01 Morbid (severe) obesity due to excess calories; E78.00 Pure hypercholesterolemia, unspecified; E11.9 Type 2 diabetes mellitus without complications; Z99.81 Dependence on supplemental oxygen; Z90.49 Acquired absence of other specified parts of digestive tract
CPT/HCPCS: 93005; 99291; 96374; 36415; 82962; 80307; 83735; 85025; 80053; 83880; 71045; 93010; J3490 ×2; J1815

== ENCOUNTER 2019-12-17 20:34 | Emergency (ER) | payer MEDICAID ==
[2019-12-17 20:49] VITALS: BP 120/90
--- NOTE | 2019-12-17 20:57 | ER Document Report ---
ED Medical Screen (RME) - General Chief Complaint: Arm Pain Stated Complaint: ARM INJURY Time Seen by Provider: 12/17/19 20:52 Primary Care Provider: JP MENDES MD [Primary Care Provider] - Follow up as needed Mode of Arrival: Wheelchair Information source: Patient Notes: Patient states that he was walking out of his front door and then fell down his stairs. Patient does not know what caused him to fall, stating that he just fell. Patient states that he did not lose consciousness and was awake although had an unprotected fall landing with his arm under him. Patient complains of right wrist tenderness with deformity. Patient denies any headache or chest pain. Patient does have a history of CHF and COPD. I have greeted and performed a rapid initial assessment of this patient. A comprehensive ED assessment and evaluation of the patient, analysis of test results and completion of the medical decision making process will be conducted by additional ED providers. TRAVEL OUTSIDE OF THE [place] IN LAST 30 DAYS: No - Related Data Allergies/Adverse Reactions: adhesive [Adhesive] Allergy (Verified 08/14/19 09:40) pseudoephedrine HCl [From Sudafed] Allergy (Verified 08/14/19 09:40) Past Medical History - Past Medical History Cardiac Medical History: Reports: Hx Congestive Heart Failure, Hx Hypercholesterolemia Pulmonary Medical History: Reports: Hx COPD, Hx Pneumonia, Hx Respiratory Failure - Secondary pulmonary hypertension Denies: Hx Tuberculosis Neurological Medical History: Denies: Hx Seizures Endocrine Medical History: Reports: Hx Diabetes Mellitus Type 2 Renal/ Medical History: Denies: Hx Peritoneal Dialysis GI Medical History: Denies: Hx Cirrhosis, Hx Ulcerative Colitis Musculoskeltal Medical History: Reports Hx Arthritis, Reports Hx Muscle Weakness, Reports Hx Musculoskeletal Deformity, Reports Hx Musculoskeletal Trauma Psychiatric Medical History: Reports: Hx Anxiety, Hx Depression Infectious Medical History: Denies: Hx HIV Past Surgical History: Reports: Hx Abdominal Surgery - hernia repair, Hx Appendectomy, Hx Cholecystectomy, Hx Herniorrhaphy. Denies: Hx Pacemaker - Immunizations Immunizations up to date: Yes Hx Diphtheria, Pertussis, Tetanus Vaccination: Yes Physical Exam - Vital signs Vitals: Temp Pulse Resp BP Pulse Ox 98.1 F 110 H 22 H 120/90 H 92 12/17/19 20:38 12/17/19 20:38 12/17/19 20:38 12/17/19 20:38 12/17/19 20:38 - General General appearance: Alert Notes: Patient with slow deliberate speech, positive deformity to right wrist - Cardiovascular Rhythm: Regular Heart sounds: S1 appreciated, S2 appreciated Course - Vital Signs Vital signs: Temp Pulse Resp BP Pulse Ox 98.1 F 110 H 22 H 120/90 H 92 12/17/19 20:38 12/17/19 20:38 12/17/19 20:38 12/17/19 20:38 12/17/19 20:38 Doctor's Discharge - Discharge Referrals: JP MENDES MD [Primary Care Provider] - Follow up as needed
[2019-12-17 21:27] LABS: ABSOLUTE BASOPHILS # (AUTO) 0.1 10^3/uL (0.0-0.2); ABSOLUTE EOSINOPHILS # (AUTO) 0.1 10^3/uL (0.0-0.6); ABSOLUTE LYMPHOCYTES (AUTO) 2.1 10^3/uL (0.5-4.7); ABSOLUTE MONOCYTES (AUTO) 1.3 10^3/uL (0.1-1.4); BASOPHILS % (AUTO) 0.8 % (0-2); EOSINOPHILS % (AUTO) 0.4 % (0-6); HEMOGLOBIN 15.4 g/dL (13.5-17.0); LYMPHOCYTES % (AUTO) 15.7 % (13-45); MEAN CORPUSCULAR HEMOGLOBIN 29.2 pg (27.0-33.4); MEAN CORPUSCULAR HGB CONC 33.5 g/dL (32.0-36.0); MEAN CORPUSCULAR VOLUME 87 fl (80-97); MONOCYTES % (AUTO) 9.4 % (3-13); PLATELET COUNT 282 10^3/uL (150-450); RED BLOOD COUNT 5.28 10^6/uL (4.35-5.55); RED CELL DISTRIBUTION WIDTH 14.2 % (11.5-14.0); SEGMENTED NEUTROPHILS % (AUTO) 73.7 % (42-78); TOTAL CELLS COUNTED % (AUTO) 100 %; WHITE BLOOD COUNT 13.6 10^3/uL (4.0-10.5)
[2019-12-17 21:50] LABS: ALBUMIN 4.2 g/dL (3.5-5.0); ALKALINE PHOSPHATASE 103 U/L (38-126); ANION GAP 10 (5-19); ASPARTATE AMINO TRANSFERASE 25 U/L (17-59); BILIRUBIN,DIRECT 0.4 mg/dL (0.0-0.4); BILIRUBIN,TOTAL 0.5 mg/dL (0.2-1.3); BLOOD UREA NITROGEN 15 mg/dL (7-20); CALCIUM 9.2 mg/dL (8.4-10.2); CARBON DIOXIDE 29 mmol/L (22-30); CHLORIDE 99 mmol/L (98-107); GLUCOSE 132 mg/dL (75-110); POTASSIUM 3.4 mmol/L (3.6-5.0); TOTAL PROTEIN 7.4 g/dL (6.3-8.2)
--- NOTE | 2019-12-17 22:04 | RADIOLOGY REPORT (SQ) ---
AP Portable chest: 12/17/2019 9:03 PM CDT History: 59-year old patient with fall. Comparison: Chest radiograph from 08/26/2019 Findings: The cardiomediastinal silhouette is normal in size. No pneumothorax is seen. There are linear bibasilar airspace opacities noted within the lung bases. There is blunting of both costophrenic angles, suggestive of trace effusions. Impression: Bibasilar airspace opacities may reflect atelectasis or infection.
--- NOTE | 2019-12-17 22:04 | RADIOLOGY REPORT (SQ) ---
Right wrist radiographs: 12/17/2019 9:02 PM CDT TECHNIQUE: AP, lateral, internal and external oblique images of the right wrist were obtained. COMPARISON: None available HISTORY: 59-year-old patient with right wrist pain, fall. FINDINGS: There is an acute, impacted fractures of the distal right radius and ulnar styloid. No other fractures are seen. The radial fracture has been an intra-articular extension. The apex bases and in a palmar direction. There is loss of the normal volar angulation of the wrist. IMPRESSION: There is an acute, impacted fractures of the right radius with an intra-articular extension and an ulnar styloid fracture.
[2019-12-17 22:11] LABS: ALCOHOL < 10 mg/dL (NONE DETECTED)
--- NOTE | 2019-12-18 00:17 | RADIOLOGY REPORT (SQ) ---
EXAM DESCRIPTION: Noncontrast CT head CLINICAL HISTORY: 59 years Male fall/trauma TECHNIQUE: Noncontrast CT head. All CT scans at this facility use dose modulation, iterative reconstruction, and/or weight based dosing when appropriate to reduce radiation dose to as low as reasonably achievable. COMPARISON: None. FINDINGS: Exam is mildly technically limited by motion artifact. Abdul matter, white matter, ventricles, and cisterns are within normal limits. No acute hemorrhage or mass effect. Visualized portions of paranasal sinuses and mastoids are clear. Visualized portions of the calvarium are within normal limits. IMPRESSION: 1. No acute intracranial findings.
--- NOTE | 2019-12-18 00:32 | ER Document Report ---
ED General - General Chief Complaint: Arm Pain Stated Complaint: ARM INJURY Time Seen by Provider: 12/17/19 20:52 Primary Care Provider: JP MENDES MD [Primary Care Provider] - Follow up as needed Mode of Arrival: Wheelchair Information source: Patient TRAVEL OUTSIDE OF THE [place] IN LAST 30 DAYS: No - HPI Notes: Patient presents complaining of right wrist pain. He states he fell off of a porch just before arrival. He states he hit his head but does not have any head pain at this time. He also landed on his right arm and complains of right wrist pain. The pain radiates up his arm. Is moderate in intensity. Sharp. Is worse with movement and better with rest. He denies any other type of injury. - Related Data Allergies/Adverse Reactions: adhesive [Adhesive] Allergy (Verified 08/14/19 09:40) pseudoephedrine HCl [From Sudafed] Allergy (Verified 08/14/19 09:40) Past Medical History - General Information source: Patient - Social History Smoking Status: Current Every Day Smoker Frequency of alcohol use: None Drug Abuse: None Family History: Reviewed & Not Pertinent - Past Medical History Cardiac Medical History: Reports: Hx Congestive Heart Failure, Hx Hypercholesterolemia Pulmonary Medical History: Reports: Hx COPD, Hx Pneumonia, Hx Respiratory Failure - Secondary pulmonary hypertension Denies: Hx Tuberculosis Neurological Medical History: Denies: Hx Seizures Endocrine Medical History: Reports: Hx Diabetes Mellitus Type 2 Renal/ Medical History: Denies: Hx Peritoneal Dialysis GI Medical History: Denies: Hx Cirrhosis, Hx Ulcerative Colitis Musculoskeletal Medical History: Reports Hx Arthritis, Reports Hx Muscle Weakness, Reports Hx Musculoskeletal Deformity, Reports Hx Musculoskeletal Trauma Psychiatric Medical History: Reports: Hx Anxiety, Hx Depression Infectious Medical History: Denies: Hx HIV Past Surgical History: Reports: Hx Abdominal Surgery - hernia repair, Hx Appendectomy, Hx Cholecystectomy, Hx Herniorrhaphy. Denies: Hx Pacemaker - Immunizations Immunizations up to date: Yes Hx Diphtheria, Pertussis, Tetanus Vaccination: Yes Review of Systems - Review of Systems Constitutional: denies: Chills, Fever Cardiovascular: denies: Chest pain, Palpitations Respiratory: denies: Cough, Short of breath -: Yes All other systems reviewed and negative Physical Exam - Vital signs Vitals: Temp Pulse Resp BP Pulse Ox 98.1 F 110 H 22 H 120/90 H 92 12/17/19 20:38 12/17/19 20:38 12/17/19 20:38 12/17/19 20:38 12/17/19 20:38 Interpretation: Normal - General General appearance: Appears well, Alert - HEENT Head: Normocephalic, Atraumatic Eyes: Normal Pupils: PERRL - Respiratory Respiratory status: No respiratory distress Chest status: Nontender Breath sounds: Decreased air movement, Rhonchi Chest palpation: Normal - Cardiovascular Rhythm: Regular Heart sounds: Normal auscultation Murmur: No - Abdominal Inspection: Normal Distension: No distension Bowel sounds: Normal Tenderness: Nontender Organomegaly: No organomegaly - Back Back: Normal, Nontender - Extremities General upper extremity: Other - Left upper extremity exam is unremarkable. Right upper extremity exam shows a tender deformed swollen right wrist. The right wrist has decreased range of motion. He does have a 2+ radial pulse on the right. He has normal capillary refill in all fingers of the right hand. He can flex and extend all fingers on the right hand. The exam is consistent with a wrist fracture. General lower extremity: Normal inspection, Nontender, Normal color, Normal ROM, Normal temperature, Normal weight bearing. No: Herman's sign - Neurological Neuro grossly intact: Yes Cognition: Normal Orientation: AAOx4 Pasha Coma Scale Eye Opening: Spontaneous Pasha Coma Scale Verbal: Oriented Pasha Coma Scale Motor: Obeys Commands Kennan Coma Scale Total: 15 Speech: Normal Motor strength normal: LUE, RUE, LLE, RLE Sensory: Normal - Psychological Associated symptoms: Normal affect, Normal mood - Skin Skin Temperature: Warm Skin Moisture: Dry Course - Re-evaluation Re-evalutation: 12/18/19 00:29 Patient fell off of a porch hit his head and wrist. Head CT is unremarkable. Extremity x-ray shows a distal impacted radius fracture as well and ulnar styloid fracture there is no need for emergent reduction is patient is neurovascularly intact. I will splint the patient and refer him to orthopedics. Patient had splint placed. I then waited on CT scan which came back unremarkable. I finished the patient's discharge instructions and went into the room to discuss them with him and he was not in the room. His nurse states that she did not see him leave. Apparently he left the emergency department without notifying any of the personnel. At this time we will try to reach him by phone so I can appropriately discuss his chest x-ray findings as well as make sure he understands his orthopedic follow-up. 12/18/19 00:37 - Vital Signs Vital signs: Temp Pulse Resp BP Pulse Ox 98.1 F 110 H 22 H 120/90 H 92 12/17/19 20:38 12/17/19 20:38 12/17/19 20:38 12/17/19 20:38 12/17/19 20:38 - Laboratory Result Diagrams: 12/17/19 21:13 12/17/19 21:13 Laboratory results interpreted by me: 12/17/19 12/17/19 21:13 21:13 WBC 13.6 H RDW 14.2 H Absolute Neuts (auto) 10.0 H Potassium 3.4 L Glucose 132 H - Diagnostic Test Radiology reviewed: Image reviewed, Reports reviewed Procedures - Immobilization Right Wrist Time completed: 00:30 Pre-Proc Neuro Vasc Exam: Normal Immobilizer type: Cock-up Performed by: RN Post-Proc Neuro Vasc Exam: Normal Alignment checked and good: No - Patient has distal impacted radius fracture unchanged Discharge - Discharge Clinical Impression: Distal radial fracture Qualifiers: Encounter type: initial encounter Fracture type: closed Fracture morphology: other intra-articular Laterality: right Qualified Code(s): S52.571A - Other in traarticular fracture of lower end of right radius, initial encounter for closed fracture Fracture of ulnar styloid Qualifiers: Encounter type: initial encounter Fracture type: closed Fracture alignment: displaced Laterality: right Qualified Code(s): S52.611A - Displaced fracture of right ulna styloid process, initial encounter for closed fracture Condition: Stable Disposition: HOME, SELF-CARE Instructions: Fractured Radius and Ulna ([facility]) Additional Instructions: Please call Dr. Rodríguez or an orthopedist you prefer as soon as possible to a rrange follow up. You may remove splint to bathe or shower but please wear it the rest of the time Prescriptions: Hydrocodone/Acetaminophen [[place] 5-325 mg Tablet] 1 tab PO Q6 PRN 3 Days #12 tablet PRN Reason: Forms: Return to Work Referrals: ABDULAZIZ RODRÍGUEZ DO [ACTIVE STAFF] - Follow up in 3-5 days
--- NOTE | 2019-12-18 00:47 | EKG REPORT ---
SEVERITY:- ABNORMAL ECG - SINUS RHYTHM LEFT ANTERIOR FASCICULAR BLOCK CONSIDER RVH W/ SECONDARY REPOL ABNORMALITY : Confirmed by: Yanira Child MD 18-Dec-2019 00:46:32
== END 2019-12-18 00:57 | disposition home or self-care (01) ==
LOC: ER 20:34
PROC: 2W3CX1Z Immobilization of Right Lower Arm using Splint (ICD-10-PCS; principal; 2019-12-17)
DX: S52.571A Other intraarticular fracture of lower end of right radius, initial encounter for closed fracture (principal); S52.611A Displaced fracture of right ulna styloid process, initial encounter for closed fracture; M25.531 Pain in right wrist; M79.601 Pain in right arm; W17.89XA Other fall from one level to another, initial encounter; Z88.8 Allergy status to other drugs, medicaments and biological substances; F17.200 Nicotine dependence, unspecified, uncomplicated; I50.9 Heart failure, unspecified; J44.9 Chronic obstructive pulmonary disease, unspecified; E11.9 Type 2 diabetes mellitus without complications
CPT/HCPCS: 36415; 70450; 71045; 80053; 80307; 84484; 85025; 93005; 93010; 99285

== ENCOUNTER 2020-01-01 11:00 | Inpatient (IN) | payer MEDICAID ==
[2020-01-01 11:38] LABS: ABSOLUTE EOSINOPHILS # (AUTO) 0.1 10^3/uL (0.0-0.6); ABSOLUTE LYMPHOCYTES (AUTO) 1.3 10^3/uL (0.5-4.7); ABSOLUTE MONOCYTES (AUTO) 0.7 10^3/uL (0.1-1.4); ABSOLUTE NEUT (AUTO) 5.3 10^3/uL (1.7-8.2); BASOPHILS % (AUTO) 0.5 % (0-2); EOSINOPHILS % (AUTO) 1.1 % (0-6); HEMATOCRIT 39.1 % (37.9-51.0); HEMOGLOBIN 13.2 g/dL (13.5-17.0); MEAN CORPUSCULAR HEMOGLOBIN 29.8 pg (27.0-33.4); MEAN CORPUSCULAR HGB CONC 33.8 g/dL (32.0-36.0); MEAN CORPUSCULAR VOLUME 88 fl (80-97); MONOCYTES % (AUTO) 9.2 % (3-13); PLATELET COUNT 253 10^3/uL (150-450); RED BLOOD COUNT 4.44 10^6/uL (4.35-5.55); RED CELL DISTRIBUTION WIDTH 14.9 % (11.5-14.0); SEGMENTED NEUTROPHILS % (AUTO) 71.2 % (42-78); TOTAL CELLS COUNTED % (AUTO) 100 %; WHITE BLOOD COUNT 7.5 10^3/uL (4.0-10.5)
[2020-01-01 11:58] LABS: ALBUMIN 3.6 g/dL (3.5-5.0); ALKALINE PHOSPHATASE 115 U/L (38-126); ANION GAP 9 (5-19); ASPARTATE AMINO TRANSFERASE 18 U/L (17-59); BILIRUBIN,DIRECT 0.3 mg/dL (0.0-0.4); BILIRUBIN,TOTAL 0.5 mg/dL (0.2-1.3); BLOOD UREA NITROGEN 9 mg/dL (7-20); CALCIUM 9.2 mg/dL (8.4-10.2); CARBON DIOXIDE 31 mmol/L (22-30); CHLORIDE 101 mmol/L (98-107); GLUCOSE 105 mg/dL (75-110); POTASSIUM 3.7 mmol/L (3.6-5.0); TOTAL PROTEIN 6.3 g/dL (6.3-8.2)
--- NOTE | 2020-01-01 12:55 | ER Document Report ---
ED Extremity Problem, Lower - General Chief Complaint: Leg Swelling Stated Complaint: DIRECT ADMIT Time Seen by Provider: 01/01/20 12:38 Notes: Patient is a 59-year-old male with past medical history of congestive heart failure, COPD, obesity, and pneumonia who presents the emergency department with a direct admission to Dr. Garcia's service. Patient states that he has had lower extremity swelling and it is hard for him to walk around. Patient reports shortness of breath on exertion. TRAVEL OUTSIDE OF THE [place] IN LAST 30 DAYS: No - Related Data Allergies/Adverse Reactions: adhesive [Adhesive] Allergy (Verified 08/14/19 09:40) pseudoephedrine HCl [From Sudafed] Allergy (Verified 08/14/19 09:40) furosemide [From Lasix] Adverse Reaction (Verified 01/01/20 11:36) Past Medical History - Social History Smoking Status: Current Every Day Smoker Frequency of alcohol use: None Drug Abuse: Marijuana Family History: Reviewed & Not Pertinent - Past Medical History Cardiac Medical History: Reports: Hx Congestive Heart Failure, Hx Hypercholesterolemia Pulmonary Medical History: Reports: Hx COPD, Hx Pneumonia, Hx Respiratory Failure - Secondary pulmonary hypertension Denies: Hx Tuberculosis Neurological Medical History: Denies: Hx Seizures Endocrine Medical History: Reports: Hx Diabetes Mellitus Type 2 Renal/ Medical History: Denies: Hx Peritoneal Dialysis GI Medical History: Denies: Hx Cirrhosis, Hx Ulcerative Colitis Musculoskeletal Medical History: Reports Hx Arthritis, Reports Hx Muscle Weakness, Reports Hx Musculoskeletal Deformity, Reports Hx Musculoskeletal Trauma Psychiatric Medical History: Reports: Hx Anxiety, Hx Depression Infectious Medical History: Denies: Hx HIV Past Surgical History: Reports: Hx Abdominal Surgery - hernia repair, Hx Appendectomy, Hx Cholecystectomy, Hx Herniorrhaphy. Denies: Hx Pacemaker - Immunizations Immunizations up to date: Yes Hx Diphtheria, Pertussis, Tetanus Vaccination: Yes Review of Systems - Review of Systems Notes: REVIEW OF SYSTEMS: CONSTITUTIONAL : Denies recent illness. Denies recent unintentional weight loss. Denies fever, chills, or sweats. EENT: Denies eye, ear, throat, or mouth pain, discharge, or symptoms. Denies nasal or sinus congestion. CARDIOVASCULAR: Denies chest pain. RESPIRATORY: See HPI. GASTROINTESTINAL: Denies nausea, vomiting, and diarrhea. Denies abdominal pain. Denies constipation. GENITOURINARY: Denies difficulty urinating, burning, blood in urine, urgency or frequency. MUSCULOSKELETAL: Denies neck and back pain. See HPI. SKIN: See HPI. HEMATOLOGIC : Denies easy bruising or bleeding. LYMPHATIC: Denies swollen, painful, enlarged glands. NEUROLOGICAL: Denies no numbness or tingling denies weakness. Denies headache. Denies altered mental status. Denies alteration in speech. PSYCHIATRIC: Denies stress, anxiety, alteration in sleep patterns, or depression. All other systems reviewed and negative. Physical Exam - Vital signs Vitals: Temp BP Pulse Ox 98.3 F 163/101 H 93 01/01/20 11:00 01/01/20 11:00 01/01/20 11:00 - Notes Notes: PHYSICAL EXAMINATION: GENERAL: Appears well, healthy, well-nourished, no acute distress. HEAD: Normocephalic, atraumatic. EYES: PERRL, conjunctiva normal, all extraocular movements intact, sclera nonicteric ENT: Moist mucous membranes. NECK: Supple, no noticeable swelling, redness, rash. Normal range of motion. LUNGS: Diminished breath sounds with expiratory wheezes throughout all lung whaley. CARDIOVASCULAR: S1-S2, regular rate, regular rhythm. Radial pulses 2+, normal. ABDOMEN: Normoactive bowel sounds. Soft, nontender, no guarding, no rebound tenderness, and no masses palpated. EXTREMITIES: 3+ pitting edema. No cyanosis. NEUROLOGICAL: Moves all extremities upon command. Strength 5/5 in all extremities. PSYCH: Normal mood, normal affect. SKIN: Warm, dry. Erythema noted to feet. Very dry skin noted to dorsal area of feet. Course - Re-evaluation Re-evalutation: 01/01/20 13:11 Hematology is unremarkable. No leukocytosis noted. There is a slight anemia with a hemoglobin of 13.2. Chemistries are also unremarkable. BNP is 1190. No tified Dr. Garcia of this value. Patient will be direct admitted to Dr. Garcia service to [facility]. I also ordered a chest x-ray and an albuterol nebulizer, as the patient had expiratory wheezes in all lung whaley during my exam. Patient was up in bed and eating. Patient stated that he wanted to have a smoke. We will also order him a nicotine patch. - Vital Signs Vital signs: Temp Pulse Resp BP Pulse Ox 98.3 F 14 163/101 H 94 01/01/20 11:00 01/01/20 11:01 01/01/20 11:00 01/01/20 11:01 - Laboratory Result Diagrams: 01/01/20 11:20 01/01/20 11:20 Laboratory results interpreted by me: 01/01/20 01/01/20 01/01/20 11:20 11:20 11:20 Hgb 13.2 L RDW 14.9 H Carbon Dioxide 31 H NT-Pro-B Natriuret Pep 1190 H Discharge - Discharge Clinical Impression: CHF (congestive heart failure) Qualifiers: Heart failure type: unspecified Heart failure chronicity: unspecified Qualified Code(s): I50.9 - Heart failure, unspecified Cellulitis Qualifiers: Site of cellulitis: extremity Site of cellulitis of extremity: lower extremity Laterality: unspecified laterality Qualified Code(s): L03.119 - Cellulitis of unspecified part of limb Condition: Stable Disposition: ADMITTED INPATIENT Admitting Provider: Radha Unit Admitted: [facility]
[2020-01-01] MEDS ORDERED: ALBUTEROL SULFATE 0.083% NEB 2.5 MG/3 ML AMPUL NEB ONE (13:01)
[2020-01-01] MEDS ORDERED: NICOTINE 14 MG/24 HR PATCH.TD24 TD PRN (13:12)
[2020-01-01] MEDS: ENOXAPARIN SODIUM INJ 40 MG/0.4 ML DISP.SYRIN SUBCUT SCH (13:14)
[2020-01-01] MEDS: CLINDAMYCIN 300 MG/D5W RTU 300 MG/50 ML RTUPB IV SCH (13:16)
--- NOTE | 2020-01-01 14:31 | RADIOLOGY REPORT (SQ) ---
EXAM DESCRIPTION: CHEST 2 VIEWS IMAGES COMPLETED DATE/TIME: 01/01/2020 2:17 pm REASON FOR STUDY: shortness of breath COMPARISON: 12/17/2019 EXAM PARAMETERS: NUMBER OF VIEWS: two views TECHNIQUE: Digital Frontal and Lateral radiographic views of the chest acquired. RADIATION DOSE: NA LIMITATIONS: none FINDINGS: LUNGS AND PLEURA: No focal consolidation. Prominent basilar interstitial opacities. No p leural effusion or pneumothorax. MEDIASTINUM AND HILAR STRUCTURES: No masses or contour abnormalities. HEART AND VASCULAR STRUCTURES: Normal heart size. Vascular calcifications. BONES: No acute findings. HARDWARE: None in the chest. OTHER: No other significant finding. IMPRESSION: Prominent interstitial opacities, possibly mild edema. No focal consolidation. No larg e effusion. TECHNICAL DOCUMENTATION: JOB ID: [id number] 2010 [employer]- All Rights Reserved Reading location - IP/workstation name: [email or web address]
[2020-01-01] MEDS: NORMAL SALINE 250 ML with FUROSEMIDE 250 MG IV PRN ×2 (15:17)
[2020-01-01] MEDS: OXYCODONE-ACETAMINOPHEN 5-325 MG TABLET PO PRN (18:22)
[2020-01-01] MEDS ORDERED: (PENDING PHARMACY ID) (Albuterol Sulfate 2 PUFF) IH PRN (20:29)
[2020-01-01] MEDS ORDERED: (PENDING PHARMACY ID) (Lurasidone Hcl [Latuda] 20 MG) PO SCH (20:30)
[2020-01-01] MEDS ORDERED: ALBUTEROL SULFATE HFA (90 MCG/PUFF) 8 GM MDI IH PRN (20:31)
--- NOTE | 2020-01-01 20:32 | PDOC H&P ---
History of Present Illness Admission Date/PCP: 01/01/20 12:59 JP MENDES MD History of Present Illness: DAVIAN ROY is a 59 year old male, He came to the office today for evalu ation of very severe bilateral lower extremity swelling with painful erythema of both feet. He has a history of severe pulmonary hypertension secondary to COPD ,A stat venous Doppler of the lower extremities was negative for deep vein thrombosisTransthoracic echocardiogram was done, the systolic function of left ventricle was depressed with estimated ejection fraction 45 to 50%, grade 2 diastolic dysfunction the pulmonary pressures not measured on this echocardiogram. Patient continues to engage in high risk behavior including heavy tobacco abuse, he drinks a lot of soda daily, sedentary lifestyle Past Medical History Cardiac Medical History: Reports: Hyperlipidema, Other - Chronic diastolic heart failure Pulmonary Medical History: Reports: Chronic Obstructive Pulmonary Disease (COPD), Pneumonia, Respiratory Failure - Secondary pulmonary hypertension Endocrine Medical History: Reports: Diabetes Mellitus Type 2 GI Medical History: Denies: Cirrhosis, Ulcerative Colitis Musculoskeltal Medical History: Reports: Arthritis Psychiatric Medical History: Reports: Depression Past Surgical History Past Surgical History: Reports: Appendectomy, Cholecystectomy, Herniorrhaphy Social History Smoking Status: Current Every Day Smoker Cigarettes Packs Per Day: 1 Electronic Cigarette use?: No Number of Years Smokin Frequency of Alcohol Use: None Hx Recreational Drug Use: No Drugs: Marijuana Hx Prescription Drug Abuse: No Family History Family History: Reviewed & Not Pertinent Parental Family History Reviewed: Yes Children Family History Reviewed: Yes Sibling(s) Family History Reviewed.: Yes Medication/Allergy Home Medications: Clonazepam [Klonopin 1 mg Tablet] 1 mg PO Q8 02/05/15 Lurasidone HCl [Latuda] 20 mg PO DAILY 02/05/15 Clonidine HCl [Catapres 0.1 mg Tablet] 0.1 mg PO QHS 07/07/19 Hydroxyzine HCl [Atarax 10 mg Tablet] 50 mg PO BID 07/07/19 Pregabalin [Lyrica] 200 mg PO Q12 07/07/19 Albuterol Sulfate [Proair HFA Inhalation Aerosol 8.5 gm MDI] 2 puff IH Q4HP PRN 07/13/19 Fluticasone/Umeclidin/Vilanter [Trelegy 100-62.5-25 Mcg Ellipta 14 Dose/Dpi] 1 puff IH DAILY 01/01/20 Tramadol HCl [Ultram 50 mg Tablet] 50 mg PO BID 01/01/20 Allergies/Adverse Reactions: adhesive [Adhesive] Allergy (Verified 08/14/19 09:40) pseudoephedrine HCl [From Sudafed] Allergy (Verified 08/14/19 09:40) furosemide [From Lasix] Adverse Reaction (Verified 01/01/20 11:36) Review of Systems Constitutional: ABSENT: chills, fever(s), headache(s), weight gain, weight loss Eyes: ABSENT: visual disturbances Ears: ABSENT: hearing changes Cardiovascular: PRESENT: dyspnea on exertion, edema Respiratory: PRESENT: dyspnea Gastrointestinal: ABSENT: abdominal pain, constipation, diarrhea, hematemesis, hematochezia, nausea, vomiting Genitourinary: ABSENT: dysuria, hematuria Musculoskeletal: ABSENT: joint swelling Integumentary: ABSENT: rash, wounds Neurological: ABSENT: abnormal gait, abnormal speech, confusion, dizziness, focal weakness, syncope Psychiatric: ABSENT: anxiety, depression, homidical ideation, suicidal ideation Endocrine: ABSENT: cold intolerance, heat intolerance, menstrual abnormalities, polydipsia, polyuria Hematologic/Lymphatic: ABSENT: easy bleeding, easy bruising, lymphadenopathy Physical Exam Vital Signs: Temp Pulse Resp BP Pulse Ox 97.9 F 66 24 H 156/97 H 92 01/01/20 20:00 01/01/20 20:00 01/01/20 20:00 01/01/20 20:00 01/01/20 20:00 Intake & Output 12/31/19 01/01/20 01/02/20 06:59 06:59 06:59 Intake Total 50 Output Total 200 Balance -150 Weight 131 kg General appearance: PRESENT: obese Eye exam: PRESENT: PERRLA Ear exam: PRESENT: normal external ear exam Mouth exam: PRESENT: moist, tongue midline Neck exam: PRESENT: full ROM Respiratory exam: PRESENT: rhonchi Cardiovascular exam: PRESENT: RRR, +S1, +S2 Vascular exam: PRESENT: normal capillary refill GI/Abdominal exam: PRESENT: normal bowel sounds, soft Rectal exam: PRESENT: deferred Extremities exam: PRESENT: pedal edema Neurological exam: PRESENT: alert, CN II-XII grossly intact Psychiatric exam: PRESENT: appropriate affect, normal mood Results Laboratory Results: 01/01/20 11:20 01/01/20 11:20 01/01/20 01/01/20 01/01/20 11:20 11:20 11:20 WBC 7.5 RBC 4.44 Hgb 13.2 L Hct 39.1 MCV 88 MCH 29.8 MCHC 33.8 RDW 14.9 H Plt Count 253 Seg Neutrophils % 71.2 Sodium 141.2 Potassium 3.7 Chloride 101 Carbon Dioxide 31 H Anion Gap 9 BUN 9 Creatinine 0.80 Est GFR ( Amer) > 60 Glucose 105 Calcium 9.2 Total Bilirubin 0.5 AST 18 Alkaline Phosphatase 115 Total Protein 6.3 Albumin 3.6 Free T4 1.19 01/01/20 11:20 NT-Pro-B Natriuret Pep 1190 H Impressions: Chest X-Ray 01/01/20 13:03 IMPRESSION: Prominent interstitial opacities, possibly mild edema. No focal consolidation. No large effusion. Assessment & Plan - Diagnosis (1) Acute diastolic (congestive) heart failure Is this a current diagnosis for this admission?: Yes Plan: The transthoracic echo suggests grade 2 diastolic dysfunction of the left ventricle, start patient on low-dose furosemide infusion (2) Severe pulmonary arterial systolic hypertension Is this a current diagnosis for this admission?: Yes (3) COPD (chronic obstructive pulmonary disease) Qualifiers: COPD type: unspecified COPD Qualified Code(s): J44.9 - Chronic obstructive pulmonary disease, unspecified Is this a current diagnosis for this admission?: Yes (4) Chronic venous hypertension with inflammation involving both sides Is this a current diagnosis for this admission?: Yes Plan: The painful erythema of the feet is most likely from chronic venous hypertension, there is component of cellulitis, start clindamycin - Time Time Spent: Greater than 70 Minutes Medications reviewed and adjusted accordingly: Yes Anticipated Discharge Disposition: Home, Self Care Anticipated Discharge Timeframe: within 72 hours
[2020-01-01] MEDS: TRAMADOL HCL 50 MG TABLET PO SCH (21:36)
[2020-01-01] MEDS: HYDROXYZINE PAMOATE 50 MG CAPSULE PO SCH (21:36)
[2020-01-01] MEDS: LURASIDONE HCL 40 MG TABLET PO SCH (21:37)
[2020-01-01] MEDS: CLONIDINE HCL 0.1 MG TABLET PO SCH (21:37)
[2020-01-01] MEDS: PREGABALIN 100 MG CAPSULE PO SCH (21:37)
[2020-01-01] MEDS: FLUTICASONE/UMECLIDIN/VILANTER 100-62.5-25 MCG/DOSE IH SCH (21:39)
--- NOTE | 2020-01-01 21:50 | XCELERA REPORT ---
[address] [address] Transthoracic Echocardiogram Report Name: DAVIAN ROY Age: 59 yrs Gender: Male : 1960 Patient Status: Inpatient Patient Location: [address] [place], [place] [address]A Study Date: 01/01/2020 06:38 PM Height: 71 in Weight: 289 lb BSA: 2.5 m2 Procedure: A complete two-dimensional transthoracic echocardiogram was performed (2D, M-mode, spectral and color flow Doppler). The study was technically difficult with many images being suboptimal in quality. Reason For Study: extremity swelling, DVT, CHF Ordering Physician: JP MENDES Performed By: Naya Carrillo Interpretation Summary FINDINGS: technically difficult. LEFT VENTRICLE: LV Systolic function: LVEF is felt to mildly depressed with best estimate being 45 to 50%. LV Diastolic Function: Grade II diastolic dysfunction noted. Wall motion: not all wall segment were well visualised. Regional wall motion cannot be accurately commented upon. Left ventricular chamber size: is within normal limit. Left ventricular wall thickness: is increased indicative of Mild LVH. RIGHT VENTRICLE: RV systolic function: felt to be mildly depressed. Right Ventricle Size: mildly enlarged. LEFT ATRIUM size: is mildly dilated. RIGHT ATRIUM size: is within normal limit. INTER ATRIAL SEPTUM: No definite atrial septal defect noted however a small PFO could be missed. AORTIC ROOT: seems to be within normal limits. ASCENDING AORTA: is not well visualized. INFERIOR VENA CAVA: was not well visualized. VALVES: MITRAL VALVE: Leaflets are mildly thickened. Mobility seems to be within normal limits. Mitral Regurgitation: Trace mitral regurgitation is noted. Mitral Stenosis: No mitral stenosis noted. Mitral valve prolapse: none noted. AORTIC VALVE: all leaflets not well visualised but with mild thickening and adequate excursion. Aortic stenosis: No aortic stenosis noted. Aortic regurgitation: No aortic incompetence noted. TRICUSPID VALVE: mobility and structures within normal limit. Tricuspid stenosis: no tricuspid stenosis noted. Tricuspid regurgitation: Trace tricuspid regurgitation noted. Estimated RVS : cannot be accurately commented upon but possibly at upper limit of normal. PULMONARY VALVE: was not well visualized but no significant abnormalities suspected. Pulmonary stenosis: no pulmonary stenosis noted. Pulmonary regurgitation: no significant pulmonary regurgitation noted. MASSES AND THROMBUS: No definite intracardiac thrombus or masses are noted. PERICARDIUM: No pericardial effusion was noted. IMPRESSION: 1. Mildly depressed LVEF. RV EF mildly depressed. 2. Mild LVH noted. 3. Grade II Diastolic Dysfunction noted. 4. No significant valvular stenosis or regurgitation noted. 5. LA is mildly dilated. RA mildly dilated. RV mildly dilated. 6. Echocardiogram was technically difficult therefore clinical correlation is requested. MMode/2D Measurements & Calculations RVDd: 3.1 cm LVIDd: 5.2 cm FS: 26.5 % Ao root diam: 4.0 cm IVSd: 0.79 cm LVIDs: 3.8 cm EDV(Teich): 128.8 ml Ao root area: 12.5 cm2 LVPWd: 1.2 cm ESV(Teich): 62.5 ml LA dimension: 3.8 cm EF(Teich): 51.5 % Doppler Measurements & Calculations MV E max wilda: MV P1/2t max wilda: Ao V2 max: LV V1 max P.8 cm/sec 83.6 cm/sec 165.6 cm/sec 3.4 mmHg MV A max wilda: MV P1/2t: 108.5 msec Ao max PG: LV V1 max: 104.1 cm/sec MVA(P1/2t): 2.0 cm2 11.0 mmHg 91.8 cm/sec MV E/A: 0.90 MV dec slope: 225.8 cm/sec2 MV dec time: 0.35 sec MV P1/2t-pr_phl: 119.7 msec : JP MENDES Shyamal
[2020-01-01] MEDS ORDERED: (PENDING PHARMACY ID) (Pregabalin [Lyrica] 200 MG) PO SCH (22:00)
[2020-01-01] MEDS ORDERED: HYDROXYZINE HCL 10 MG TABLET PO SCH (22:00)
[2020-01-02] MEDS: CLINDAMYCIN 300 MG/D5W RTU 300 MG/50 ML RTUPB IV SCH ×4 (00:43→21:50)
[2020-01-02] MEDS: OXYCODONE-ACETAMINOPHEN 5-325 MG TABLET PO PRN ×3 (00:43→20:08)
[2020-01-02 01:20] LABS: UR PRO/CREAT RATIO RESULT 0.5 mg/mg (0.0-0.2); URINE CREATININE 27.6 mg/dL (22-328); URINE PROTEIN 12.5 mg/dL (<12)
--- NOTE | 2020-01-02 09:47 | RADIOLOGY REPORT (SQ) ---
EXAM DESCRIPTION: VENOUS BILATERAL LOWER IMAGES COMPLETED DATE/TIME: 01/02/2020 8:36 am REASON FOR STUDY: Lower extremity swelling, chf, dvt COMPARISON: None. TECHNIQUE: Dynamic and static daigle scale and color images acquired of both lower extremity venous sy stems. Selected spectral images acquired with additional compression and augmentation maneuvers. Imag es stored on PACS. LIMITATIONS: None. FINDINGS: RIGHT LEG COMMON FEMORAL AND FEMORAL: Normal phasicity, compression and augmentation. No visualized echogenic m aterial on daigle scale. No defects on color images. POPLITEAL: Normal compression and augmentation. No visualized echogenic material on daigle scale. No de fects on color images. CALF VESSELS: Normal compression and augmentation. No visualized echogenic material on daigle scale. No defects on color image. GSV AND SSV: Normal compression. No visualized echogenic material on daigle scale. No defects on color images. ANY DEEP VENOUS INSUFFICIENCY: Not evaluated. ANY EVIDENCE OF POPLITEAL CYST: No. OTHER: No other significant finding. LEFT LEG COMMON FEMORAL AND FEMORAL: Normal phasicity, compression and augmentation. No visualized echogenic m aterial on daigle scale. No defects on color images. POPLITEAL: Normal compression and augmentation. No visualized echogenic material on daigle scale. No de fects on color images. CALF VESSELS: Normal compression and augmentation. No visualized echogenic material on daigle scale. No defects on color images. GSV AND SSV: Normal compression. No visualized echogenic material on daigle scale. No defects on color images. ANY DEEP VENOUS INSUFFICIENCY: Not evaluated. ANY EVIDENCE POPLITEAL CYST: No. OTHER: No other significant finding. IMPRESSION: NO EVIDENCE DVT OR SVT IN EITHER LEG. TECHNICAL DOCUMENTATION: JOB ID: [id number] 2010 [employer]- All Rights Reserved Reading location - IP/workstation name: [email or web address]
[2020-01-02] MEDS: TRAMADOL HCL 50 MG TABLET PO SCH ×2 (10:25→21:49)
[2020-01-02] MEDS: HYDROXYZINE PAMOATE 50 MG CAPSULE PO SCH ×2 (10:25→21:49)
[2020-01-02] MEDS: PREGABALIN 100 MG CAPSULE PO SCH ×2 (10:25→21:50)
[2020-01-02] MEDS: ENOXAPARIN SODIUM INJ 40 MG/0.4 ML DISP.SYRIN SUBCUT SCH (10:26)
[2020-01-02] MEDS: LURASIDONE HCL 40 MG TABLET PO SCH (10:26)
[2020-01-02] MEDS: FLUTICASONE/UMECLIDIN/VILANTER 100-62.5-25 MCG/DOSE IH SCH (10:26)
[2020-01-02 17:38] LABS: ALBUMIN 3.5 g/dL (3.5-5.0); ALKALINE PHOSPHATASE 117 U/L (38-126); ANION GAP 6 (5-19); ASPARTATE AMINO TRANSFERASE 17 U/L (17-59); BILIRUBIN,DIRECT 0.3 mg/dL (0.0-0.4); BILIRUBIN,TOTAL 0.5 mg/dL (0.2-1.3); BLOOD UREA NITROGEN 9 mg/dL (7-20); CALCIUM 8.5 mg/dL (8.4-10.2); CARBON DIOXIDE 38 mmol/L (22-30); CHLORIDE 95 mmol/L (98-107); GLUCOSE 103 mg/dL (75-110); POTASSIUM 3.7 mmol/L (3.6-5.0); TOTAL PROTEIN 6.2 g/dL (6.3-8.2)
[2020-01-02] MEDS: NORMAL SALINE 250 ML with FUROSEMIDE 250 MG IV PRN ×2 (17:50)
[2020-01-02] MEDS: PHARMACY COMMUNICATION ORDER MC SCH (17:51)
--- NOTE | 2020-01-02 19:57 | PDOC PROGRESS REPORT ---
Subjective Progress Note for:: 01/02/20 Subjective:: Patient was admitted yesterday, on furosemide infusion, diuresing, on IV antibiotic for cellulitis of both feet Reason For Visit: SEVERE SWELLING LOWER EXTREMITY, CONGESTIVE HEART Physical Exam Vital Signs: Temp Pulse Resp BP Pulse Ox 97.8 F 71 19 125/57 L 94 01/02/20 12:01 01/02/20 19:00 01/02/20 12:01 01/02/20 12:01 01/02/20 12:01 Intake & Output 01/01/20 01/02/20 01/03/20 06:59 06:59 06:59 Intake Total 100 562 Output Total 2650 2200 Balance -2550 -1638 Weight 132.5 kg General appearance: PRESENT: no acute distress Eye exam: PRESENT: PERRLA Respiratory exam: PRESENT: clear to auscultation stephanie Cardiovascular exam: PRESENT: +S1, +S2 GI/Abdominal exam: PRESENT: soft Extremities exam: PRESENT: pedal edema Neurological exam: PRESENT: alert Results Laboratory Results: 01/01/20 11:20 01/02/20 16:58 01/02/20 16:58 Sodium 138.9 Potassium 3.7 Chloride 95 L Carbon Dioxide 38 H Anion Gap 6 BUN 9 Creatinine 0.86 Est GFR ( Amer) > 60 Glucose 103 Calcium 8.5 Total Bilirubin 0.5 AST 17 Alkaline Phosphatase 117 Total Protein 6.2 L Albumin 3.5 01/01/20 11:20 NT-Pro-B Natriuret Pep 1190 H Impressions: Venous Doppler Study 01/01/20 11:06 IMPRESSION: NO EVIDENCE DVT OR SVT IN EITHER LEG. Chest X-Ray 01/01/20 13:03 IMPRESSION: Prominent interstitial opacities, possibly mild edema. No focal consolidation. No large effusion. Assessment & Plan - Diagnosis (1) Acute diastolic (congestive) heart failure Is this a current diagnosis for this admission?: Yes Plan: Continue IV furosemide infusion (2) Severe pulmonary arterial systolic hypertension Is this a current diagnosis for this admission?: Yes (3) COPD (chronic obstructive pulmonary disease) Qualifiers: COPD type: unspecified COPD Qualified Code(s): J44.9 - Chronic obstructive pulmonary disease, unspecified Is this a current diagnosis for this admission?: Yes (4) Chronic venous hypertension with inflammation involving both sides Is this a current diagnosis for this admission?: Yes Plan: Start the Unna boot - Time Time Spent with patient: 25-34 minutes Level of Care: IMCU Medications reviewed and adjusted accordingly: Yes Anticipated discharge: Home Anticipated DC Timeframe: within 72 hours
[2020-01-02] MEDS: CLONIDINE HCL 0.1 MG TABLET PO SCH (21:49)
[2020-01-03] MEDS: CLINDAMYCIN 300 MG/D5W RTU 300 MG/50 ML RTUPB IV SCH ×3 (05:18→21:08)
[2020-01-03] MEDS: OXYCODONE-ACETAMINOPHEN 5-325 MG TABLET PO PRN ×3 (08:17→21:10)
[2020-01-03] MEDS: PREGABALIN 100 MG CAPSULE PO SCH ×2 (10:41→21:07)
[2020-01-03] MEDS: HYDROXYZINE PAMOATE 50 MG CAPSULE PO SCH ×2 (10:42→21:07)
[2020-01-03] MEDS: ENOXAPARIN SODIUM INJ 40 MG/0.4 ML DISP.SYRIN SUBCUT SCH (10:42)
[2020-01-03] MEDS: TRAMADOL HCL 50 MG TABLET PO SCH ×2 (10:42→21:08)
[2020-01-03] MEDS: FLUTICASONE/UMECLIDIN/VILANTER 100-62.5-25 MCG/DOSE IH SCH (10:42)
[2020-01-03] MEDS: LURASIDONE HCL 40 MG TABLET PO SCH (10:42)
[2020-01-03] MEDS: NORMAL SALINE 250 ML with FUROSEMIDE 250 MG IV PRN ×2 (17:27)
[2020-01-03] MEDS: PHARMACY COMMUNICATION ORDER MC SCH (17:30)
--- NOTE | 2020-01-03 19:29 | PDOC PROGRESS REPORT ---
Subjective Progress Note for:: 01/03/20 Subjective:: Patient seen by the bedside,On IV antibiotic, The cellulitis is improving Reason For Visit: SEVERE SWELLING LOWER EXTREMITY, CONGESTIVE HEART Physical Exam Vital Signs: Temp Pulse Resp BP Pulse Ox 97.7 F 77 16 137/63 H 90 L 01/03/20 10:00 01/03/20 14:00 01/03/20 04:00 01/03/20 04:00 01/03/20 04:00 Intake & Output 01/02/20 01/03/20 01/04/20 06:59 06:59 06:59 Intake Total 100 662 97 Output Total 2650 4275 Balance -2289 -2629 97 Weight 132.5 kg 128.2 kg General appearance: PRESENT: no acute distress, morbidly obese Eye exam: PRESENT: PERRLA Respiratory exam: PRESENT: clear to auscultation stephanie Cardiovascular exam: PRESENT: +S1, +S2 GI/Abdominal exam: PRESENT: soft Neurological exam: PRESENT: alert Results Laboratory Results: 01/01/20 11:20 01/02/20 16:58 01/01/20 11:20 NT-Pro-B Natriuret Pep 1190 H Impressions: Venous Doppler Study 01/01/20 11:06 IMPRESSION: NO EVIDENCE DVT OR SVT IN EITHER LEG. Chest X-Ray 01/01/20 13:03 IMPRESSION: Prominent interstitial opacities, possibly mild edema. No focal consolidation. No large effusion. Assessment & Plan - Diagnosis (1) Acute diastolic (congestive) heart failure Is this a current diagnosis for this admission?: Yes Plan: Continue IV furosemide infusion (2) Severe pulmonary arterial systolic hypertension Is this a current diagnosis for this admission?: Yes (3) COPD (chronic obstructive pulmonary disease) Qualifiers: COPD type: unspecified COPD Qualified Code(s): J44.9 - Chronic obstructive pulmonary disease, unspecified Is this a current diagnosis for this admission?: Yes (4) Chronic venous hypertension with inflammation involving both sides Is this a current diagnosis for this admission?: Yes Plan: continue Unna boot (5) Cellulitis and abscess of foot Is this a current diagnosis for this admission?: Yes Plan: Continue IV antibiotic - Time Time Spent with patient: 15-24 minutes Level of Care: IMCU Medications reviewed and adjusted accordingly: Yes Anticipated discharge: Home Anticipated DC Timeframe: within 72 hours
[2020-01-03 20:27] LABS: ALBUMIN 3.8 g/dL (3.5-5.0); ALKALINE PHOSPHATASE 126 U/L (38-126); ANION GAP 7 (5-19); ASPARTATE AMINO TRANSFERASE 20 U/L (17-59); BILIRUBIN,DIRECT 0.4 mg/dL (0.0-0.4); BILIRUBIN,TOTAL 0.6 mg/dL (0.2-1.3); BLOOD UREA NITROGEN 12 mg/dL (7-20); CALCIUM 8.9 mg/dL (8.4-10.2); CARBON DIOXIDE 35 mmol/L (22-30); CHLORIDE 94 mmol/L (98-107); GLUCOSE 130 mg/dL (75-110); POTASSIUM 3.8 mmol/L (3.6-5.0); TOTAL PROTEIN 6.8 g/dL (6.3-8.2)
[2020-01-03] MEDS: CLONIDINE HCL 0.1 MG TABLET PO SCH (21:08)
[2020-01-03 22:07] LABS: ABSOLUTE BASOPHILS # (AUTO) 0.1 10^3/uL (0.0-0.2); ABSOLUTE EOSINOPHILS # (AUTO) 0.3 10^3/uL (0.0-0.6); ABSOLUTE LYMPHOCYTES (AUTO) 1.7 10^3/uL (0.5-4.7); ABSOLUTE NEUT (AUTO) 5.2 10^3/uL (1.7-8.2); BASOPHILS % (AUTO) 0.9 % (0-2); EOSINOPHILS % (AUTO) 3.4 % (0-6); HEMATOCRIT 42.1 % (37.9-51.0); HEMOGLOBIN 14.3 g/dL (13.5-17.0); LYMPHOCYTES % (AUTO) 20.6 % (13-45); MEAN CORPUSCULAR HEMOGLOBIN 29.7 pg (27.0-33.4); MEAN CORPUSCULAR HGB CONC 33.9 g/dL (32.0-36.0); MEAN CORPUSCULAR VOLUME 88 fl (80-97); MONOCYTES % (AUTO) 11.8 % (3-13); PLATELET COUNT 240 10^3/uL (150-450); RED CELL DISTRIBUTION WIDTH 14.2 % (11.5-14.0); SEGMENTED NEUTROPHILS % (AUTO) 63.3 % (42-78); TOTAL CELLS COUNTED % (AUTO) 100 %; WHITE BLOOD COUNT 8.1 10^3/uL (4.0-10.5)
[2020-01-04] MEDS: OXYCODONE-ACETAMINOPHEN 5-325 MG TABLET PO PRN ×3 (04:11→21:22)
[2020-01-04] MEDS: CLINDAMYCIN 300 MG/D5W RTU 300 MG/50 ML RTUPB IV SCH ×2 (05:32→14:09)
[2020-01-04] MEDS: HYDROXYZINE PAMOATE 50 MG CAPSULE PO SCH ×2 (09:57→21:23)
[2020-01-04] MEDS: PREGABALIN 100 MG CAPSULE PO SCH ×2 (09:57→21:22)
[2020-01-04] MEDS: TRAMADOL HCL 50 MG TABLET PO SCH ×2 (09:57→21:22)
[2020-01-04] MEDS: ENOXAPARIN SODIUM INJ 40 MG/0.4 ML DISP.SYRIN SUBCUT SCH (09:58)
[2020-01-04] MEDS: LURASIDONE HCL 40 MG TABLET PO SCH (09:58)
[2020-01-04] MEDS: FLUTICASONE/UMECLIDIN/VILANTER 100-62.5-25 MCG/DOSE IH SCH (09:58)
[2020-01-04] MEDS: NORMAL SALINE 250 ML with FUROSEMIDE 250 MG IV PRN ×2 (19:10)
[2020-01-04] MEDS: PHARMACY COMMUNICATION ORDER MC SCH (19:11)
[2020-01-04] MEDS: CLONIDINE HCL 0.1 MG TABLET PO SCH (21:23)
--- NOTE | 2020-01-04 21:23 | PDOC PROGRESS REPORT ---
Subjective Progress Note for:: 01/04/20 Subjective:: Patient seen by the bedside he continues to improve on present regimen Reason For Visit: SEVERE SWELLING LOWER EXTREMITY, CONGESTIVE HEART Physical Exam Vital Signs: Temp Pulse Resp BP Pulse Ox 98.0 F 81 19 149/86 H 96 01/04/20 13:08 01/04/20 18:20 01/04/20 09:16 01/04/20 18:20 01/04/20 18:20 Intake & Output 01/03/20 01/04/20 01/05/20 06:59 06:59 06:59 Intake Total 662 1299 1469 Output Total 4279 3758 1725 Balance -3613 -2751 -256 Weight 128.2 kg 125.3 kg General appearance: PRESENT: no acute distress Eye exam: PRESENT: PERRLA Respiratory exam: PRESENT: clear to auscultation stephanie Cardiovascular exam: PRESENT: +S1, +S2 GI/Abdominal exam: PRESENT: soft Neurological exam: PRESENT: alert Results Laboratory Results: 01/03/20 21:55 01/03/20 20:03 01/03/20 21:55 WBC 8.1 RBC 4.80 Hgb 14.3 Hct 42.1 MCV 88 MCH 29.7 MCHC 33.9 RDW 14.2 H Plt Count 240 Seg Neutrophils % 63.3 01/01/20 11:20 NT-Pro-B Natriuret Pep 1190 H Impressions: Venous Doppler Study 01/01/20 11:06 IMPRESSION: NO EVIDENCE DVT OR SVT IN EITHER LEG. Chest X-Ray 01/01/20 13:03 IMPRESSION: Prominent interstitial opacities, possibly mild edema. No focal consolidation. No large effusion. Assessment & Plan - Diagnosis (1) Acute diastolic (congestive) heart failure Is this a current diagnosis for this admission?: Yes Plan: Continue IV furosemide infusion (2) Severe pulmonary arterial systolic hypertension Is this a current diagnosis for this admission?: Yes (3) COPD (chronic obstructive pulmonary disease) Qualifiers: COPD type: unspecified COPD Qualified Code(s): J44.9 - Chronic obstructive pulmonary disease, unspecified Is this a current diagnosis for this admission?: Yes (4) Chronic venous hypertension with inflammation involving both sides Is this a current diagnosis for this admission?: Yes (5) Cellulitis and abscess of foot Is this a current diagnosis for this admission?: Yes Plan: Continue IV antibiotic - Time Time Spent with patient: 25-34 minutes Level of Care: IMCU Anticipated discharge: Home Anticipated DC Timeframe: within 72 hours
[2020-01-04 22:04] LABS: ABSOLUTE EOSINOPHILS # (AUTO) 0.5 10^3/uL (0.0-0.6); ABSOLUTE LYMPHOCYTES (AUTO) 1.6 10^3/uL (0.5-4.7); ABSOLUTE MONOCYTES (AUTO) 1.1 10^3/uL (0.1-1.4); ABSOLUTE NEUT (AUTO) 5.8 10^3/uL (1.7-8.2); BASOPHILS % (AUTO) 0.5 % (0-2); EOSINOPHILS % (AUTO) 5.4 % (0-6); HEMATOCRIT 43.8 % (37.9-51.0); HEMOGLOBIN 14.7 g/dL (13.5-17.0); LYMPHOCYTES % (AUTO) 17.4 % (13-45); MEAN CORPUSCULAR HEMOGLOBIN 29.3 pg (27.0-33.4); MEAN CORPUSCULAR HGB CONC 33.5 g/dL (32.0-36.0); MEAN CORPUSCULAR VOLUME 87 fl (80-97); MONOCYTES % (AUTO) 11.8 % (3-13); PLATELET COUNT 249 10^3/uL (150-450); RED BLOOD COUNT 5.01 10^6/uL (4.35-5.55); RED CELL DISTRIBUTION WIDTH 14.4 % (11.5-14.0); SEGMENTED NEUTROPHILS % (AUTO) 64.9 % (42-78); TOTAL CELLS COUNTED % (AUTO) 100 %; WHITE BLOOD COUNT 8.9 10^3/uL (4.0-10.5)
[2020-01-04 22:23] LABS: ALBUMIN 3.7 g/dL (3.5-5.0); ALKALINE PHOSPHATASE 124 U/L (38-126); ASPARTATE AMINO TRANSFERASE 23 U/L (17-59); BILIRUBIN,DIRECT 0.3 mg/dL (0.0-0.4); BILIRUBIN,TOTAL 0.6 mg/dL (0.2-1.3); BLOOD UREA NITROGEN 15 mg/dL (7-20); CALCIUM 9.5 mg/dL (8.4-10.2); CARBON DIOXIDE 35 mmol/L (22-30); GLUCOSE 107 mg/dL (75-110); POTASSIUM 4.1 mmol/L (3.6-5.0); TOTAL PROTEIN 6.5 g/dL (6.3-8.2)
[2020-01-04 22:31] LABS: CHLORIDE 94 mmol/L (98-107)
[2020-01-04 22:36] LABS: ANION GAP 6 (5-19)
[2020-01-05] MEDS: CLINDAMYCIN 300 MG/D5W RTU 300 MG/50 ML RTUPB IV SCH ×2 (00:04→06:33)
[2020-01-05] MEDS: LURASIDONE HCL 40 MG TABLET PO SCH (09:14)
[2020-01-05] MEDS: HYDROXYZINE PAMOATE 50 MG CAPSULE PO SCH (09:18)
[2020-01-05] MEDS: PREGABALIN 100 MG CAPSULE PO SCH (09:20)
[2020-01-05] MEDS: TRAMADOL HCL 50 MG TABLET PO SCH (09:20)
[2020-01-05] MEDS: ENOXAPARIN SODIUM INJ 40 MG/0.4 ML DISP.SYRIN SUBCUT SCH (09:21)
[2020-01-05] MEDS: FLUTICASONE/UMECLIDIN/VILANTER 100-62.5-25 MCG/DOSE IH SCH (09:21)
[2020-01-05] MEDS ORDERED: LOSARTAN POTASSIUM 50 MG TABLET PO SCH (10:00)
[2020-01-05] MEDS: OXYCODONE-ACETAMINOPHEN 5-325 MG TABLET PO PRN (11:11)
--- NOTE | 2020-01-05 12:58 | PDOC DISCHARGE SUMMARY ---
Impression - Admit/DC Date/PCP Admission Date/Primary Care Provider: 01/01/20 12:59 JP MENDES MD Discharge Date: 01/05/20 - Discharge Diagnosis (1) Acute diastolic (congestive) heart failure Is this a current diagnosis for this admission?: Yes (2) Severe pulmonary arterial systolic hypertension Is this a current diagnosis for this admission?: Yes (3) COPD (chronic obstructive pulmonary disease) Is this a current diagnosis for this admission?: Yes (4) Chronic venous hypertension with inflammation involving both sides Is this a current diagnosis for this admission?: Yes (5) Cellulitis and abscess of foot Is this a current diagnosis for this admission?: Yes - Additional Information Discharge Diet: Cardiac Discharge Activity: Activity As Tolerated, Balance Activity w/Rest, Weigh Daily Referrals: RICHARD CARTER MD [ACTIVE STAFF] - 01/10/20 12:30 pm JP MENDES MD [Primary Care Provider] - 01/15/20 1:30 pm Prescriptions: Losartan Potassium [Cozaar 50 mg Tablet] 50 mg PO Q12 #60 tablet Home Medications: Clonazepam [Klonopin 1 mg Tablet] 1 mg PO Q8 02/05/15 Lurasidone HCl [Latuda] 20 mg PO DAILY 02/05/15 Hydroxyzine HCl [Atarax 10 mg Tablet] 50 mg PO BID 07/07/19 Pregabalin [Lyrica] 200 mg PO Q12 07/07/19 Albuterol Sulfate [Proair HFA Inhalation Aerosol 8.5 gm MDI] 2 puff IH Q4HP PRN 07/13/19 Fluticasone/Umeclidin/Vilanter [Trelegy 100-62.5-25 Mcg Ellipta 14 Dose/Dpi] 1 puff IH DAILY 01/01/20 Tramadol HCl [Ultram 50 mg Tablet] 50 mg PO BID 01/01/20 Clonidine HCl [Catapres 0.1 mg Tablet] 0.1 mg PO QHS tablet 01/05/20 Losartan Potassium [Cozaar 50 mg Tablet] 50 mg PO Q12 #60 tablet 01/05/20 Nicotine [Nicoderm 14 mg/24 Hr Transdermal Patch] 1 each TD DAILYP PRN patch.td24 01/05/20 History of Present Illiness History of Present Illness: DAVIAN ROY is a 59 year old male, He came to the office today for evaluation of very severe bilateral lower extremity swelling with painful erythema of both feet. He has a history of severe pulmonary hypertension secondary to COPD ,A stat venous Doppler of the lower extremities was negative for deep vein thrombosisTransthoracic echocardiogram was done, the systolic function of left ventricle was depressed with estimated ejection fraction 45 to 50%, grade 2 diastolic dysfunction the pulmonary pressures not measured on this echocardiogram. Patient continues to engage in high risk behavior including heavy tobacco abuse, he drinks a lot of soda daily, sedentary lifestyle Hospital Course Hospital Course: Patient was admitted for the management of acute diastolic heart failure, severe pulmonary hypertension, cellulitis of both feet. He was treated with IV antibiotic clindamycin, Lasix infusion. Diuresed quite effectively, lost a lot of fluid.Patient was counseled of the need for complete smoking cessation,2D echo was done, it demonstrated, estimated ejection fraction 50% of left ventricle, diastolic dysfunction.He has cellulitis of both feet, treated successfully with IV antibiotic Physical Exam Vital Signs: Temp Pulse Resp BP Pulse Ox 97.5 F 71 18 138/83 H 91 L 01/05/20 10:00 01/05/20 08:35 01/05/20 08:35 01/05/20 08:35 01/05/20 08:35 Intake & Output 01/04/20 01/05/20 01/06/20 06:59 06:59 06:59 Intake Total 1299 1519 Output Total 4050 1025 Balance -5631 -6296 Weight 125.3 kg 125.6 kg General appearance: PRESENT: no acute distress Eye exam: PRESENT: PERRLA Respiratory exam: PRESENT: clear to auscultation stephanie Cardiovascular exam: PRESENT: +S1, +S2 GI/Abdominal exam: PRESENT: soft Neurological exam: PRESENT: alert Results Laboratory Results: WBC 8.9 10^3/uL (4.0-10.5) 01/04/20 21:51 RBC 5.01 10^6/uL (4.35-5.55) 01/04/20 21:51 Hgb 14.7 g/dL (13.5-17.0) 01/04/20 21:51 Hct 43.8 % (37.9-51.0) 01/04/20 21:51 MCV 87 fl (80-97) 01/04/20 21:51 MCH 29.3 pg (27.0-33.4) 01/04/20 21:51 MCHC 33.5 g/dL (32.0-36.0) 01/04/20 21:51 RDW 14.4 % (11.5-14.0) H 01/04/20 21:51 Plt Count 249 10^3/uL (150-450) 01/04/20 21:51 Lymph % (Auto) 17.4 % (13-45) 01/04/20 21:51 Owen % (Auto) 11.8 % (3-13) 01/04/20 21:51 Eos % (Auto) 5.4 % (0-6) 01/04/20 21:51 Baso % (Auto) 0.5 % (0-2) 01/04/20 21:51 Absolute Neuts (auto) 5.8 10^3/uL (1.7-8.2) 01/04/20 21:51 Absolute Lymphs (auto) 1.6 10^3/uL (0.5-4.7) 01/04/20 21:51 Absolute Monos (auto) 1.1 10^3/uL (0.1-1.4) 01/04/20 21:51 Absolute Eos (auto) 0.5 10^3/uL (0.0-0.6) 01/04/20 21:51 Absolute Basos (auto) 0.0 10^3/uL (0.0-0.2) 01/04/20 21:51 Seg Neutrophils % 64.9 % (42-78) 01/04/20 21:51 Platelet Estimate Cancelled 01/03/20 20:03 Sodium 134.9 mmol/L (137-145) L 01/04/20 21:51 Potassium 4.1 mmol/L (3.6-5.0) 01/04/20 21:51 Chloride 94 mmol/L (98-107) L 01/04/20 21:51 Carbon Dioxide 35 mmol/L (22-30) H 01/04/20 21:51 Anion Gap 6 (5-19) 01/04/20 21:51 BUN 15 mg/dL (7-20) 01/04/20 21:51 Creatinine 0.94 mg/dL (0.52-1.25) 01/04/20 21:51 Est GFR ( Amer) > 60 (>60) 01/04/20 21:51 Est GFR (MDRD) Non-Af > 60 (>60) 01/04/20 21:51 Glucose 107 mg/dL (75-110) 01/04/20 21:51 Calcium 9.5 mg/dL (8.4-10.2) 01/04/20 21:51 Total Bilirubin 0.6 mg/dL (0.2-1.3) 01/04/20 21:51 Direct Bilirubin 0.3 mg/dL (0.0-0.4) 01/04/20 21:51 Neonat Total Bilirubin Not Reportable 01/04/20 21:51 Neonat Direct Bilirubin Not Reportable 01/04/20 21:51 Neonat Indirect Bili Not Reportable 01/04/20 21:51 AST 23 U/L (17-59) 01/04/20 21:51 ALT 12 U/L (<50) 01/04/20 21:51 Alkaline Phosphatase 124 U/L (38-126) 01/04/20 21:51 NT-Pro-B Natriuret Pep 1190 pg/mL (<125) H 01/01/20 11:20 Total Protein 6.5 g/dL (6.3-8.2) 01/04/20 21:51 Albumin 3.7 g/dL (3.5-5.0) 01/04/20 21:51 Free T4 1.19 ng/dL (0.78-2.19) 01/01/20 11:20 Urine Creatinine 27.6 mg/dL (22-328) 01/01/20 23:49 Protein/Creatinin Ratio 0.5 mg/mg (0.0-0.2) H 01/01/20 23:49 Urine Total Protein 12.5 mg/dL (<12) H 01/01/20 23:49 Slides for Path Review Cancelled 01/03/20 20:03 01/01/20 11:20 NT-Pro-B Natriuret Pep 1190 H Impressions: Venous Doppler Study 01/01/20 11:06 IMPRESSION: NO EVIDENCE DVT OR SVT IN EITHER LEG. Chest X-Ray 01/01/20 13:03 IMPRESSION: Prominent interstitial opacities, possibly mild edema. No focal consolidation. No large effusion. Stroke Is this a Stroke Patient?: No Acute Heart Failure Is this a Heart Failure Patient?: No
[2020-01-05 14:31] VITALS: BP 164/83
--- NOTE | 2020-01-08 09:59 | XCELERA REPORT ---
[address] [address] Transthoracic Echocardiogram Report Name: DAVIAN ROY Age: 59 yrs Gender: Male : 1960 Patient Status: Inpatient Patient Location: [facility]^A Study Date: 01/05/2020 01:23 PM Height: 71 in Weight: 276 lb BSA: 2.4 m2 Procedure: A two-dimensional transthoracic echocardiogram with color flow and Doppler was performed in limited views only. Study Quality: Fair. Reason For Study: FOLLOW UP ON TV PER DR. ALVARADO History: Pulmonary Hypertension. Ordering Physician: JP MENDES Performed By: Rey Jaimes Interpretation Summary There is no tricuspid stenosis. There is a trace amount of tricuspid regurgitation Right ventricular systolic pressure is normal. RVSP is 26 mm of Hg , with RA mean of 10.No Pulmonary Hypertension. Doppler Measurements & Calculations TR max wilda: 202.7 cm/sec TR max P.4 mmHg Tricuspid Valve There is no tricuspid stenosis. There is a trace amount of tricuspid regurgitation. Right ventricular systolic pressure is normal. RVSP is 26 mm of Hg , with RA mean of 10.No Pulmonary Hypertension. : JP MENDES Lakshmi
== END 2020-01-05 14:54 | disposition home or self-care (01) | DRG 292 ==
LOC: ER 11:00 → EH 12:59 → 3W 14:18
PROVIDERS: ADMIT Internal Medicine; ATTEND Internal Medicine
DX: I50.33 Acute on chronic diastolic (congestive) heart failure (principal); L03.116 Cellulitis of left lower limb; L03.115 Cellulitis of right lower limb; I87.323 Chronic venous hypertension (idiopathic) with inflammation of bilateral lower extremity; J44.9 Chronic obstructive pulmonary disease, unspecified; E78.5 Hyperlipidemia, unspecified; E11.9 Type 2 diabetes mellitus without complications; M19.90 Unspecified osteoarthritis, unspecified site; F32.9 Major depressive disorder, single episode, unspecified; Z90.49 Acquired absence of other specified parts of digestive tract; F17.210 Nicotine dependence, cigarettes, uncomplicated; I27.21 Secondary pulmonary arterial hypertension; Z72.9 Problem related to lifestyle, unspecified
CPT/HCPCS: 36415; 71046; 80048; 80053; 80076; 82570; 83880; 84156; 84439; 85025; 93306; 93308; 93970; 99285; J1650; J1940; J3490; J7050